=== PATIENT | male | born 1950 | race American Indian/Alaskan Native ===

== ENCOUNTER 2017-02-16 16:07 | Inpatient (IN) | payer MEDICARE ==
[2017-02-16] MEDS ORDERED: ADRENALIN ONE (16:11)
[2017-02-16] MEDS ORDERED: ADRENALINE P/F SUB-Q ONE (16:11)
[2017-02-16] MEDS ORDERED: PEPCID IV ONE (16:12)
--- NOTE | 2017-02-16 16:31 | Emergency Department Report ---
HPI - General Chief Complaint: Allergic Reaction Time Seen by Provider: 02/16/17 16:11 - HPI HPI: This is a 66-year-old Afro-[place] male presents the emergency department by EMS from home with complaint of swelling of the tongue and throat that occurred about 2 hours prior to presentation. He denies any swelling of the lips, trauma , shortness of breath, chest pain. However the patient is unable to swallow liquids or his secretions secondary to the symptoms. The patient is on lisinopril. He has never had this happen previously. He has a history of CHF, diabetes and hypertension. His primary care doctor is a Dr. Lao. He did not take anything prior to presentation but was given 125 mg of Solu-Medrol and 25 mg IV Benadryl in route by EMS. ED Past Medical Hx - Past Medical History Hx Hypertension: Yes Hx Congestive Heart Failure: Yes Hx Diabetes: Yes - Surgical History Additional Surgical History: "side surgery for infection" - Social History Smoking Status: Current Every Day Smoker Substance Use Type: Alcohol - Medications Home Medications: Home Medications Medication Instructions Recorded Confirmed Last Taken Type Ibuprofen [Advil 100 MG tab] 200 mg PO Q6H PRN 07/04/16 02/16/17 Unknown History Hydrochlorothiazide [HCTZ] 25 mg PO QDAY #60 tablet 08/13/16 02/16/17 Unknown Rx Lisinopril [Zestril TAB] 40 mg PO QDAY 02/16/17 02/16/17 Unknown History Metformin HCl [Metformin HCl ER] 500 mg PO ONCE 02/16/17 02/16/17 Unknown History Pantoprazole Sodium 40 tab PO ONCE 02/16/17 02/16/17 Unknown History ED Review of Systems ROS: Stated complaint: ANGIO EDEMA Other details as noted in HPI Comment: All other systems reviewed and negative Constitutional: denies: chills, fever Eyes: denies: eye pain, eye discharge, vision change ENT: other (swelling of throat and tongue). denies: ear pain Respiratory: denies: cough, shortness of breath, wheezing Cardiovascular: denies: chest pain, palpitations Gastrointestinal: denies: abdominal pain, nausea, diarrhea Genitourinary: denies: urgency, dysuria Musculoskeletal: denies: back pain, joint swelling, arthralgia Skin: denies: rash, lesions Neurological: denies: headache, weakness, paresthesias Physical Exam - Physical Exam Vital Signs: Vital Signs 02/16/17 16:10 Temperature 98.9 F Pulse Rate 72 Respiratory 20 Rate Blood Pressure 180/93 O2 Sat by Pulse 98 Oximetry Physical Exam: GENERAL: The patient is well-developed well-nourished. HEENT: Normocephalic. Atraumatic. Extraocular motions are intact. Patient has moist mucous membranes. Pupils equal reactive to light bilaterally. Patient has a mallempati of 4. Patient has a swollen tongue. No trismus. There is no active drooling but the patient sounds as if he is unable to swallow or pass his own secretions. NECK: Supple. Trachea is midline. CHEST/LUNGS: Clear to auscultation. There is no respiratory distress noted. HEART/CARDIOVASCULAR: Regular. There is no tachycardia. There is no gallop rub or murmur. ABDOMEN: Abdomen is soft, nontender. Patient has normal bowel sounds. There is no abdominal distention. Obese habitus. SKIN: Skin is warm and dry. NEURO: The patient is awake, alert, and oriented. The patient is cooperative. The patient has no focal neurologic deficits. Patient has muffled speech secondary to swelling in his throat and collection of his secretions in the back of the oropharynx but it does not appear to be slurred speech. MUSCULOSKELETAL: There is no tenderness or deformity. There is no limitation range of motion. There is no evidence of acute injury. ED Course Vital Signs 02/16/17 16:10 Temperature 98.9 F Pulse Rate 72 Respiratory 20 Rate Blood Pressure 180/93 O2 Sat by Pulse 98 Oximetry - Intubation Time Out Performed: Yes Sedative: Etomidate Mg Given: 20 Paralytic: Succinylcholine Mg Given: 120 Laryngoscope: fiberoptic video scope Size: 4 ET Tube Size: 7.5 Tube Secured Depth (cm): 25 Tube Secured Location: lips Tube Placement Confirmation: visualized tube passing t, equal breath sounds bilat, confirmation by capnometr Intubation Complications: difficult intubation, hypoxia (the patient had some transient hypoxia on pulse ox but it came back up with bag valve ventilation) Additional Comments: Patient was a difficult airway secondary to angioedema. An attempt was made with glydescope and the vocal cords were visible but it was hard to pass the ET tube secondary to swelling and secretions. Attempt was made with a 4 Mac blade but once again the intubation was difficult. Patient had some transient hypoxia or desaturation on pulse ox so attempt was stopped and patient recieved bag valve mask ventilation. Anesthesia came bedside and intubated the patient using glydescope. At this point patient had bilateral breath sounds, condensation in the tube and patient's pulse ox 98%. ED Medical Decision Making - Lab Data Result diagrams: 02/16/17 16:49 02/16/17 16:49 - EKG Data -: EKG Interpreted by Me EKG shows normal: sinus rhythm, axis, intervals, QRS complexes, ST-T waves ( Nonspecific ST-T waves) Rate: tachycardia (109 bpm) - EKG Data When compared to previous EKG there are: previous EKG unavailable Interpretation: other (sinus tachycardia, nonspecific ST-T changes) - Radiology Data Radiology results: image reviewed interpreted by me: Chest x-ray shows the ET tube just below the clavicular heads. No pneumothorax. No obvious pleural effusion or pneumonia. - Medical Decision Making 66-year-old male presents to the emergency department with angioedema of the tongue and feeling as if his throat is swollen. The patient is talking garbled secondary to a collection of secretions in the back of the throat. He already received Solu-Medrol and Benadryl in route. Patient was given Pepcid and epinephrine in the emergency department. Continued to watch him to see if he would improve but he did not. But the patient not handling his secretions and the complaint of tongue and throat swelling, there was concern for impending airway failure. I spoke with the patient in detail about the benefits and need for intubation as well as the risks of this procedure and he agreed to proceed. Patient was given etomidate and succinylcholine for RSI. The patient had appropriate sedation and paralysis, and attempt was made with the glydescope. The vocal cords were visible but due to the angioedema and swelling it was hard to pass the tube. When this did not work the patient received bag valve ventilation. An attempt was then made with a Mac 4 blade but there was too may secretions seen and no obvious visible cords. Patient started having some desaturation so this attempt was stopped and we did bag valve ventilation. With 2 failed attempts, I was preparing for possible surgical airway when anesthesia arrived and was able to do glydescope intubation. At this point there was condensation in the tube, bilateral breath sounds, no breath sounds over the abdomen and color change capnography. Oxygen saturation went back up to 100%. Chest x-ray postintubation shows ET tube in appropriate position, no pneumothorax and no other acute process seen in the chest. Patient's labs are mostly unremarkable the patient will remain sedated and comfortable while on the vent and he will go to the ICU where they will try to wean him back off. Accepted for admission by the hospitalist, Dr. Reyes. - Differential Diagnosis angioedema, complement deficiency, allergic reaction Critical Care Time: No Critical care attestation.: If time is entered above; I have spent that time in minutes in the direct care of this critically ill patient, excluding procedure time. ED Disposition Clinical Impression: Acute respiratory failure Qualifiers: Respiratory failure complication: unspecified whether with hypoxia or hypercapnia Qualified Code(s): J96.00 - Acute respiratory failure, unspecified whether with hypoxia or hypercapnia Angioedema Qualifiers: Encounter type: initial encounter Qualified Code(s): T78.3XXA - Angioneurotic edema, initial encounter Disposition: OP ADMITTED IP TO THIS HOSP Is pt being admited?: Yes Condition: Serious Time of Disposition: 22:23
[2017-02-16] MEDS ORDERED: AMIDATE IV ONE ×3 (16:44→17:05)
[2017-02-16] MEDS ORDERED: QUELICIN IV ONE ×2 (16:44→17:15)
[2017-02-16] MEDS ORDERED: VASELINE LIP THERAPY TP PRN (16:45)
[2017-02-16] MEDS ORDERED: ARTIFICIAL TEARS OPHTH OINT OU PRN (16:45)
[2017-02-16] MEDS ORDERED: QUELICIN ONE (17:05)
[2017-02-16] MEDS ORDERED: VERSED IV ONE (17:05)
[2017-02-16 17:11] LABS: Basophils % (Auto) 0.5 % (0.0-1.8); Eosinophils % (Auto) 1.4 % (0.0-4.3); Hematocrit 45.5 % (35.5-45.6); Hemoglobin 15.3 gm/dl (11.8-15.2); Mean Corpuscular HGB Conc 34 % (32-34); Mean Corpuscular Hemoglobin 32 pg (28-32); Mean Corpuscular Volume 94 fl (84-94); Platelet Count 154 K/mm3 (140-440); Red Blood Count 4.86 M/mm3 (3.65-5.03); Red Cell Distribution Width 14.2 % (13.2-15.2); White Blood Count 10.7 K/mm3 (4.5-11.0)
[2017-02-16] MEDS ORDERED: DIPRIVAN 10 MG/ML 1,000 MG/100 ML BOTTLE IV ONE (17:15)
[2017-02-16 17:23] LABS: BUN/Creatinine Ratio 11.25; Blood Urea Nitrogen 9 mg/dL (9-20); Calcium 9.2 mg/dL (8.4-10.2); Carbon Dioxide 24 mmol/L (22-30); Glucose 145 mg/dL (75-100)
[2017-02-16 17:24] LABS: Anion Gap 18 mmol/L; Chloride 97.8 mmol/L (98-107); Potassium 3.6 mmol/L (3.6-5.0); Sodium 136 mmol/L (137-145)
[2017-02-16] MEDS: DIPRIVAN 10 MG/ML 1,000 MG/100 ML BOTTLE IV SCH (17:27)
--- NOTE | 2017-02-16 17:29 | Admit Criteria Form ---
Admission Criteria Documentation: RESPIRATORY FAILURE GRG Clinical Indications for Admission to Inpatient Care (Place 'X' for any and all applicable criteria): Hospital admission is needed for appropriate care of the patient because of acute respiratory failure or insufficiency as indicated by ANY ONE of the following(1)(2)(3)(4)(5)(6)(7)(8): [X]I. Mechanical ventilation needed (acute invasive or noninvasive) [ ]II. Severe ventilation deficit as indicated by ANY ONE of the following (9) [ ]a) Respiratory acidosis (pH less than 7.32 and partial pressure of carbon dioxide greater than 40 mm Hg (5.3 kPa)) [ ]b) Partial pressure of carbon dioxide greater than 44 mm Hg (5.9 kPa ) (new) [ ]c) Airflow measurements less than 25% of predicted (eg, peak expiratory flow rate less than 100 L/minute) [ ]d) Forced vital capacity less than 15 mL/kg of ideal body weight, or 50% decrease in vital capacity from baseline [ ]III. Noncardiac pulmonary edema not resolving with rapid emergency treatment (8) [ ]IV. Severe respiratory distress as indicated by ANY ONE of the following: [ ]a) Severe tachypnea (respiratory rate greater than 30, greater than 45 for 6-month-old, greater than 60 for ) [ ]b) Severe hypoxemia (partial pressure of oxygen less than 50 mm Hg ( 6.7 kPa) on greater than 50% oxygen or partial pressure of oxygen to FIO2 ratio less than 200) [ ]c) Mental status deterioration from respiratory disease [X]V. Airway obstruction or inadequate protection [A](10)(11) The original [employer] content created by [employer] has been revised. The portions of the content which have been revised are identified through the use of italic text or in bold, and [facility] has neither reviewed nor approved the modified material. All other unmodified content is copyright [employer]. Please see references footnoted in the original [employer] edition 2016 Admission Criteria Met: Yes
--- NOTE | 2017-02-16 18:18 | History and Physical Report ---
History of Present Illness Chief complaint: tongue swelling History of present illness: 66 YO Male with HTN, CHF, DM, Nicotine Dependence, GERD presents to ED for evaluation. Pt has been experiencing swelling of the tongue and throat that began about 2 hours prior to presentation. Pt seen and evaluated in ED and was found to be unable to swallow liquids or control his secretions. Pt was drooling and unable to protect his airway. Pt intubated due to pending airway compromise. Past History Past Medical History: diabetes, heart failure, hypertension Past Surgical History: No surgical history, Other (reviewed) Social history: single. denies: smoking, alcohol abuse, prescription drug abuse Family history: diabetes, hypertension Medications and Allergies Allergies Allergy/AdvReac Type Severity Reaction Status Date / Time No Known Allergies Allergy Unverified 07/01/16 14:05 Home Medications Medication Instructions Recorded Confirmed Last Taken Type Ibuprofen [Advil 100 MG tab] 200 mg PO Q6H PRN 07/04/16 02/16/17 Unknown History Hydrochlorothiazide [HCTZ] 25 mg PO QDAY #60 tablet 08/13/16 02/16/17 Unknown Rx Lisinopril [Zestril TAB] 40 mg PO QDAY 02/16/17 02/16/17 Unknown History Metformin HCl [Metformin HCl ER] 500 mg PO ONCE 02/16/17 02/16/17 Unknown History Pantoprazole Sodium 40 tab PO ONCE 02/16/17 02/16/17 Unknown History Active Meds: Active Medications Hydrophilic Ointment (Vaseline Lip Therapy) 1 applic TP Q2HR PRN PRN Reason: Dry Lips Fentanyl Citrate (Fentanyl Drip Premix) 2,000 mcg in 100 mls @ 6.124 mls/hr IV TITR VENU; 1 MCG/KG/HR PRN Reason: Protocol Multi-Ingred Cream/Lotion/Oil/Oint (Artificial Tears Ophth Oint) 1 applic OU Q4HR PRN PRN Reason: Dry Eye(s) Review of Systems Constitutional: other (swelling) Exam - Constitutional Vitals: Temp Pulse Resp BP Pulse Ox 98.9 F 72 20 180/93 98 02/16/17 16:10 02/16/17 16:10 02/16/17 16:10 02/16/17 16:10 02/16/17 16:10 General appearance: Present: severe distress - Neck Neck: Present: supple - Respiratory Respiratory: bilateral: diminished - Cardiovascular Rhythm: regular Heart Sounds: Present: S1 & S2 - Extremities Extremities: no ischemia Extremity abnormal: edema Peripheral Pulses: within normal limits - Abdominal General gastrointestinal: Present: soft, non-tender, non-distended - Integumentary Integumentary: Present: clear, warm, dry - Psychiatric Psychiatric: no intact judgment & insight, no memory intact - Neurologic Neurologic: other (Intubated, Sedated, on vent) Results - Labs CBC & Chem 7: 02/16/17 16:49 02/16/17 16:49 Labs: Abnormal lab results 02/16/17 02/16/17 Range/Units 16:49 16:49 Hgb 15.3 H (11.8-15.2) gm/dl Seg Neutrophils % 76.8 H (40.0-70.0) % Seg Neutrophils # 8.2 H (1.8-7.7) K/mm3 Sodium 136 L (137-145) mmol/L Chloride 97.8 L (98-107) mmol/L Glucose 145 H (75-100) mg/dL Assessment and Plan - Patient Problems (1) Acute respiratory failure Current Visit: Yes Status: Acute Qualifiers: Respiratory failure complication: R Plan to address problem: Acute Respiratory Failure: Supplemental oxygen, nebs, wean vent as tolerated, Pulmonary consulted, SBT in AM. The high probability of a clinically significant, sudden or life threatening deterioration of the [Pulmonary,Cardiac] system(s) required my full and direct attention, intervention and personal management. The aggregate critical care time was [60] minutes. This time is in addition to time spent performing reported procedures but includes the following: [x] Data Review and interpretation [x] Patient assessment and monitoring of vital signs [x] Documentation [x] Medication orders and management (2) Angioedema Current Visit: Yes Status: Acute Qualifiers: Encounter type: E Plan to address problem: steroid therapy, supportive care (3) HTN (hypertension) Current Visit: Yes Status: Acute Qualifiers: Hypertension type: H Plan to address problem: monitor bp q shift, supportive care, hydralazine prn. (4) CHF (congestive heart failure) Current Visit: Yes Status: Chronic Qualifiers: Congestive heart failure type: C Congestive heart failure chronicity: C Plan to address problem: fluid restriction, supportive care, remote telemetry, (5) DVT prophylaxis Current Visit: Yes Status: Acute
[2017-02-16] MEDS: fentaNYL DRIP Premix 2,000 MCG/100 ML BAG IV SCH (18:38)
[2017-02-16] MEDS ORDERED: DUONEB 0.5 MG-3 MG/3 ML SOLN IH PRN (18:46)
[2017-02-16] MEDS ORDERED: DULCOLAX PR PRN (18:46)
[2017-02-16] MEDS ORDERED: ALUM-MAG HYDROX-SIMETH 200-200-20MG/5ML PO PRN (18:46)
[2017-02-16] MEDS ORDERED: MILK OF MAGNESIA PO PRN (18:46)
[2017-02-16] MEDS ORDERED: PROVENTIL IH PRN (18:52)
[2017-02-16 22:49] LABS: ISTAT Base Excess -3; ISTAT HCO3 23.7; ISTAT PCO2 46.8 (35-45); ISTAT PH 7.312 (7.35-7.45); ISTAT PO2 118 (80-105); ISTAT SO2 98; ISTAT TCO2 25
--- NOTE | 2017-02-17 07:18 | XRay Report ---
Single view chest: History: ET tube placement. Findings: Cardiomegaly. Trachea is midline. Tip of endotracheal tube in normal position. No acute consolidation, pneumothorax or pleural effusion. Impression: No acute cardiopulmonary findings.
[2017-02-17] MEDS: fentaNYL DRIP Premix 2,000 MCG/100 ML BAG IV SCH (08:37)
--- NOTE | 2017-02-17 08:38 | XRay Report ---
AP chest x-ray. History: Respiratory failure. Findings: There are no acute findings or interval changes since yesterday study on February 16. The endotracheal tube is in satisfactory position.
[2017-02-17 09:32] LABS: ISTAT Base Excess -1; ISTAT HCO3 23.9; ISTAT PCO2 40.9 (35-45); ISTAT PH 7.375 (7.35-7.45); ISTAT PO2 99 (80-105); ISTAT SO2 97; ISTAT TCO2 25
[2017-02-17] MEDS: DIPRIVAN 10 MG/ML 1,000 MG/100 ML BOTTLE IV SCH ×2 (09:41→16:09)
[2017-02-17] MEDS: PEPCID IV SCH ×2 (09:47→22:53)
[2017-02-17] MEDS: LOVENOX SUB-Q SCH (09:47)
--- NOTE | 2017-02-17 12:21 | Consultation ---
History of Present Illness Consult date: 02/17/17 Requesting physician: BLESSING CORDERO Reason for consult: other (angioedema, intubated for airway protection) History of present illness: 66 y/o male with known hypertension admitted with acute respiratory failure requiring mechanical ventilation secondary to angioedema thought secondary to GRACIE inhibitor therapy. currently patient is intubated and sedated. Stable. Past History Past Medical History: diabetes, heart failure, hypertension Past Surgical History: No surgical history, Other (reviewed) Social history: single. denies: smoking, alcohol abuse, prescription drug abuse Family history: diabetes, hypertension Medications and Allergies Allergies Allergy/AdvReac Type Severity Reaction Status Date / Time No Known Allergies Allergy Unverified 07/01/16 14:05 Home Medications Medication Instructions Recorded Confirmed Last Taken Type Ibuprofen [Advil 100 MG tab] 200 mg PO Q6H PRN 07/04/16 02/16/17 Unknown History Hydrochlorothiazide [HCTZ] 25 mg PO QDAY #60 tablet 08/13/16 02/16/17 Unknown Rx Lisinopril [Zestril TAB] 40 mg PO QDAY 02/16/17 02/16/17 Unknown History Metformin HCl [Metformin HCl ER] 500 mg PO ONCE 02/16/17 02/16/17 Unknown History Pantoprazole Sodium 40 tab PO ONCE 02/16/17 02/16/17 Unknown History Active Meds: Active Medications Al Hydrox/Mg Hydrox/Simethicone (Alum-Mag Hydrox-Simeth [id number]/5ml) 30 ml PO Q4H PRN PRN Reason: Indigestion Albuterol (Proventil) 2.5 mg IH Q6HRT PRN PRN Reason: Wheezing Bisacodyl (Dulcolax) 10 mg DE QDAY PRN PRN Reason: constipation unrelieved by MOM Diphenhydramine HCl (Benadryl) 25 mg IV Q6HR VENU Enoxaparin Sodium (Lovenox) 40 mg SUB-Q QDAY [facility] Last Admin: 02/17/17 09:47 Dose: 40 mg Famotidine (Pepcid) 20 mg IV BID [facility] Last Admin: 02/17/17 09:47 Dose: 20 mg Hydrophilic Ointment (Vaseline Lip Therapy) 1 applic TP Q2HR PRN PRN Reason: Dry Lips Fentanyl Citrate (Fentanyl Drip Premix) 2,000 mcg in 100 mls @ 6.124 mls/hr IV TITR VENU; 1 MCG/KG/HR PRN Reason: Protocol Last Admin: 02/17/17 08:37 Dose: 1 mcg/kg/hr, 6.124 mls/hr Propofol (Diprivan 10 Mg/Ml) 1,000 mg in 100 mls @ 3.674 mls/hr IV TITR VENU; 5 MCG/KG/MIN PRN Reason: Protocol Last Admin: 02/17/17 09:41 Dose: 30 mcg/kg/min, 22.045 mls/hr Magnesium Hydroxide (Milk Of Magnesia) 30 ml PO Q4H PRN PRN Reason: Constipation Methylprednisolone Sodium Succinate (Solu-Medrol) 60 mg IV Q8HR VENU Multi-Ingred Cream/Lotion/Oil/Oint (Artificial Tears Ophth Oint) 1 applic OU Q4HR PRN PRN Reason: Dry Eye(s) Review of Systems ROS unobtainable: due to endotracheal tube Physical Examination Vital signs: Vital Signs Temp Pulse Resp BP Pulse Ox 98.9 F 72 20 180/93 98 02/16/17 16:10 02/16/17 16:10 02/16/17 16:10 02/16/17 16:10 02/16/17 16:10 General appearance: no acute distress, alert Eyes: non-icteric ENT: other (orally intubated and sedated) Neck: supple Effort: normal Ascultation: Bilateral: clear Percussion: Bilateral: not dull Cardiovascular: regular rate and rhythm Gastrointestinal: normoactive bowel sounds, soft, non-tender Extremities: no cyanosis, no edema, pink and warm, pulses normal normal mental status, non-focal exam mood appropriate, affect normal Results - Laboratory Findings CBC and BMP: 02/16/17 16:49 02/16/17 16:49 ABG POC ABG pH 7.375 (7.35-7.45) 02/17/17 09:22 POC ABG pCO2 40.9 (35-45) 02/17/17 09:22 POC ABG pO2 99 (80-105) 02/17/17 09:22 POC ABG HCO3 23.9 02/17/17 09:22 POC ABG Total CO2 25 02/17/17 09:22 POC ABG O2 Sat 97 02/17/17 09:22 Abnormal lab findings: Abnormal Labs 02/16/17 02/17/17 22:16 07:35 POC ABG pH 7.312 L POC ABG pCO2 46.8 H POC ABG pO2 118 H POC Glucose 187 H Assessment and Plan 66 y/o male with acute respiratory failure secondary to angioedema thought secondary GRACIE inhibitor therapy. 1. Increase steroids to 60q8 2. Scheduled benadryl 3. Will need to increase frequency of fingersticks given increase in roids and diabetes 4. Daily cuff leak tests 5. BP control 6. Need to add gracie as allergy once family brings in remainder of medication list, to make sure this is the only medicine that could have resulted in this. CCT 31
[2017-02-17] MEDS: BENADRYL IV SCH (13:01)
--- NOTE | 2017-02-17 19:27 | Progress Note ---
Assessment and Plan Assessment and plan: 1. Acute respiratory failure Due to angioedema and inability to protect the airway Intubated Pulmonary following 2. Angioedema Likely secondary to lisinopril (which was recently started) Discontinued On IV corticosteroids, antihistamines Supportive care (intubated) 3. HTN Currently BP within normal limits on no medications ACEI discontinued due to angina edema If BP trends up, will start diuretic/BB?CCB 4. ? CHF Unsure abut diagnosis of CHF CXR showing cardiomegaly and vascular congestion On GRACIE inhibitor and HCTZ at home Will discuss with family to see if he is followed by a icing coater or had a recent echocardiogram GRACIE inhibitor discontinued due to angioedema Consider starting BB along with diuretic +/- CCB 5. DM At home on Metformin SSI based on accu-checks while he is on corticosteroids 6. DVT/GI prophylaxis History Interval history: intubated and sedated this morning, no events overnight family present, updated; stating that he was recently strated on Lisinopril, medications that most likely caused the angioedema Hospitalist Physical - Constitutional Vitals: Temp Pulse Resp BP Pulse Ox 98.3 F 59 L 20 132/70 98 02/17/17 16:00 02/17/17 17:17 02/17/17 16:40 02/17/17 16:40 02/17/17 16:40 General appearance: Present: no acute distress, obese - EENT Eyes: Present: PERRL - Neck Neck: Present: supple. Absent: enlarged thyroid, masses or JVD - Respiratory Respiratory effort: other (intubated) Respiratory: bilateral: CTA, negative: rhonchi, wheezing - Cardiovascular Rhythm: regular Heart Sounds: Present: S1 & S2. Absent: systolic murmur - Extremities Extremities: no ischemia - Abdominal General gastrointestinal: soft, non-tender, non-distended, normal bowel sounds - Psychiatric Psychiatric: other (sedated) - Neurologic Neurologic: other (unable to assess) Results - Labs CBC & Chem 7: 02/16/17 16:49 02/16/17 16:49 Labs: Laboratory Last Values WBC 10.7 K/mm3 (4.5-11.0) 02/16/17 16:49 RBC 4.86 M/mm3 (3.65-5.03) 02/16/17 16:49 Hgb 15.3 gm/dl (11.8-15.2) H 02/16/17 16:49 Hct 45.5 % (35.5-45.6) 02/16/17 16:49 MCV 94 fl (84-94) 02/16/17 16:49 MCH 32 pg (28-32) 02/16/17 16:49 MCHC 34 % (32-34) 02/16/17 16:49 RDW 14.2 % (13.2-15.2) 02/16/17 16:49 Plt Count 154 K/mm3 (140-440) 02/16/17 16:49 Lymph % (Auto) 15.2 % (13.4-35.0) 02/16/17 16:49 [place] % (Auto) 6.1 % (0.0-7.3) 02/16/17 16:49 Eos % (Auto) 1.4 % (0.0-4.3) 02/16/17 16:49 Baso % (Auto) 0.5 % (0.0-1.8) 02/16/17 16:49 Lymph # 1.6 K/mm3 (1.2-5.4) 02/16/17 16:49 [place] # 0.7 K/mm3 (0.0-0.8) 02/16/17 16:49 Eos # 0.2 K/mm3 (0.0-0.4) 02/16/17 16:49 Baso # 0.1 K/mm3 (0.0-0.1) 02/16/17 16:49 Seg Neutrophils % 76.8 % (40.0-70.0) H 02/16/17 16:49 Seg Neutrophils # 8.2 K/mm3 (1.8-7.7) H 02/16/17 16:49 POC ABG pH 7.375 (7.35-7.45) 02/17/17 09:22 POC ABG pCO2 40.9 (35-45) 02/17/17 09:22 POC ABG pO2 99 (80-105) 02/17/17 09:22 POC ABG HCO3 23.9 02/17/17 09:22 POC ABG Total CO2 25 02/17/17 09:22 POC ABG O2 Sat 97 02/17/17 09:22 POC ABG Base Excess -1 02/17/17 09:22 FiO2 40 % 02/17/17 09:22 Sodium 136 mmol/L (137-145) L 02/16/17 16:49 Potassium 3.6 mmol/L (3.6-5.0) 02/16/17 16:49 Chloride 97.8 mmol/L (98-107) L 02/16/17 16:49 Carbon Dioxide 24 mmol/L (22-30) 02/16/17 16:49 Anion Gap 18 mmol/L 02/16/17 16:49 BUN 9 mg/dL (9-20) 02/16/17 16:49 Creatinine 0.8 mg/dL (0.8-1.5) 02/16/17 16:49 Estimated GFR > 60 ml/min 02/16/17 16:49 BUN/Creatinine Ratio 11.25 % 02/16/17 16:49 Glucose 145 mg/dL (75-100) H 02/16/17 16:49 POC Glucose 184 (70-105) H 02/17/17 15:27 Calcium 9.2 mg/dL (8.4-10.2) 02/16/17 16:49 Troponin T < 0.010 ng/mL (0.00-0.029) 02/16/17 16:49
[2017-02-17] MEDS: NOVOLOG SUB-Q SCH (22:52)
[2017-02-18] MEDS: BENADRYL IV SCH ×5 (06:57→18:29)
[2017-02-18] MEDS: fentaNYL DRIP Premix 2,000 MCG/100 ML BAG IV SCH (06:58)
[2017-02-18 07:29] LABS: ISTAT Base Excess 4; ISTAT HCO3 28.6; ISTAT PCO2 43.2 (35-45); ISTAT PH 7.429 (7.35-7.45); ISTAT PO2 108 (80-105); ISTAT SO2 98; ISTAT TCO2 30
[2017-02-18] MEDS: NOVOLOG SUB-Q SCH ×6 (08:33→22:29)
[2017-02-18] MEDS: LOVENOX SUB-Q SCH (09:52)
[2017-02-18] MEDS: PEPCID IV SCH ×2 (09:53→22:27)
--- NOTE | 2017-02-18 09:57 | XRay Report ---
Single view chest: Compared to 02/17/17. History: Followup of respiratory failure. Findings: Cardiomegaly. Trachea is midline. Tip of endotracheal tube in normal position. No consolidation, pneumothorax or pleural effusion. Impression No acute cardiopulmonary findings.
--- NOTE | 2017-02-18 11:37 | Progress Note ---
Assessment and Plan 66 y/o male with acute respiratory failure secondary to angioedema thought secondary GRACIE inhibitor therapy. 1. Increase steroids to 125q8 2. Scheduled benadryl to continue 3. Continue q4hour fingersticks 4. Daily cuff leak tests 5. BP control 6. Need to add gracie as allergy once family brings in remainder of medication list, to make sure this is the only medicine that could have resulted in this. CCT 31 Subjective Date of service: 02/18/17 Interval history: No acute events. Still no air leak. Nursing was unable to pass DH on yesterday thought secondary to swelling. Unable to feed patient on yesterday. Objective Vital Signs - 12hr 02/17/17 02/17/17 02/18/17 23:40 23:50 00:00 Temperature 99.0 F Pulse Rate 59 L 64 67 Respiratory 20 20 20 Rate Blood Pressure 140/71 140/71 144/79 O2 Sat by Pulse 97 99 92 Oximetry 02/18/17 02/18/17 02/18/17 00:10 00:20 00:21 Temperature Pulse Rate 71 67 62 Respiratory 22 11 L Rate Blood Pressure 144/79 144/79 140/71 O2 Sat by Pulse 98 96 95 Oximetry 02/18/17 02/18/17 02/18/17 00:30 00:40 00:50 Temperature Pulse Rate 68 63 64 Respiratory 14 20 20 Rate Blood Pressure 144/79 144/79 144/79 O2 Sat by Pulse 97 97 96 Oximetry 02/18/17 02/18/17 02/18/17 01:00 01:10 01:20 Temperature Pulse Rate 63 63 60 Respiratory 20 20 20 Rate Blood Pressure 139/79 139/79 139/79 O2 Sat by Pulse 93 97 96 Oximetry 02/18/17 02/18/17 02/18/17 01:30 01:40 01:50 Temperature Pulse Rate 64 62 64 Respiratory 20 20 20 Rate Blood Pressure 139/79 139/79 139/79 O2 Sat by Pulse 97 97 97 Oximetry 02/18/17 02/18/17 02/18/17 02:00 02:10 02:20 Temperature Pulse Rate 60 59 L 59 L Respiratory 20 20 20 Rate Blood Pressure 136/78 136/78 136/78 O2 Sat by Pulse 92 97 97 Oximetry 02/18/17 02/18/17 02/18/17 02:30 02:40 02:50 Temperature Pulse Rate 59 L 61 65 Respiratory 20 20 18 Rate Blood Pressure 136/78 136/78 136/78 O2 Sat by Pulse 96 99 99 Oximetry 02/18/17 02/18/17 02/18/17 03:00 03:10 03:20 Temperature Pulse Rate 57 L 58 L 56 L Respiratory 20 20 20 Rate Blood Pressure 136/78 124/71 O2 Sat by Pulse 98 98 98 Oximetry 02/18/17 02/18/17 02/18/17 03:30 03:40 03:52 Temperature Pulse Rate 58 L 59 L 60 Respiratory 20 20 19 Rate Blood Pressure 124/71 124/71 124/71 O2 Sat by Pulse 98 98 97 Oximetry 02/18/17 02/18/17 02/18/17 04:00 04:10 04:20 Temperature 98.9 F Pulse Rate 57 L 64 58 L Respiratory 20 20 20 Rate Blood Pressure 124/71 129/71 129/71 O2 Sat by Pulse 97 96 98 Oximetry 02/18/17 02/18/17 02/18/17 04:30 04:40 04:50 Temperature Pulse Rate 65 65 60 Respiratory 17 20 20 Rate Blood Pressure 129/71 129/71 129/71 O2 Sat by Pulse 99 98 99 Oximetry 02/18/17 02/18/17 02/18/17 05:00 05:10 05:20 Temperature Pulse Rate 66 62 63 Respiratory 20 19 20 Rate Blood Pressure 136/78 136/78 136/78 O2 Sat by Pulse 92 97 97 Oximetry 02/18/17 02/18/17 02/18/17 05:30 05:40 05:50 Temperature Pulse Rate 67 66 63 Respiratory 20 17 20 Rate Blood Pressure 136/78 136/78 136/78 O2 Sat by Pulse 97 97 98 Oximetry 02/18/17 02/18/17 02/18/17 06:00 06:10 06:20 Temperature Pulse Rate 61 65 62 Respiratory 20 19 20 Rate Blood Pressure 136/78 140/74 140/74 O2 Sat by Pulse 96 97 95 Oximetry 02/18/17 02/18/17 02/18/17 06:30 06:40 06:50 Temperature Pulse Rate 62 62 61 Respiratory 20 19 20 Rate Blood Pressure 140/74 140/74 140/74 O2 Sat by Pulse 97 97 97 Oximetry 02/18/17 02/18/17 02/18/17 07:00 07:10 07:20 Temperature Pulse Rate 60 57 L 57 L Respiratory 20 20 20 Rate Blood Pressure 140/74 136/77 136/77 O2 Sat by Pulse 96 96 97 Oximetry 02/18/17 02/18/17 02/18/17 07:30 07:37 07:40 Temperature Pulse Rate 62 60 61 Respiratory 20 20 Rate Blood Pressure 136/77 136/77 136/77 O2 Sat by Pulse 98 97 97 Oximetry 02/18/17 02/18/17 02/18/17 07:45 07:50 08:00 Temperature 98.6 F Pulse Rate 75 61 Respiratory 20 20 Rate Blood Pressure 136/77 136/77 O2 Sat by Pulse 98 97 Oximetry 02/18/17 02/18/17 02/18/17 08:03 08:10 08:20 Temperature Pulse Rate 64 60 59 L Respiratory 20 20 Rate Blood Pressure 140/80 140/80 140/80 O2 Sat by Pulse 97 98 98 Oximetry 02/18/17 02/18/17 02/18/17 08:30 08:40 08:50 Temperature Pulse Rate 59 L 59 L 59 L Respiratory 20 20 20 Rate Blood Pressure 140/80 140/80 140/80 O2 Sat by Pulse 97 98 98 Oximetry 02/18/17 09:00 Temperature Pulse Rate 66 Respiratory 20 Rate Blood Pressure 140/80 O2 Sat by Pulse 96 Oximetry Constitutional: no acute distress, alert Eyes: non-icteric ENT: other (orally intubated and sedated) Neck: supple Effort: normal Ascultation: Bilateral: clear Percussion: Bilateral: not dull Cardiovascular: regular rate and rhythm Gastrointestinal: normoactive bowel sounds, soft, non-tender Extremities: no cyanosis, no edema, pink and warm, pulses normal Neurologic: normal mental status, non-focal exam Psychiatric: mood appropriate, affect normal CBC and BMP: 02/16/17 16:49 02/16/17 16:49 ABG, PT/INR, D-dimer: ABG POC ABG pH 7.429 (7.35-7.45) 02/18/17 04:35 POC ABG pCO2 43.2 (35-45) 02/18/17 04:35 POC ABG pO2 108 (80-105) H 02/18/17 04:35 POC ABG HCO3 28.6 02/18/17 04:35 POC ABG Total CO2 30 02/18/17 04:35 POC ABG O2 Sat 98 02/18/17 04:35 Abnormal lab findings: Abnormal Labs 02/16/17 02/17/17 02/17/17 22:16 07:35 12:05 POC ABG pH 7.312 L POC ABG pCO2 46.8 H POC ABG pO2 118 H POC Glucose 187 H 167 H 02/17/17 02/17/17 02/18/17 15:27 22:41 02:37 POC ABG pH POC ABG pCO2 POC ABG pO2 POC Glucose 184 H 187 H 156 H 02/18/17 02/18/17 02/18/17 04:35 05:41 07:32 POC ABG pH POC ABG pCO2 POC ABG pO2 108 H POC Glucose 144 H 149 H
--- NOTE | 2017-02-18 15:05 | XRay Report ---
KUB History: Dobbhoff placement. Findings: Tip of Dobbhoff feeding tube is noted in mid stomach. No bowel distention. Impression: Tip of Dobbhoff feeding tube in mid stomach.
--- NOTE | 2017-02-18 17:50 | Progress Note ---
Assessment and Plan Assessment and plan: 1. Acute respiratory failure Due to angioedema and inability to protect the airway Remains intubated Pulmonary following 2. Angioedema Likely secondary to lisinopril (which was recently started) Discontinued On IV corticosteroids (dose increased), antihistamines Supportive care (intubated) 3. HTN Currently BP within normal limits on no medications ACEI discontinued due to angina edema If BP trends up, will start diuretic/BB?CCB 4. ? CHF Unsure abut diagnosis of CHF CXR showing cardiomegaly and vascular congestion On GRACIE inhibitor and HCTZ at home Will discuss with family to see if he is followed by a offbearer or had a recent echocardiogram GRACIE inhibitor discontinued due to angioedema Consider starting BB along with diuretic +/- CCB 5. DM At home on Metformin SSI based on accu-checks while he is on corticosteroids 6. DVT/GI prophylaxis History Interval history: remains intubated (secondary to angioedema); having large amount of secretions Hospitalist Physical - Constitutional Vitals: Temp Pulse Resp BP Pulse Ox 99.3 F 58 L 20 141/75 99 02/18/17 16:00 02/18/17 16:00 02/18/17 16:00 02/18/17 16:00 02/18/17 16:00 General appearance: Present: no acute distress, obese - EENT Eyes: Present: PERRL - Neck Neck: Present: supple. Absent: enlarged thyroid, masses or JVD - Respiratory Respiratory effort: other (intubated) Respiratory: bilateral: CTA, negative: rhonchi, wheezing - Cardiovascular Rhythm: regular Heart Sounds: Present: S1 & S2. Absent: systolic murmur - Extremities Extremities: no ischemia - Abdominal General gastrointestinal: soft, non-tender, non-distended, normal bowel sounds - Psychiatric Psychiatric: other (sedated) - Neurologic Neurologic: other (unable to assess) Results - Labs CBC & Chem 7: 02/16/17 16:49 02/16/17 16:49 Labs: Laboratory Last Values WBC 10.7 K/mm3 (4.5-11.0) 02/16/17 16:49 RBC 4.86 M/mm3 (3.65-5.03) 02/16/17 16:49 Hgb 15.3 gm/dl (11.8-15.2) H 02/16/17 16:49 Hct 45.5 % (35.5-45.6) 02/16/17 16:49 MCV 94 fl (84-94) 02/16/17 16:49 MCH 32 pg (28-32) 02/16/17 16:49 MCHC 34 % (32-34) 02/16/17 16:49 RDW 14.2 % (13.2-15.2) 02/16/17 16:49 Plt Count 154 K/mm3 (140-440) 02/16/17 16:49 Lymph % (Auto) 15.2 % (13.4-35.0) 02/16/17 16:49 [place] % (Auto) 6.1 % (0.0-7.3) 02/16/17 16:49 Eos % (Auto) 1.4 % (0.0-4.3) 02/16/17 16:49 Baso % (Auto) 0.5 % (0.0-1.8) 02/16/17 16:49 Lymph # 1.6 K/mm3 (1.2-5.4) 02/16/17 16:49 [place] # 0.7 K/mm3 (0.0-0.8) 02/16/17 16:49 Eos # 0.2 K/mm3 (0.0-0.4) 02/16/17 16:49 Baso # 0.1 K/mm3 (0.0-0.1) 02/16/17 16:49 Seg Neutrophils % 76.8 % (40.0-70.0) H 02/16/17 16:49 Seg Neutrophils # 8.2 K/mm3 (1.8-7.7) H 02/16/17 16:49 POC ABG pH 7.429 (7.35-7.45) 02/18/17 04:35 POC ABG pCO2 43.2 (35-45) 02/18/17 04:35 POC ABG pO2 108 (80-105) H 02/18/17 04:35 POC ABG HCO3 28.6 02/18/17 04:35 POC ABG Total CO2 30 02/18/17 04:35 POC ABG O2 Sat 98 02/18/17 04:35 POC ABG Base Excess 4 02/18/17 04:35 FiO2 40 % 02/18/17 04:35 Sodium 136 mmol/L (137-145) L 02/16/17 16:49 Potassium 3.6 mmol/L (3.6-5.0) 02/16/17 16:49 Chloride 97.8 mmol/L (98-107) L 02/16/17 16:49 Carbon Dioxide 24 mmol/L (22-30) 02/16/17 16:49 Anion Gap 18 mmol/L 02/16/17 16:49 BUN 9 mg/dL (9-20) 02/16/17 16:49 Creatinine 0.8 mg/dL (0.8-1.5) 02/16/17 16:49 Estimated GFR > 60 ml/min 02/16/17 16:49 BUN/Creatinine Ratio 11.25 % 02/16/17 16:49 Glucose 145 mg/dL (75-100) H 02/16/17 16:49 POC Glucose 114 (70-105) H 02/18/17 11:56 Calcium 9.2 mg/dL (8.4-10.2) 02/16/17 16:49 Troponin T < 0.010 ng/mL (0.00-0.029) 02/16/17 16:49
[2017-02-19] MEDS: NOVOLOG SUB-Q SCH ×6 (02:30→21:55)
[2017-02-19] MEDS: BENADRYL IV SCH ×4 (02:32→18:32)
[2017-02-19 05:13] LABS: ISTAT Base Excess 4; ISTAT HCO3 26.9; ISTAT PCO2 34.5 (35-45); ISTAT PH 7.499 (7.35-7.45); ISTAT PO2 115 (80-105); ISTAT SO2 99; ISTAT TCO2 28
--- NOTE | 2017-02-19 08:12 | Progress Note ---
Assessment and Plan Assessment and plan: 66 YO Male with HTN, CHF, DM, Nicotine Dependence, GERD presents to ED for experiencing swelling of the tongue and throat that began about 2 hours prior to presentation. Pt seen and evaluated in ED and was found to be unable to swallow liquids or control his secretions and unable to protect his airway. Pt intubated due to pending airway compromise. Acute respiratory failure -Due to angioedema and inability to protect the airway - Remains intubated, Pulmonary following Angioedema -Likely secondary to lisinopril (which was recently started) -Discontinued -On IV corticosteroids (dose increased), antihistamines HTN, benign -Currently BP within normal limits on no medications -ACEI discontinued due to angina edema -If BP trends up, will start diuretic/BB?CCB ? CHF -Unsure abut diagnosis of CHF -CXR showing cardiomegaly and vascular congestion - On GRACIE inhibitor and HCTZ at home - GRACIE inhibitor discontinued due to angioedema - Consider starting BB along with diuretic +/- CCB - will get 2d echo DM type 2 -At home on Metformin - SSI based on accu-checks while he is on corticosteroids DVT/GI prophylaxis History Interval history: Patient seen and examined. Medical records and medication list reviewed. No acute event overnight noted by the RN. Patient remained intubated and sedated Discussed plan of care at bedside with patient's RN. Hospitalist Physical - Physical exam Narrative exam: General appearance: Present: no acute distress, obese - EENT Eyes: Present: PERRL - Neck Neck: Present: supple. Absent: enlarged thyroid, masses or JVD - Respiratory Respiratory effort: other (intubated) Respiratory: bilateral: CTA, negative: rhonchi, wheezing - Cardiovascular Rhythm: regular Heart Sounds: Present: S1 & S2. Absent: systolic murmur - Extremities Extremities: no ischemia - Abdominal General gastrointestinal: soft, non-tender, non-distended, normal bowel sounds - Psychiatric Psychiatric: not agitated - Neurologic Neurologic: minimally sedated, follows commend - Constitutional Vitals: Temp Pulse Resp BP Pulse Ox 98.7 F 61 20 140/79 90 02/19/17 04:00 02/19/17 06:00 02/19/17 06:00 02/19/17 06:00 02/19/17 06:00 General appearance: Present: no acute distress, obese Results - Labs CBC & Chem 7: 02/16/17 16:49 02/16/17 16:49 Labs: Laboratory Last Values WBC 10.7 K/mm3 (4.5-11.0) 02/16/17 16:49 RBC 4.86 M/mm3 (3.65-5.03) 02/16/17 16:49 Hgb 15.3 gm/dl (11.8-15.2) H 02/16/17 16:49 Hct 45.5 % (35.5-45.6) 02/16/17 16:49 MCV 94 fl (84-94) 02/16/17 16:49 MCH 32 pg (28-32) 02/16/17 16:49 MCHC 34 % (32-34) 02/16/17 16:49 RDW 14.2 % (13.2-15.2) 02/16/17 16:49 Plt Count 154 K/mm3 (140-440) 02/16/17 16:49 Lymph % (Auto) 15.2 % (13.4-35.0) 02/16/17 16:49 [place] % (Auto) 6.1 % (0.0-7.3) 02/16/17 16:49 Eos % (Auto) 1.4 % (0.0-4.3) 02/16/17 16:49 Baso % (Auto) 0.5 % (0.0-1.8) 02/16/17 16:49 Lymph # 1.6 K/mm3 (1.2-5.4) 02/16/17 16:49 [place] # 0.7 K/mm3 (0.0-0.8) 02/16/17 16:49 Eos # 0.2 K/mm3 (0.0-0.4) 02/16/17 16:49 Baso # 0.1 K/mm3 (0.0-0.1) 02/16/17 16:49 Seg Neutrophils % 76.8 % (40.0-70.0) H 02/16/17 16:49 Seg Neutrophils # 8.2 K/mm3 (1.8-7.7) H 02/16/17 16:49 POC ABG pH 7.499 (7.35-7.45) H 02/19/17 04:47 POC ABG pCO2 34.5 (35-45) L 02/19/17 04:47 POC ABG pO2 115 (80-105) H 02/19/17 04:47 POC ABG HCO3 26.9 02/19/17 04:47 POC ABG Total CO2 28 02/19/17 04:47 POC ABG O2 Sat 99 02/19/17 04:47 POC ABG Base Excess 4 02/19/17 04:47 FiO2 30 % 02/19/17 04:47 Sodium 136 mmol/L (137-145) L 02/16/17 16:49 Potassium 3.6 mmol/L (3.6-5.0) 02/16/17 16:49 Chloride 97.8 mmol/L (98-107) L 02/16/17 16:49 Carbon Dioxide 24 mmol/L (22-30) 02/16/17 16:49 Anion Gap 18 mmol/L 02/16/17 16:49 BUN 9 mg/dL (9-20) 02/16/17 16:49 Creatinine 0.8 mg/dL (0.8-1.5) 02/16/17 16:49 Estimated GFR > 60 ml/min 02/16/17 16:49 BUN/Creatinine Ratio 11.25 % 02/16/17 16:49 Glucose 145 mg/dL (75-100) H 02/16/17 16:49 POC Glucose 142 (70-105) H 02/19/17 05:28 Calcium 9.2 mg/dL (8.4-10.2) 02/16/17 16:49 Troponin T < 0.010 ng/mL (0.00-0.029) 02/16/17 16:49 - Imaging and Cardiology Chest x-ray: report reviewed
--- NOTE | 2017-02-19 09:59 | Progress Note ---
Assessment and Plan 66 y/o male with acute respiratory failure secondary to angioedema thought secondary GRACIE inhibitor therapy. 1. Keep steroids at 125q8. 2. Scheduled benadryl to continue 3. Continue q4hour fingersticks 4. Daily cuff leak tests, failed volumes today but audbile leak heard 5. BP control 6. Need to add gracie as allergy once family brings in remainder of medication list, to make sure this is the only medicine that could have resulted in this. 7. may consider FFP if not extubated by tomorrow. CCT 31 Subjective Date of service: 02/19/17 Interval history: Increased steroids yesterday to help with edema. Audible air leak but volumes did not consistently remain low. No family at bedside. Remainder is negative. Objective Vital Signs - 12hr 02/18/17 02/18/17 02/18/17 22:00 22:11 22:21 Temperature Pulse Rate 60 62 63 Respiratory 20 20 20 Rate Blood Pressure 147/83 147/83 147/83 O2 Sat by Pulse 91 99 98 Oximetry 02/18/17 02/18/17 02/18/17 22:23 22:31 22:41 Temperature Pulse Rate 62 60 60 Respiratory 20 20 Rate Blood Pressure 147/83 147/83 147/83 O2 Sat by Pulse 98 98 97 Oximetry 02/18/17 02/18/17 02/18/17 22:51 23:00 23:11 Temperature Pulse Rate 61 59 L 59 L Respiratory 20 20 20 Rate Blood Pressure 147/83 144/81 144/81 O2 Sat by Pulse 97 90 97 Oximetry 02/18/17 02/18/17 02/18/17 23:21 23:31 23:41 Temperature Pulse Rate 59 L 57 L 57 L Respiratory 20 20 20 Rate Blood Pressure 147/83 147/83 147/83 O2 Sat by Pulse 97 97 97 Oximetry 02/18/17 02/19/17 02/19/17 23:51 00:00 00:11 Temperature 98.2 F Pulse Rate 57 L 58 L 55 L Respiratory 20 20 20 Rate Blood Pressure 147/83 147/79 147/79 O2 Sat by Pulse 97 88 98 Oximetry 02/19/17 02/19/17 02/19/17 00:21 00:31 00:35 Temperature Pulse Rate 58 L 57 L 65 Respiratory 20 16 Rate Blood Pressure 147/79 147/79 O2 Sat by Pulse 98 98 97 Oximetry 02/19/17 02/19/17 02/19/17 00:41 00:51 01:00 Temperature Pulse Rate 58 L 56 L 56 L Respiratory 20 20 20 Rate Blood Pressure 147/79 147/79 150/80 O2 Sat by Pulse 98 98 89 Oximetry 02/19/17 02/19/17 02/19/17 01:11 01:21 01:31 Temperature Pulse Rate 56 L 56 L 56 L Respiratory 20 20 20 Rate Blood Pressure 150/80 150/80 150/80 O2 Sat by Pulse 98 98 98 Oximetry 02/19/17 02/19/17 02/19/17 01:41 01:51 02:00 Temperature Pulse Rate 57 L 56 L 56 L Respiratory 21 20 20 Rate Blood Pressure 150/80 150/80 145/82 O2 Sat by Pulse 98 97 92 Oximetry 02/19/17 02/19/17 02/19/17 02:11 02:21 02:31 Temperature Pulse Rate 56 L 60 56 L Respiratory 20 20 20 Rate Blood Pressure 145/82 145/82 145/82 O2 Sat by Pulse 97 97 97 Oximetry 02/19/17 02/19/17 02/19/17 02:41 02:51 03:01 Temperature Pulse Rate 55 L 59 L 55 L Respiratory 20 20 20 Rate Blood Pressure 145/82 145/82 146/78 O2 Sat by Pulse 97 97 91 Oximetry 02/19/17 02/19/17 02/19/17 03:11 03:21 03:31 Temperature Pulse Rate 55 L 56 L 57 L Respiratory 20 20 20 Rate Blood Pressure 146/78 146/78 146/78 O2 Sat by Pulse 97 97 96 Oximetry 02/19/17 02/19/17 02/19/17 03:41 03:51 04:00 Temperature 98.7 F Pulse Rate 58 L 58 L 56 L Respiratory 20 21 20 Rate Blood Pressure 146/78 146/78 141/81 O2 Sat by Pulse 98 98 93 Oximetry 02/19/17 02/19/17 02/19/17 04:11 04:21 04:31 Temperature Pulse Rate 59 L 61 60 Respiratory 20 19 18 Rate Blood Pressure 141/81 141/81 141/81 O2 Sat by Pulse 98 97 96 Oximetry 02/19/17 02/19/17 02/19/17 04:41 04:50 04:51 Temperature Pulse Rate 79 69 67 Respiratory 15 20 Rate Blood Pressure 141/81 141/81 141/81 O2 Sat by Pulse 97 99 98 Oximetry 02/19/17 02/19/17 02/19/17 05:00 05:11 05:21 Temperature Pulse Rate 66 62 75 Respiratory 19 20 15 Rate Blood Pressure 151/83 151/83 151/83 O2 Sat by Pulse 93 97 96 Oximetry 02/19/17 02/19/17 02/19/17 05:31 05:41 05:51 Temperature Pulse Rate 64 64 60 Respiratory 20 20 20 Rate Blood Pressure 151/83 151/83 151/83 O2 Sat by Pulse 96 96 96 Oximetry 02/19/17 02/19/17 02/19/17 06:00 06:11 06:21 Temperature Pulse Rate 61 61 60 Respiratory 20 16 19 Rate Blood Pressure 140/79 140/79 140/79 O2 Sat by Pulse 90 94 97 Oximetry 02/19/17 02/19/17 02/19/17 06:31 06:41 06:51 Temperature Pulse Rate 58 L 59 L 60 Respiratory 20 20 20 Rate Blood Pressure 140/79 140/79 140/79 O2 Sat by Pulse 97 96 96 Oximetry 02/19/17 02/19/17 02/19/17 07:01 07:11 07:21 Temperature Pulse Rate 59 L 59 L 58 L Respiratory 20 20 21 Rate Blood Pressure 153/88 153/88 153/88 O2 Sat by Pulse 88 97 95 Oximetry 02/19/17 02/19/17 02/19/17 07:31 07:41 07:51 Temperature Pulse Rate 56 L 61 60 Respiratory 20 17 20 Rate Blood Pressure 153/88 153/88 153/88 O2 Sat by Pulse 97 97 97 Oximetry 02/19/17 02/19/17 02/19/17 08:00 08:01 08:11 Temperature 98.5 F Pulse Rate 63 56 L Respiratory 20 20 Rate Blood Pressure 178/110 178/110 O2 Sat by Pulse 90 97 Oximetry 02/19/17 08:47 Temperature Pulse Rate 75 Respiratory Rate Blood Pressure 168/93 O2 Sat by Pulse 96 Oximetry Constitutional: no acute distress, alert Eyes: non-icteric ENT: other (orally intubated and sedated) Neck: supple Effort: normal Ascultation: Bilateral: clear Percussion: Bilateral: not dull Cardiovascular: regular rate and rhythm Gastrointestinal: normoactive bowel sounds, soft, non-tender Extremities: no cyanosis, no edema, pink and warm, pulses normal Neurologic: normal mental status, non-focal exam Psychiatric: mood appropriate, affect normal CBC and BMP: 02/16/17 16:49 02/16/17 16:49 ABG, PT/INR, D-dimer: ABG POC ABG pH 7.499 (7.35-7.45) H 02/19/17 04:47 POC ABG pCO2 34.5 (35-45) L 02/19/17 04:47 POC ABG pO2 115 (80-105) H 02/19/17 04:47 POC ABG HCO3 26.9 02/19/17 04:47 POC ABG Total CO2 28 02/19/17 04:47 POC ABG O2 Sat 99 02/19/17 04:47 Abnormal lab findings: Abnormal Labs 02/16/17 02/17/17 02/17/17 22:16 07:35 12:05 POC ABG pH 7.312 L POC ABG pCO2 46.8 H POC ABG pO2 118 H POC Glucose 187 H 167 H 02/17/17 02/17/17 02/18/17 15:27 22:41 02:37 POC ABG pH POC ABG pCO2 POC ABG pO2 POC Glucose 184 H 187 H 156 H 02/18/17 02/18/17 02/18/17 04:35 05:41 07:32 POC ABG pH POC ABG pCO2 POC ABG pO2 108 H POC Glucose 144 H 149 H 02/18/17 02/18/17 02/18/17 11:56 18:01 21:43 POC ABG pH POC ABG pCO2 POC ABG pO2 POC Glucose 114 H 184 H 179 H 02/19/17 02/19/17 02/19/17 02:19 04:47 05:28 POC ABG pH 7.499 H POC ABG pCO2 34.5 L POC ABG pO2 115 H POC Glucose 177 H 142 H 02/19/17 08:37 POC ABG pH POC ABG pCO2 POC ABG pO2 POC Glucose 149 H
[2017-02-19] MEDS ORDERED: SIMPLE SYRUP FEEDTUBE PRN ×2 (10:02)
[2017-02-19] MEDS ORDERED: SODIUM BICARBONATE FEEDTUBE PRN (10:02)
[2017-02-19] MEDS ORDERED: PANCREAZE DR 10,500 UNIT FEEDTUBE PRN (10:02)
[2017-02-19] MEDS: LOVENOX SUB-Q SCH (10:37)
[2017-02-19] MEDS: PEPCID IV SCH ×2 (10:37→21:44)
[2017-02-19] MEDS: HCTZ PO SCH (12:10)
[2017-02-19] MEDS: fentaNYL DRIP Premix 2,000 MCG/100 ML BAG IV SCH (12:10)
[2017-02-19] MEDS: APRESOLINE IV PRN (14:37)
[2017-02-20] MEDS: BENADRYL IV SCH ×4 (00:06→17:51)
[2017-02-20] MEDS: APRESOLINE IV PRN ×4 (01:22→22:35)
[2017-02-20] MEDS: NOVOLOG SUB-Q SCH ×6 (03:06→22:46)
[2017-02-20] MEDS: fentaNYL DRIP Premix 2,000 MCG/100 ML BAG IV SCH (03:37)
[2017-02-20 05:50] LABS: Hematocrit 48.7 % (35.5-45.6); Hemoglobin 16.2 gm/dl (11.8-15.2); Mean Corpuscular HGB Conc 33 % (32-34); Mean Corpuscular Hemoglobin 31 pg (28-32); Mean Corpuscular Volume 94 fl (84-94); Platelet Count 174 K/mm3 (140-440); Red Blood Count 5.18 M/mm3 (3.65-5.03)
[2017-02-20 06:40] LABS: Anion Gap 19 mmol/L; Blood Urea Nitrogen 18 mg/dL (9-20); Calcium 9.3 mg/dL (8.4-10.2); Carbon Dioxide 26 mmol/L (22-30); Chloride 97.2 mmol/L (98-107); Glucose 216 mg/dL (75-100); Potassium 3.2 mmol/L (3.6-5.0); Sodium 139 mmol/L (137-145)
[2017-02-20 08:04] LABS: Basophils % (Manual) 0 % (0.0-1.8); Blastocytes % (Manual) 0 %; Eosinophils % (Manual) 0 % (0.0-4.3)
[2017-02-20 08:05] LABS: Diff Status Complete; RBC Morphology Normal
[2017-02-20 09:48] LABS: ISTAT Base Excess 6; ISTAT HCO3 29.8; ISTAT PCO2 42.3 (35-45); ISTAT PH 7.456 (7.35-7.45); ISTAT PO2 67 (80-105); ISTAT SO2 94; ISTAT TCO2 31
[2017-02-20] MEDS ORDERED: KCL 10MEQ/100ML 10 MEQ/100 ML BAG IV SCH (10:00)
[2017-02-20] MEDS ORDERED: POTASSIUM CHLORIDE FEEDTUBE ONE (10:03)
[2017-02-20] MEDS: PEPCID IV SCH ×2 (10:49→22:35)
[2017-02-20] MEDS: LOVENOX SUB-Q SCH (10:50)
[2017-02-20] MEDS: HCTZ PO SCH (10:50)
[2017-02-20 11:08] LABS: ISTAT Base Excess 9; ISTAT HCO3 31.9; ISTAT PCO2 40.8 (35-45); ISTAT PO2 74 (80-105); ISTAT SO2 96; ISTAT TCO2 33
[2017-02-20] MEDS ORDERED: TYLENOL PO PRN (12:35)
--- NOTE | 2017-02-20 12:41 | Progress Note ---
Assessment and Plan 66 y/o male with acute respiratory failure secondary to angioedema thought secondary GRACIE inhibitor therapy. 1. Keep steroids at 125q8, decrease tomorrow 2. Scheduled benadryl to continue, will likely stop tomorrow 3. Continue q4hour fingersticks 4. Passed cuff leak test today. 5. BP control 6. Need to add gracie as allergy once family brings in remainder of medication list, to make sure this is the only medicine that could have resulted in this. 7. Will attempt extubation now. CCT 31 Subjective Date of service: 02/20/17 Interval history: Called RT this am around 8:30 to get update. Audible air leak and this am volumes dropped to 10cc's per report. No family at bedside. Patient complains of headache. Objective Vital Signs - 12hr 02/20/17 02/20/17 02/20/17 01:01 01:21 01:22 Temperature Pulse Rate 82 64 67 Respiratory 16 20 Rate Blood Pressure 151/80 193/100 193/100 O2 Sat by Pulse 93 97 Oximetry 02/20/17 02/20/17 02/20/17 02:01 03:00 03:10 Temperature Pulse Rate 79 96 H Respiratory 19 14 16 Rate Blood Pressure 166/80 183/87 O2 Sat by Pulse 88 86 Oximetry 02/20/17 02/20/17 02/20/17 04:00 04:01 05:00 Temperature 99.6 F Pulse Rate 74 79 Respiratory 20 20 Rate Blood Pressure 163/80 177/82 O2 Sat by Pulse 87 86 Oximetry 02/20/17 02/20/17 02/20/17 05:07 06:01 07:00 Temperature Pulse Rate 76 110 H 70 Respiratory 18 21 Rate Blood Pressure 177/82 194/106 160/92 O2 Sat by Pulse 94 89 92 Oximetry 02/20/17 02/20/17 02/20/17 08:00 08:21 09:01 Temperature 98.3 F Pulse Rate 66 74 103 H Respiratory 20 18 13 Rate Blood Pressure 157/87 157/87 189/114 O2 Sat by Pulse 88 98 86 Oximetry 02/20/17 02/20/17 02/20/17 10:00 10:01 10:50 Temperature Pulse Rate 74 72 78 Respiratory 18 20 Rate Blood Pressure 186/96 186/96 186/96 O2 Sat by Pulse 88 93 Oximetry 02/20/17 11:00 Temperature Pulse Rate 84 Respiratory 16 Rate Blood Pressure 194/83 O2 Sat by Pulse 95 Oximetry Constitutional: no acute distress, alert Eyes: non-icteric ENT: other (orally intubated and sedated) Neck: supple Effort: normal Ascultation: Bilateral: clear Percussion: Bilateral: not dull Cardiovascular: regular rate and rhythm Gastrointestinal: normoactive bowel sounds, soft, non-tender Extremities: no cyanosis, no edema, pink and warm, pulses normal Neurologic: normal mental status, non-focal exam Psychiatric: mood appropriate, affect normal CBC and BMP: 02/20/17 05:00 02/20/17 05:00 ABG, PT/INR, D-dimer: ABG POC ABG pH 7.500 (7.35-7.45) H 02/20/17 10:13 POC ABG pCO2 40.8 (35-45) 02/20/17 10:13 POC ABG pO2 74 (80-105) L 02/20/17 10:13 POC ABG HCO3 31.9 02/20/17 10:13 POC ABG Total CO2 33 02/20/17 10:13 POC ABG O2 Sat 96 02/20/17 10:13 Abnormal lab findings: Abnormal Labs 02/16/17 02/17/17 02/17/17 22:16 07:35 12:05 WBC RBC Hgb Hct Seg Neuts % (Manual) Lymphocytes % (Manual) Monocytes % (Manual) Seg Neutrophils # Man Lymphocytes # (Manual) Monocytes # (Manual) POC ABG pH 7.312 L POC ABG pCO2 46.8 H POC ABG pO2 118 H Potassium Chloride Glucose POC Glucose 187 H 167 H 02/17/17 02/17/17 02/18/17 15:27 22:41 02:37 WBC RBC Hgb Hct Seg Neuts % (Manual) Lymphocytes % (Manual) Monocytes % (Manual) Seg Neutrophils # Man Lymphocytes # (Manual) Monocytes # (Manual) POC ABG pH POC ABG pCO2 POC ABG pO2 Potassium Chloride Glucose POC Glucose 184 H 187 H 156 H 02/18/17 02/18/17 02/18/17 04:35 05:41 07:32 WBC RBC Hgb Hct Seg Neuts % (Manual) Lymphocytes % (Manual) Monocytes % (Manual) Seg Neutrophils # Man Lymphocytes # (Manual) Monocytes # (Manual) POC ABG pH POC ABG pCO2 POC ABG pO2 108 H Potassium Chloride Glucose POC Glucose 144 H 149 H 02/18/17 02/18/17 02/18/17 11:56 18:01 21:43 WBC RBC Hgb Hct Seg Neuts % (Manual) Lymphocytes % (Manual) Monocytes % (Manual) Seg Neutrophils # Man Lymphocytes # (Manual) Monocytes # (Manual) POC ABG pH POC ABG pCO2 POC ABG pO2 Potassium Chloride Glucose POC Glucose 114 H 184 H 179 H 02/19/17 02/19/17 02/19/17 02:19 04:47 05:28 WBC RBC Hgb Hct Seg Neuts % (Manual) Lymphocytes % (Manual) Monocytes % (Manual) Seg Neutrophils # Man Lymphocytes # (Manual) Monocytes # (Manual) POC ABG pH 7.499 H POC ABG pCO2 34.5 L POC ABG pO2 115 H Potassium Chloride Glucose POC Glucose 177 H 142 H 02/19/17 02/19/17 02/19/17 08:37 14:23 17:55 WBC RBC Hgb Hct Seg Neuts % (Manual) Lymphocytes % (Manual) Monocytes % (Manual) Seg Neutrophils # Man Lymphocytes # (Manual) Monocytes # (Manual) POC ABG pH POC ABG pCO2 POC ABG pO2 Potassium Chloride Glucose POC Glucose 149 H 203 H 191 H 02/19/17 02/20/17 02/20/17 21:46 02:53 05:00 WBC 17.0 H RBC 5.18 H Hgb 16.2 H Hct 48.7 H Seg Neuts % (Manual) 90.0 H Lymphocytes % (Manual) 1.0 L Monocytes % (Manual) 9.0 H Seg Neutrophils # Man 15.3 H Lymphocytes # (Manual) 0.2 L Monocytes # (Manual) 1.5 H POC ABG pH POC ABG pCO2 POC ABG pO2 Potassium Chloride Glucose POC Glucose 178 H 202 H 02/20/17 02/20/17 02/20/17 05:00 05:18 10:13 WBC RBC Hgb Hct Seg Neuts % (Manual) Lymphocytes % (Manual) Monocytes % (Manual) Seg Neutrophils # Man Lymphocytes # (Manual) Monocytes # (Manual) POC ABG pH 7.456 H 7.500 H POC ABG pCO2 POC ABG pO2 67 L 74 L Potassium 3.2 L Chloride 97.2 L Glucose 216 H POC Glucose
[2017-02-20] MEDS ORDERED: NORVASC PO SCH (13:00)
[2017-02-20] MEDS: APRESOLINE PO SCH ×3 (13:19→22:49)
[2017-02-20] MEDS ORDERED: NORMODYNE IV PRN (13:36)
--- NOTE | 2017-02-20 16:20 | Progress Note ---
Assessment and Plan 66 YO Male with HTN, CHF, DM, Nicotine Dependence, GERD presents to ED for experiencing swelling of the tongue and throat that began about 2 hours prior to presentation. Pt seen and evaluated in ED and was found to be unable to swallow liquids or control his secretions and unable to protect his airway. Pt intubated due to pending airway compromise. He is extubated this morning. Acute respiratory failure -Due to angioedema and inability to protect the airway - Pulmonary following, extubated - cont supportive care, supplimental O2, breathing treatment, Angioedema -Likely secondary to lisinopril (which was recently started) -Discontinued -On IV corticosteroids (dose decreased), antihistamines HTN, Accelerated -ACEI discontinued due to angina edema - will start CCB, hydralazine CHF -Unsure abut diagnosis of CHF -CXR showing cardiomegaly and vascular congestion - On GRACIE inhibitor and HCTZ at home - GRACIE inhibitor discontinued due to angioedema - will follow 2d echo DM type 2 -At home on Metformin - SSI based on accu-checks while he is on corticosteroids DVT/GI prophylaxis Subjective Date of service: 02/20/17 Interval history: Patient seen and examined. Medical records and medication list reviewed. No acute event overnight noted by the RN. Patient extubated this am, BP elevated, Discussed plan of care at bedside with patient's RN. Objective - Exam Narrative Exam: General appearance: Present: no acute distress, obese - EENT Eyes: Present: PERRL - Neck Neck: Present: supple. Absent: enlarged thyroid, masses or JVD - Respiratory Respiratory effort: normal Respiratory: bilateral: CTA, negative: rhonchi, wheezing - Cardiovascular Rhythm: regular Heart Sounds: Present: S1 & S2. Absent: systolic murmur - Extremities Extremities: no ischemia - Abdominal General gastrointestinal: soft, non-tender, non-distended, normal bowel sounds - Psychiatric Psychiatric: not agitated - Neurologic Neurologic: minimally sedated, follows commend - Constitutional Vitals: Vital Signs - 12hr 02/20/17 02/20/17 02/20/17 05:00 05:07 06:01 Temperature Pulse Rate 79 76 110 H Respiratory 20 18 Rate Blood Pressure 177/82 177/82 194/106 O2 Sat by Pulse 86 94 89 Oximetry 02/20/17 02/20/17 02/20/17 07:00 08:00 08:21 Temperature 98.3 F Pulse Rate 70 66 74 Respiratory 21 20 18 Rate Blood Pressure 160/92 157/87 157/87 O2 Sat by Pulse 92 88 98 Oximetry 02/20/17 02/20/17 02/20/17 09:01 10:00 10:01 Temperature Pulse Rate 103 H 74 72 Respiratory 13 18 20 Rate Blood Pressure 189/114 186/96 186/96 O2 Sat by Pulse 86 88 93 Oximetry 02/20/17 02/20/17 02/20/17 10:50 11:00 12:00 Temperature 99.1 F Pulse Rate 78 84 74 Respiratory 16 13 Rate Blood Pressure 186/96 194/83 176/81 O2 Sat by Pulse 95 96 Oximetry 02/20/17 02/20/17 02/20/17 12:59 13:00 13:18 Temperature Pulse Rate 83 93 H Respiratory 18 Rate Blood Pressure 192/91 198/92 O2 Sat by Pulse 94 97 Oximetry 02/20/17 02/20/17 02/20/17 13:19 14:00 15:47 Temperature Pulse Rate Respiratory Rate Blood Pressure 198/92 212/94 O2 Sat by Pulse 96 Oximetry - Labs CBC & Chem 7: 02/20/17 05:00 02/20/17 05:00 Labs: Abnormal lab results 02/19/17 02/19/17 02/19/17 Range/Units 14:23 17:55 21:46 WBC (4.5-11.0) K/mm3 RBC (3.65-5.03) M/mm3 Hgb (11.8-15.2) gm/dl Hct (35.5-45.6) % Seg Neuts % (Manual) (40.0-70.0) % Lymphocytes % (Manual) (13.4-35.0) % Monocytes % (Manual) (0.0-7.3) % Seg Neutrophils # Man (1.8-7.7) K/mm3 Lymphocytes # (Manual) (1.2-5.4) K/mm3 Monocytes # (Manual) (0.0-0.8) K/mm3 POC ABG pH (7.35-7.45) POC ABG pO2 (80-105) Potassium (3.6-5.0) mmol/L Chloride (98-107) mmol/L Glucose (75-100) mg/dL POC Glucose 203 H 191 H 178 H (70-105) 02/20/17 02/20/17 02/20/17 Range/Units 02:53 05:00 05:00 WBC 17.0 H (4.5-11.0) K/mm3 RBC 5.18 H (3.65-5.03) M/mm3 Hgb 16.2 H (11.8-15.2) gm/dl Hct 48.7 H (35.5-45.6) % Seg Neuts % (Manual) 90.0 H (40.0-70.0) % Lymphocytes % (Manual) 1.0 L (13.4-35.0) % Monocytes % (Manual) 9.0 H (0.0-7.3) % Seg Neutrophils # Man 15.3 H (1.8-7.7) K/mm3 Lymphocytes # (Manual) 0.2 L (1.2-5.4) K/mm3 Monocytes # (Manual) 1.5 H (0.0-0.8) K/mm3 POC ABG pH (7.35-7.45) POC ABG pO2 (80-105) Potassium 3.2 L (3.6-5.0) mmol/L Chloride 97.2 L (98-107) mmol/L Glucose 216 H (75-100) mg/dL POC Glucose 202 H (70-105) 02/20/17 02/20/17 Range/Units 05:18 10:13 WBC (4.5-11.0) K/mm3 RBC (3.65-5.03) M/mm3 Hgb (11.8-15.2) gm/dl Hct (35.5-45.6) % Seg Neuts % (Manual) (40.0-70.0) % Lymphocytes % (Manual) (13.4-35.0) % Monocytes % (Manual) (0.0-7.3) % Seg Neutrophils # Man (1.8-7.7) K/mm3 Lymphocytes # (Manual) (1.2-5.4) K/mm3 Monocytes # (Manual) (0.0-0.8) K/mm3 POC ABG pH 7.456 H 7.500 H (7.35-7.45) POC ABG pO2 67 L 74 L (80-105) Potassium (3.6-5.0) mmol/L Chloride (98-107) mmol/L Glucose (75-100) mg/dL POC Glucose (70-105)
[2017-02-20] MEDS: PROCARDIA XL PO SCH (22:47)
[2017-02-21] MEDS: BENADRYL IV SCH ×2 (00:06→06:10)
[2017-02-21] MEDS: APRESOLINE IV PRN ×2 (00:35→13:36)
[2017-02-21] MEDS: NOVOLOG SUB-Q SCH ×5 (02:46→18:32)
[2017-02-21] MEDS: APRESOLINE PO SCH ×2 (06:09→13:31)
[2017-02-21 09:03] LABS: Hemoglobin 17.2 gm/dl (11.8-15.2); Mean Corpuscular HGB Conc 33 % (32-34); Mean Corpuscular Hemoglobin 31 pg (28-32); Mean Corpuscular Volume 95 fl (84-94); Platelet Count 181 K/mm3 (140-440); Red Blood Count 5.48 M/mm3 (3.65-5.03); Red Cell Distribution Width 14.1 % (13.2-15.2)
[2017-02-21 09:18] LABS: Anion Gap 18 mmol/L; Blood Urea Nitrogen 20 mg/dL (9-20); Calcium 9.9 mg/dL (8.4-10.2); Carbon Dioxide 27 mmol/L (22-30); Chloride 97.1 mmol/L (98-107); Glucose 267 mg/dL (75-100); Potassium 3.7 mmol/L (3.6-5.0); Sodium 138 mmol/L (137-145)
[2017-02-21] MEDS: HCTZ PO SCH (09:38)
[2017-02-21] MEDS: PEPCID IV SCH (09:38)
[2017-02-21] MEDS: LOVENOX SUB-Q SCH (09:38)
[2017-02-21] MEDS: PROCARDIA XL PO SCH (09:38)
--- NOTE | 2017-02-21 10:35 | Progress Note ---
Assessment and Plan Acute respiratory failure. GRACIE related angioedema Obesity HTN Rec Can switch to PO Prednisone , 30 mg qd with 5 days taper Switch to [place] oxygen , monitor OOB as tolerated IF he remains OK on nasal cannula, could be transferred later today Subjective Date of service: 02/21/17 Principal diagnosis: angioedema Interval history: OOB taking a bath.No cough or expectoration. No SOB Objective Vital Signs - 12hr 02/20/17 02/20/17 02/21/17 22:35 23:01 00:00 Temperature 98.4 F Pulse Rate 70 89 Pulse Rate [ 83 From Monitor] Pulse Rate [ Right Radial] Respiratory 13 20 Rate Respiratory Rate [Right Leg ] Blood Pressure 173/91 173/91 O2 Sat by Pulse 95 98 Oximetry 02/21/17 02/21/17 02/21/17 00:01 00:03 00:35 Temperature Pulse Rate 85 102 H Pulse Rate [ From Monitor] Pulse Rate [ Right Radial] Respiratory 19 Rate Respiratory Rate [Right Leg ] Blood Pressure 180/83 180/83 O2 Sat by Pulse 87 97 Oximetry 02/21/17 02/21/17 02/21/17 00:55 01:00 01:01 Temperature Pulse Rate 104 H 86 85 Pulse Rate [ From Monitor] Pulse Rate [ Right Radial] Respiratory 20 16 13 Rate Respiratory Rate [Right Leg ] Blood Pressure 180/83 160/77 160/77 O2 Sat by Pulse 89 94 93 Oximetry 02/21/17 02/21/17 02/21/17 02:00 03:00 04:00 Temperature 98.2 F Pulse Rate 70 69 71 Pulse Rate [ From Monitor] Pulse Rate [ 71 Right Radial] Respiratory 16 14 15 Rate Respiratory Rate [Right Leg ] Blood Pressure 157/79 153/82 156/77 O2 Sat by Pulse 98 98 76 L Oximetry 02/21/17 02/21/17 02/21/17 05:00 06:00 06:09 Temperature Pulse Rate 70 70 72 Pulse Rate [ From Monitor] Pulse Rate [ Right Radial] Respiratory 13 13 Rate Respiratory Rate [Right Leg ] Blood Pressure 150/86 163/83 163/83 O2 Sat by Pulse 100 91 Oximetry 02/21/17 02/21/17 02/21/17 07:00 08:00 09:01 Temperature 98 F Pulse Rate 67 72 72 Pulse Rate [ From Monitor] Pulse Rate [ Right Radial] Respiratory 15 14 12 Rate Respiratory Rate [Right Leg ] Blood Pressure 167/94 177/96 177/96 O2 Sat by Pulse 92 92 92 Oximetry 02/21/17 02/21/17 02/21/17 09:24 09:41 10:00 Temperature Pulse Rate 72 70 Pulse Rate [ From Monitor] Pulse Rate [ Right Radial] Respiratory 16 Rate Respiratory 20 Rate [Right Leg ] Blood Pressure 156/81 O2 Sat by Pulse 94 94 Oximetry Constitutional: no acute distress, alert Eyes: non-icteric ENT: other (no stridor) Neck: supple Effort: normal Ascultation: Bilateral: clear Percussion: Bilateral: not dull Cardiovascular: regular rate and rhythm Gastrointestinal: normoactive bowel sounds, soft, non-tender Extremities: no cyanosis, no edema, pink and warm, pulses normal Neurologic: normal mental status, non-focal exam Psychiatric: mood appropriate, affect normal CBC and BMP: 02/21/17 08:50 02/21/17 08:50 ABG, PT/INR, D-dimer: ABG POC ABG pH 7.500 (7.35-7.45) H 02/20/17 10:13 POC ABG pCO2 40.8 (35-45) 02/20/17 10:13 POC ABG pO2 74 (80-105) L 02/20/17 10:13 POC ABG HCO3 31.9 02/20/17 10:13 POC ABG Total CO2 33 02/20/17 10:13 POC ABG O2 Sat 96 02/20/17 10:13 Abnormal lab findings: Abnormal Labs 02/16/17 02/17/17 02/17/17 22:16 07:35 12:05 WBC RBC Hgb Hct MCV Seg Neuts % (Manual) Lymphocytes % (Manual) Monocytes % (Manual) Seg Neutrophils # Man Lymphocytes # (Manual) Monocytes # (Manual) POC ABG pH 7.312 L POC ABG pCO2 46.8 H POC ABG pO2 118 H Potassium Chloride Glucose POC Glucose 187 H 167 H 02/17/17 02/17/17 02/18/17 15:27 22:41 02:37 WBC RBC Hgb Hct MCV Seg Neuts % (Manual) Lymphocytes % (Manual) Monocytes % (Manual) Seg Neutrophils # Man Lymphocytes # (Manual) Monocytes # (Manual) POC ABG pH POC ABG pCO2 POC ABG pO2 Potassium Chloride Glucose POC Glucose 184 H 187 H 156 H 02/18/17 02/18/17 02/18/17 04:35 05:41 07:32 WBC RBC Hgb Hct MCV Seg Neuts % (Manual) Lymphocytes % (Manual) Monocytes % (Manual) Seg Neutrophils # Man Lymphocytes # (Manual) Monocytes # (Manual) POC ABG pH POC ABG pCO2 POC ABG pO2 108 H Potassium Chloride Glucose POC Glucose 144 H 149 H 02/18/17 02/18/17 02/18/17 11:56 18:01 21:43 WBC RBC Hgb Hct MCV Seg Neuts % (Manual) Lymphocytes % (Manual) Monocytes % (Manual) Seg Neutrophils # Man Lymphocytes # (Manual) Monocytes # (Manual) POC ABG pH POC ABG pCO2 POC ABG pO2 Potassium Chloride Glucose POC Glucose 114 H 184 H 179 H 02/19/17 02/19/17 02/19/17 02:19 04:47 05:28 WBC RBC Hgb Hct MCV Seg Neuts % (Manual) Lymphocytes % (Manual) Monocytes % (Manual) Seg Neutrophils # Man Lymphocytes # (Manual) Monocytes # (Manual) POC ABG pH 7.499 H POC ABG pCO2 34.5 L POC ABG pO2 115 H Potassium Chloride Glucose POC Glucose 177 H 142 H 02/19/17 02/19/17 02/19/17 08:37 14:23 17:55 WBC RBC Hgb Hct MCV Seg Neuts % (Manual) Lymphocytes % (Manual) Monocytes % (Manual) Seg Neutrophils # Man Lymphocytes # (Manual) Monocytes # (Manual) POC ABG pH POC ABG pCO2 POC ABG pO2 Potassium Chloride Glucose POC Glucose 149 H 203 H 191 H 02/19/17 02/20/17 02/20/17 21:46 02:53 05:00 WBC 17.0 H RBC 5.18 H Hgb 16.2 H Hct 48.7 H MCV Seg Neuts % (Manual) 90.0 H Lymphocytes % (Manual) 1.0 L Monocytes % (Manual) 9.0 H Seg Neutrophils # Man 15.3 H Lymphocytes # (Manual) 0.2 L Monocytes # (Manual) 1.5 H POC ABG pH POC ABG pCO2 POC ABG pO2 Potassium Chloride Glucose POC Glucose 178 H 202 H 02/20/17 02/20/17 02/20/17 05:00 05:18 07:14 WBC RBC Hgb Hct MCV Seg Neuts % (Manual) Lymphocytes % (Manual) Monocytes % (Manual) Seg Neutrophils # Man Lymphocytes # (Manual) Monocytes # (Manual) POC ABG pH 7.456 H POC ABG pCO2 POC ABG pO2 67 L Potassium 3.2 L Chloride 97.2 L Glucose 216 H POC Glucose 180 H 02/20/17 02/20/17 02/20/17 10:13 10:35 13:40 WBC RBC Hgb Hct MCV Seg Neuts % (Manual) Lymphocytes % (Manual) Monocytes % (Manual) Seg Neutrophils # Man Lymphocytes # (Manual) Monocytes # (Manual) POC ABG pH 7.500 H POC ABG pCO2 POC ABG pO2 74 L Potassium Chloride Glucose POC Glucose 211 H 212 H 02/20/17 02/20/17 02/21/17 17:31 22:31 06:06 WBC RBC Hgb Hct MCV Seg Neuts % (Manual) Lymphocytes % (Manual) Monocytes % (Manual) Seg Neutrophils # Man Lymphocytes # (Manual) Monocytes # (Manual) POC ABG pH POC ABG pCO2 POC ABG pO2 Potassium Chloride Glucose POC Glucose 184 H 221 H 244 H 02/21/17 02/21/17 08:50 08:50 WBC 16.0 H RBC 5.48 H Hgb 17.2 H Hct 52.0 H MCV 95 H Seg Neuts % (Manual) Lymphocytes % (Manual) Monocytes % (Manual) Seg Neutrophils # Man Lymphocytes # (Manual) Monocytes # (Manual) POC ABG pH POC ABG pCO2 POC ABG pO2 Potassium Chloride 97.1 L Glucose 267 H POC Glucose Chest x-ray: report reviewed
[2017-02-21 11:36] LABS: Blastocytes % (Manual) 0 %; Eosinophils % (Manual) 0 % (0.0-4.3)
[2017-02-21 11:37] LABS: Diff Status Complete; RBC Morphology Normal
[2017-02-21] MEDS: GLUCOPHAGE PO SCH ×2 (13:35→17:16)
--- NOTE | 2017-02-21 15:58 | Progress Note ---
Assessment and Plan 66 YO Male with HTN, CHF, DM, Nicotine Dependence, GERD presents to ED for experiencing swelling of the tongue and throat that began about 2 hours prior to presentation. Pt seen and evaluated in ED and was found to be unable to swallow liquids or control his secretions and unable to protect his airway. Pt intubated due to pending airway compromise. He is extubated on 02/20/17 Acute respiratory failure - Resolved, Due to angioedema and inability to protect the airway - Pulmonary following, extubated - cont supportive care, supplimental O2, breathing treatment, Angioedema -Likely secondary to lisinopril (which was recently started) -Discontinued -On IV corticosteroids (dose decreased), antihistamines HTN, Accelerated -ACEI discontinued due to angina edema - will cont CCB, hydralazine CHF -Unsure about diagnosis of CHF -CXR showing cardiomegaly and vascular congestion - On GRACIE inhibitor and HCTZ at home - GRACIE inhibitor discontinued due to angioedema - 2d echo showed preserved EF DM type 2 -At home on Metformin - SSI based on accu-checks while he is on corticosteroids Leukocytosis, likely due to steroid, cont to monitor DVT/GI prophylaxis Subjective Principal diagnosis: angioedema Interval history: Patient seen and examined. Medical records and medication list reviewed. No acute event overnight noted by the RN. Patient BP still elevated, passed swallow study, transfer to telemetry Discussed plan of care at bedside with patient's RN. Objective - Exam Narrative Exam: General appearance: Present: no acute distress, obese - EENT Eyes: Present: PERRL - Neck Neck: Present: supple. Absent: enlarged thyroid, masses or JVD - Respiratory Respiratory effort: normal Respiratory: bilateral: CTA, negative: rhonchi, wheezing - Cardiovascular Rhythm: regular Heart Sounds: Present: S1 & S2. Absent: systolic murmur - Extremities Extremities: no ischemia - Abdominal General gastrointestinal: soft, non-tender, non-distended, normal bowel sounds - Psychiatric Psychiatric: not agitated - Neurologic Neurologic: follows commend - Constitutional Vitals: Vital Signs - 12hr 02/21/17 02/21/17 02/21/17 04:00 05:00 06:00 Temperature 98.2 F Pulse Rate 71 70 70 Pulse Rate [ 71 Right Radial] Respiratory 15 13 13 Rate Respiratory Rate [Right Leg ] Blood Pressure 156/77 150/86 163/83 O2 Sat by Pulse 76 L 100 91 Oximetry 02/21/17 02/21/17 02/21/17 06:09 07:00 08:00 Temperature 98 F Pulse Rate 72 67 72 Pulse Rate [ Right Radial] Respiratory 15 14 Rate Respiratory Rate [Right Leg ] Blood Pressure 163/83 167/94 177/96 O2 Sat by Pulse 92 92 Oximetry 02/21/17 02/21/17 02/21/17 09:01 09:24 09:41 Temperature Pulse Rate 72 72 Pulse Rate [ Right Radial] Respiratory 12 Rate Respiratory Rate [Right Leg ] Blood Pressure 177/96 O2 Sat by Pulse 92 94 Oximetry 02/21/17 02/21/17 02/21/17 10:00 12:00 13:31 Temperature 98.3 F Pulse Rate 70 95 H Pulse Rate [ Right Radial] Respiratory 16 Rate Respiratory 20 Rate [Right Leg ] Blood Pressure 156/81 164/96 O2 Sat by Pulse 94 Oximetry - Labs CBC & Chem 7: 02/21/17 08:50 02/21/17 08:50 Labs: Abnormal lab results 02/20/17 02/20/17 02/20/17 Range/Units 07:14 10:35 13:40 WBC (4.5-11.0) K/mm3 RBC (3.65-5.03) M/mm3 Hgb (11.8-15.2) gm/dl Hct (35.5-45.6) % MCV (84-94) fl Lymphocytes % (Manual) (13.4-35.0) % Seg Neutrophils # Man (1.8-7.7) K/mm3 Lymphocytes # (Manual) (1.2-5.4) K/mm3 Chloride (98-107) mmol/L Glucose (75-100) mg/dL POC Glucose 180 H 211 H 212 H (70-105) 02/20/17 02/20/17 02/21/17 Range/Units 17:31 22:31 06:06 WBC (4.5-11.0) K/mm3 RBC (3.65-5.03) M/mm3 Hgb (11.8-15.2) gm/dl Hct (35.5-45.6) % MCV (84-94) fl Lymphocytes % (Manual) (13.4-35.0) % Seg Neutrophils # Man (1.8-7.7) K/mm3 Lymphocytes # (Manual) (1.2-5.4) K/mm3 Chloride (98-107) mmol/L Glucose (75-100) mg/dL POC Glucose 184 H 221 H 244 H (70-105) 02/21/17 02/21/17 Range/Units 08:50 08:50 WBC 16.0 H (4.5-11.0) K/mm3 RBC 5.48 H (3.65-5.03) M/mm3 Hgb 17.2 H (11.8-15.2) gm/dl Hct 52.0 H (35.5-45.6) % MCV 95 H (84-94) fl Lymphocytes % (Manual) 2.0 L (13.4-35.0) % Seg Neutrophils # Man 15.5 H (1.8-7.7) K/mm3 Lymphocytes # (Manual) 0.3 L (1.2-5.4) K/mm3 Chloride 97.1 L (98-107) mmol/L Glucose 267 H (75-100) mg/dL POC Glucose (70-105)
[2017-02-22] MEDS: APRESOLINE PO SCH ×3 (00:51→14:13)
[2017-02-22] MEDS: PEPCID PO SCH ×2 (00:51→10:37)
[2017-02-22] MEDS: PROCARDIA XL PO SCH ×2 (00:59→10:37)
[2017-02-22] MEDS: NOVOLOG SUB-Q SCH ×5 (02:13→14:14)
[2017-02-22 06:21] VITALS: BP 142/80
[2017-02-22] MEDS: GLUCOPHAGE PO SCH (08:10)
--- NOTE | 2017-02-22 09:24 | Discharge Summary ---
Providers - Providers Date of Admission: 02/16/17 18:46 Date of discharge: 02/22/17 Attending physician: ADAN GASCA 02/17/17 14:55 Consult to Dietitian/Nutrition [CONS] Routine Physician Instructions: Reason For Exam: Reason for Consult: Pt needs oral supplement 02/21/17 09:28 Speech Therapy Evaluation and Treat [CONS] Stat Reason For Exam: post extubation 02/22/17 09:08 Physical Therapy Evaluation and Treat [CONS] Routine Comment: Reason For Exam: ambulation Primary care physician: [employer] Hospitalization Condition: Serious Hospital course: 66 YO Male with HTN, CHF, DM, Nicotine Dependence, GERD presents to ED for experiencing swelling of the tongue and throat that began about 2 hours prior to presentation. Pt seen and evaluated in ED and was found to be unable to swallow liquids or control his secretions and unable to protect his airway. Patient was intubated due to pending airway compromise. He is extubated on 02/20. Discharge Diagnosis and management: Acute respiratory failure - Resolved, Due to angioedema and inability to protect the airway - Pulmonary was following, extubated on 02/20/17 - continued on supportive care, supplimental O2, breathing treatment following extubation Angioedema -Likely secondary to lisinopril (which was recently started), Discontinued -placed On IV corticosteroids (dose decreased), antihistamines -Resolved HTN, Accelerated -ACEI discontinued due to angina edema - BP was better controlled with CCB, hydralazine CHF rulled out - Unsure about diagnosis of CHF - CXR showing cardiomegaly and vascular congestion - Was On GRACIE inhibitor and HCTZ at home - GRACIE inhibitor discontinued due to angioedema - 2d echo obtained and showed preserved EF DM type 2 -At home on Metformin - SSI based on accu-checks while he is on corticosteroids Leukocytosis, likely due to steroid, cont to monitor Disposition: DISCHARGED TO HOME OR SELFCARE Time spent for discharge: 32 minutes Core Measure Documentation - Palliative Care Palliative Care/ Comfort Measures: Not Applicable - Core Measures Any of the following diagnoses?: none Exam - Physical Exam Narrative exam: General appearance: Present: no acute distress, obese - EENT Eyes: Present: PERRL - Neck Neck: Present: supple. Absent: enlarged thyroid, masses or JVD - Respiratory Respiratory effort: normal Respiratory: bilateral: CTA, negative: rhonchi, wheezing - Cardiovascular Rhythm: regular Heart Sounds: Present: S1 & S2. Absent: systolic murmur - Extremities Extremities: no ischemia - Abdominal General gastrointestinal: soft, non-tender, non-distended, normal bowel sounds - Psychiatric Psychiatric: not agitated - Neurologic Neurologic: follows commend - Constitutional Vitals: Temp Pulse Resp BP Pulse Ox 98.3 F 88 18 142/80 95 02/21/17 12:00 02/22/17 06:20 02/21/17 16:01 02/22/17 06:20 02/21/17 21:25 Plan Activity: advance as tolerated Weight Bearing Status: Weight Bear as Tolerated Diet: low cholesterol, low salt Follow up with: PRIMARY CARE, [Primary Care Provider] - 3-5 Days Prescriptions: Aspirin EC [Aspirin Enteric Coated TAB] 81 mg PO QDAY #30 tablet. hydrALAZINE [Apresoline TAB] 50 mg PO Q8HR #90 tablet Hydrochlorothiazide [HCTZ] 25 mg PO QDAY #30 tablet metFORMIN [Glucophage] 500 mg PO BIDDIAB #60 tablet NIFEdipine XL [Procardia Xl] 60 mg PO Q12HR #60 tablet predniSONE [Deltasone] 20 mg PO QDAY #5 tab
[2017-02-22 09:55] LABS: Hematocrit 51.2 % (35.5-45.6); Hemoglobin 16.7 gm/dl (11.8-15.2); Mean Corpuscular HGB Conc 33 % (32-34); Mean Corpuscular Hemoglobin 31 pg (28-32); Mean Corpuscular Volume 95 fl (84-94); Platelet Count 174 K/mm3 (140-440); Red Cell Distribution Width 14.1 % (13.2-15.2); White Blood Count 15.8 K/mm3 (4.5-11.0)
[2017-02-22] MEDS: HCTZ PO SCH (10:37)
[2017-02-22] MEDS: LOVENOX SUB-Q SCH (10:39)
[2017-02-22 11:20] LABS: Basophils % (Manual) 0 % (0.0-1.8); Blastocytes % (Manual) 0 %; Diff Status Complete; Eosinophils % (Manual) 0 % (0.0-4.3); Platelet Estimate Cons; RBC Morphology Normal
--- NOTE | 2017-02-22 13:52 | Progress Note ---
Assessment and Plan Acute respiratory failure.Resolved GRACIE related angioedema.Resolved Obesity HTN Rec Can switch to PO Prednisone , 30 mg qd with 5 days taper OOB as tolerated Call if any other respiratory problems. Will sign off Subjective Date of service: 02/22/17 Principal diagnosis: angioedema,respiratory failure Interval history: No cough . No SOB.No dysphagia Objective Vital Signs - 12hr 02/22/17 02/22/17 06:20 10:00 Pulse Rate 88 Blood Pressure 142/80 O2 Sat by Pulse 95 Oximetry Constitutional: no acute distress, alert Eyes: non-icteric ENT: other (no stridor) Neck: supple Effort: normal Ascultation: Bilateral: clear Percussion: Bilateral: not dull Cardiovascular: regular rate and rhythm Gastrointestinal: normoactive bowel sounds, soft, non-tender Extremities: no cyanosis, no edema, pink and warm, pulses normal Neurologic: normal mental status, non-focal exam Psychiatric: mood appropriate, affect normal CBC and BMP: 02/22/17 09:14 02/21/17 08:50 ABG, PT/INR, D-dimer: ABG POC ABG pH 7.500 (7.35-7.45) H 02/20/17 10:13 POC ABG pCO2 40.8 (35-45) 02/20/17 10:13 POC ABG pO2 74 (80-105) L 02/20/17 10:13 POC ABG HCO3 31.9 02/20/17 10:13 POC ABG Total CO2 33 02/20/17 10:13 POC ABG O2 Sat 96 02/20/17 10:13 Abnormal lab findings: Abnormal Labs 02/16/17 02/17/17 02/17/17 22:16 07:35 12:05 WBC RBC Hgb Hct MCV Seg Neuts % (Manual) Lymphocytes % (Manual) Monocytes % (Manual) Seg Neutrophils # Man Lymphocytes # (Manual) Monocytes # (Manual) POC ABG pH 7.312 L POC ABG pCO2 46.8 H POC ABG pO2 118 H Potassium Chloride Glucose POC Glucose 187 H 167 H 02/17/17 02/17/17 02/18/17 15:27 22:41 02:37 WBC RBC Hgb Hct MCV Seg Neuts % (Manual) Lymphocytes % (Manual) Monocytes % (Manual) Seg Neutrophils # Man Lymphocytes # (Manual) Monocytes # (Manual) POC ABG pH POC ABG pCO2 POC ABG pO2 Potassium Chloride Glucose POC Glucose 184 H 187 H 156 H 02/18/17 02/18/17 02/18/17 04:35 05:41 07:32 WBC RBC Hgb Hct MCV Seg Neuts % (Manual) Lymphocytes % (Manual) Monocytes % (Manual) Seg Neutrophils # Man Lymphocytes # (Manual) Monocytes # (Manual) POC ABG pH POC ABG pCO2 POC ABG pO2 108 H Potassium Chloride Glucose POC Glucose 144 H 149 H 02/18/17 02/18/17 02/18/17 11:56 18:01 21:43 WBC RBC Hgb Hct MCV Seg Neuts % (Manual) Lymphocytes % (Manual) Monocytes % (Manual) Seg Neutrophils # Man Lymphocytes # (Manual) Monocytes # (Manual) POC ABG pH POC ABG pCO2 POC ABG pO2 Potassium Chloride Glucose POC Glucose 114 H 184 H 179 H 02/19/17 02/19/17 02/19/17 02:19 04:47 05:28 WBC RBC Hgb Hct MCV Seg Neuts % (Manual) Lymphocytes % (Manual) Monocytes % (Manual) Seg Neutrophils # Man Lymphocytes # (Manual) Monocytes # (Manual) POC ABG pH 7.499 H POC ABG pCO2 34.5 L POC ABG pO2 115 H Potassium Chloride Glucose POC Glucose 177 H 142 H 02/19/17 02/19/17 02/19/17 08:37 14:23 17:55 WBC RBC Hgb Hct MCV Seg Neuts % (Manual) Lymphocytes % (Manual) Monocytes % (Manual) Seg Neutrophils # Man Lymphocytes # (Manual) Monocytes # (Manual) POC ABG pH POC ABG pCO2 POC ABG pO2 Potassium Chloride Glucose POC Glucose 149 H 203 H 191 H 02/19/17 02/20/17 02/20/17 21:46 02:53 05:00 WBC 17.0 H RBC 5.18 H Hgb 16.2 H Hct 48.7 H MCV Seg Neuts % (Manual) 90.0 H Lymphocytes % (Manual) 1.0 L Monocytes % (Manual) 9.0 H Seg Neutrophils # Man 15.3 H Lymphocytes # (Manual) 0.2 L Monocytes # (Manual) 1.5 H POC ABG pH POC ABG pCO2 POC ABG pO2 Potassium Chloride Glucose POC Glucose 178 H 202 H 02/20/17 02/20/17 02/20/17 05:00 05:18 07:14 WBC RBC Hgb Hct MCV Seg Neuts % (Manual) Lymphocytes % (Manual) Monocytes % (Manual) Seg Neutrophils # Man Lymphocytes # (Manual) Monocytes # (Manual) POC ABG pH 7.456 H POC ABG pCO2 POC ABG pO2 67 L Potassium 3.2 L Chloride 97.2 L Glucose 216 H POC Glucose 180 H 02/20/17 02/20/17 02/20/17 10:13 10:35 13:40 WBC RBC Hgb Hct MCV Seg Neuts % (Manual) Lymphocytes % (Manual) Monocytes % (Manual) Seg Neutrophils # Man Lymphocytes # (Manual) Monocytes # (Manual) POC ABG pH 7.500 H POC ABG pCO2 POC ABG pO2 74 L Potassium Chloride Glucose POC Glucose 211 H 212 H 02/20/17 02/20/17 02/21/17 17:31 22:31 06:06 WBC RBC Hgb Hct MCV Seg Neuts % (Manual) Lymphocytes % (Manual) Monocytes % (Manual) Seg Neutrophils # Man Lymphocytes # (Manual) Monocytes # (Manual) POC ABG pH POC ABG pCO2 POC ABG pO2 Potassium Chloride Glucose POC Glucose 184 H 221 H 244 H 02/21/17 02/21/17 02/21/17 08:50 08:50 10:12 WBC 16.0 H RBC 5.48 H Hgb 17.2 H Hct 52.0 H MCV 95 H Seg Neuts % (Manual) Lymphocytes % (Manual) 2.0 L Monocytes % (Manual) Seg Neutrophils # Man 15.5 H Lymphocytes # (Manual) 0.3 L Monocytes # (Manual) POC ABG pH POC ABG pCO2 POC ABG pO2 Potassium Chloride 97.1 L Glucose 267 H POC Glucose 245 H 02/21/17 02/21/17 02/21/17 15:26 17:58 19:27 WBC RBC Hgb Hct MCV Seg Neuts % (Manual) Lymphocytes % (Manual) Monocytes % (Manual) Seg Neutrophils # Man Lymphocytes # (Manual) Monocytes # (Manual) POC ABG pH POC ABG pCO2 POC ABG pO2 Potassium Chloride Glucose POC Glucose 269 H 256 H 232 H 02/22/17 02/22/17 02/22/17 02:08 06:08 08:21 WBC RBC Hgb Hct MCV Seg Neuts % (Manual) Lymphocytes % (Manual) Monocytes % (Manual) Seg Neutrophils # Man Lymphocytes # (Manual) Monocytes # (Manual) POC ABG pH POC ABG pCO2 POC ABG pO2 Potassium Chloride Glucose POC Glucose 194 H 190 H 261 H 02/22/17 09:14 WBC 15.8 H RBC 5.40 H Hgb 16.7 H Hct 51.2 H MCV 95 H Seg Neuts % (Manual) 94.0 H Lymphocytes % (Manual) 2.0 L Monocytes % (Manual) Seg Neutrophils # Man 14.9 H Lymphocytes # (Manual) 0.3 L Monocytes # (Manual) POC ABG pH POC ABG pCO2 POC ABG pO2 Potassium Chloride Glucose POC Glucose
== END 2017-02-22 15:40 | disposition home health service (06) | DRG 207 ==
LOC: ED 16:07 → CC1 18:46 → CC2 02-21 17:08
PROVIDERS: ADMIT Internal Medicine; ATTEND Internal Medicine
PROC: 5A1955Z Respiratory Ventilation, Greater than 96 Consecutive Hours (ICD-10-PCS; principal; 2017-02-16)
PROC: 0BH17EZ Insertion of Endotracheal Airway into Trachea, Via Natural or Artificial Opening (ICD-10-PCS; 2017-02-16)
PROC: 4A033R1 Measurement of Arterial Saturation, Peripheral, Percutaneous Approach (ICD-10-PCS; 2017-02-16)
DX: J96.00 Acute respiratory failure, unspecified whether with hypoxia or hypercapnia (principal); T78.3XXA Angioneurotic edema, initial encounter; I11.0 Hypertensive heart disease with heart failure; E11.9 Type 2 diabetes mellitus without complications; F17.200 Nicotine dependence, unspecified, uncomplicated; K21.9 Gastro-esophageal reflux disease without esophagitis; E66.9 Obesity, unspecified; T46.4X5A Adverse effect of angiotensin-converting-enzyme inhibitors, initial encounter; D72.829 Elevated white blood cell count, unspecified; T38.0X5A Adverse effect of glucocorticoids and synthetic analogues, initial encounter; Y92.89 Other specified places as the place of occurrence of the external cause; Z68.36 Body mass index [BMI] 36.0-36.9, adult; Z88.8 Allergy status to other drugs, medicaments and biological substances; Z83.3 Family history of diabetes mellitus; Z82.49 Family history of ischemic heart disease and other diseases of the circulatory system
CPT/HCPCS: 36415; 36600; 71010; 74000; 80048; 82803; 82962; 84484; 85007; 85025; 87205; 93005; 93010; 93306; 94002; 94003; 94760; 96372; 96374; 99406; G8996-GN; G8997-GN; G8998-GN; J0171; J0330; J0360; J1200; J1650; J1815; J2250; J2704; J2920; J2930; J3010

== ENCOUNTER 2017-04-27 13:07 | Outpatient (CLI) | payer MEDICARE ==
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
== END 2017-04-27 13:08 | disposition home or self-care (01) ==
LOC: XRAY 13:07
PROVIDERS: ATTEND Nurse Practitioner
DX: M17.12 Unilateral primary osteoarthritis, left knee (principal); M25.862 Other specified joint disorders, left knee; S82.002D Unspecified fracture of left patella, subsequent encounter for closed fracture with routine healing; I11.0 Hypertensive heart disease with heart failure; I50.9 Heart failure, unspecified; J45.909 Unspecified asthma, uncomplicated; I25.10 Atherosclerotic heart disease of native coronary artery without angina pectoris; F17.200 Nicotine dependence, unspecified, uncomplicated; X58.XXXD Exposure to other specified factors, subsequent encounter

== ENCOUNTER 2020-06-24 18:08 | Inpatient (IN) | payer MEDICARE ==
[2020-06-24] MEDS ORDERED: FUROSEMIDE 40 MG/4 ML INJ IV ONE (18:50)
--- NOTE | 2020-06-24 18:59 | Emergency Department Report ---
ED General Adult HPI - General Chief complaint: Dyspnea/Respdistress Stated complaint: RIANA PNEUMONIA/HEART PROBLEM PUI?: Yes Time Seen by Provider: 06/24/20 18:44 Source: EMS Mode of arrival: Stretcher Limitations: Physical Limitation - History of Present Illness Initial comments: This is a 69-year-old male with history of hypertension, CHF, diabetes mellitus, GERD, COPD, dementia, pulmonary hypertension who presents from urgent care [facility] on [address] PCP referred patient to emergency department for acute respiratory failure bilateral pneumonia CHF. Upon patient's arrival to the medical office pulse oximetry 89% hypoxic. Patient received ceftriaxone, dexamethasone, furosemide at the medical clinic. Oxygen saturations now 97% on 2 LPM nasal cannula Patient went to the clinic today for generalized malaise, shortness of breath and mild nausea. He also has had lower extremity swelling bilateral which is improved. According to PCP documentation, patient had increasing shortness of breath for the past 2 weeks. He also has had a productive cough. -: Gradual, week(s) (2) Severity scale (0 -10): 0 Consistency: constant Improves with: none Worsens with: none Associated Symptoms: cough, shortness of breath - Related Data Home Medications Medication Instructions Recorded Confirmed Last Taken Pantoprazole Sodium 40 tab PO ONCE 02/16/17 06/25/20 Unknown Previous Rx's Medication Instructions Recorded Last Taken Type Aspirin EC [Halfprin EC] 81 mg PO QDAY #30 tablet. 02/22/17 Unknown Rx NIFEdipine XL [Procardia Xl] 60 mg PO Q12HR #60 tablet 02/22/17 Unknown Rx hydrALAZINE [Apresoline TAB] 50 mg PO Q8HR #90 tablet 02/22/17 Unknown Rx hydroCHLOROthiazide [HCTZ] 25 mg PO QDAY #30 tablet 02/22/17 Unknown Rx metFORMIN [Glucophage] 500 mg PO BIDDIAB #60 tablet 02/22/17 Unknown Rx predniSONE [Deltasone] 20 mg PO QDAY #5 tab 02/23/17 Unknown Rx Allergies Allergy/AdvReac Type Severity Reaction Status Date / Time lisinopril Allergy Angioedema Verified 02/17/17 12:30 ED Review of Systems ROS: Stated complaint: RIANA PNEUMONIA/HEART PROBLEM Other details as noted in HPI Comment: All other systems reviewed and negative Constitutional: malaise Respiratory: cough, shortness of breath Cardiovascular: denies: chest pain Gastrointestinal: denies: abdominal pain, nausea, vomiting ED Past Medical Hx - Past Medical History Previous Medical History?: Yes Hx Hypertension: Yes Hx Heart Attack/AMI: Yes Hx Congestive Heart Failure: Yes Hx Diabetes: Yes Hx Arthritis: Yes Hx Asthma: Yes Hx COPD: Yes Hx HIV: No Additional medical history: Diabetic ulcers - Surgical History Additional Surgical History: "side surgery for infection" - Social History Smoking Status: Former Smoker - Medications Home Medications: Home Medications Medication Instructions Recorded Confirmed Last Taken Type Pantoprazole Sodium 40 tab PO ONCE 02/16/17 06/25/20 Unknown History Aspirin EC [Halfprin EC] 81 mg PO QDAY #30 tablet. 02/22/17 06/25/20 Unknown R x NIFEdipine XL [Procardia Xl] 60 mg PO Q12HR #60 tablet 02/22/17 06/25/20 Unknown Rx hydrALAZINE [Apresoline TAB] 50 mg PO Q8HR #90 tablet 02/22/17 06/25/20 Unknown Rx hydroCHLOROthiazide [HCTZ] 25 mg PO QDAY #30 tablet 02/22/17 06/25/20 Unknown Rx metFORMIN [Glucophage] 500 mg PO BIDDIAB #60 tablet 02/22/17 06/25/20 Unknown Rx predniSONE [Deltasone] 20 mg PO QDAY #5 tab 02/23/17 06/25/20 Unknown Rx ED Physical Exam - General Limitations: Physical Limitation General appearance: alert, other (Speaking sentences with marked effort) - Head Head exam: Present: atraumatic, normocephalic - Eye Eye exam: Present: normal appearance - ENT ENT exam: Present: mucous membranes moist - Neck Neck exam: Present: normal inspection, full ROM - Respiratory Respiratory exam: Present: rales, decreased breath sounds, other (Mild work of breathing). Absent: wheezes, chest wall tenderness, accessory muscle use - Cardiovascular Cardiovascular Exam: Present: regular rate, normal rhythm, normal heart sounds. Absent: systolic murmur, diastolic murmur, rubs, gallop - GI/Abdominal GI/Abdominal exam: Present: soft, normal bowel sounds. Absent: distended, tenderness, guarding, rebound - Rectal Rectal exam: Present: deferred - Extremities Exam Extremities exam: Present: pedal edema, other (Venous stasis changes: Hyperpigmentation lower extremities, nonpitting edema in the lower extremities) - Neurological Exam Neurological exam: Present: alert, oriented X3 - Psychiatric Psychiatric exam: Present: normal affect, normal mood - Skin Skin exam: Present: warm, dry, intact, normal color. Absent: rash ED Course Vital Signs 06/24/20 06/24/20 06/24/20 18:28 18:34 20:34 Temperature 99.2 F Pulse Rate 96 H 76 Respiratory 20 20 25 H Rate Blood Pressure 132/71 Blood Pressure 132/71 [Right] O2 Sat by Pulse 90 91 Oximetry 06/24/20 06/24/20 06/24/20 21:01 21:05 21:31 Temperature Pulse Rate 79 77 73 Respiratory 29 H 26 H 26 H Rate Blood Pressure 137/83 137/83 137/83 Blood Pressure [Right] O2 Sat by Pulse 92 91 91 Oximetry 06/24/20 06/24/20 06/24/20 22:01 22:32 23:01 Temperature 98.9 F Pulse Rate 71 76 Respiratory 24 29 H Rate Blood Pressure 137/83 140/88 Blood Pressure [Right] O2 Sat by Pulse 90 90 Oximetry 06/25/20 06/25/20 06/25/20 00:01 01:01 02:01 Temperature Pulse Rate 74 77 74 Respiratory 22 22 26 H Rate Blood Pressure 140/88 140/88 140/88 Blood Pressure [Right] O2 Sat by Pulse 90 90 90 Oximetry 06/25/20 06/25/20 06/25/20 03:01 04:01 04:58 Temperature 97.8 F Pulse Rate 71 73 Respiratory 24 22 Rate Blood Pressure 141/83 154/83 Blood Pressure [Right] O2 Sat by Pulse 90 91 Oximetry 06/25/20 06/25/20 06/25/20 05:01 06:01 07:01 Temperature Pulse Rate 70 67 65 Respiratory 23 28 H 22 Rate Blood Pressure 122/65 133/86 140/80 Blood Pressure [Right] O2 Sat by Pulse 89 92 89 Oximetry 06/25/20 08:01 Temperature Pulse Rate 74 Respiratory 21 Rate Blood Pressure 154/95 Blood Pressure [Right] O2 Sat by Pulse 87 Oximetry ED Medical Decision Making - Lab Data Result diagrams: 06/25/20 03:07 06/25/20 03:07 - EKG Data -: EKG Interpreted by Al EKG shows normal: sinus rhythm, axis, QRS complexes, ST-T waves Rate: normal - EKG Data 06/24/20 19:36 Prolonged QTC 516 milliseconds EKG obtained 1930 - Radiology Data Radiology results: report reviewed, image reviewed - Medical Decision Making Acute respiratory failure hypoxia: I suspect COVID-19 pneumonia as the etiology of hypoxia, shortness of breath. Patient has diffuse diffuse patchy infiltrates in the periphery of the lungs on chest radiographs strongly suggestive of atypical pneumonia. Differential diagnosis also includes CHF. Appropriate droplet contact precautions instituted. Patient received antibio tics prior to arrival as well as IV steroids and Diuretic prior to arrival in the office of his [facility] PCP. Patient received additional furosemide here in the emergency department. Admitted to the hospital service for further treatment and evaluation. Critical care attestation.: If time is entered above; I have spent that time in minutes in the direct care of this critically ill patient, excluding procedure time. ED Disposition Clinical Impression: Acute respiratory failure with hypoxia, CHF (congestive heart failure), S uspected COVID-19 virus infection, Multifocal pneumonia Disposition: OP ADMIT IP TO THIS HOSP Is pt being admited?: Yes Does the pt Need Aspirin: No Condition: Stable
[2020-06-24 19:26] LABS: Hematocrit 41.4 % (35.5-45.6); Hemoglobin 14.6 gm/dl (11.8-15.2); Mean Corpuscular HGB Conc 35 % (32-34); Mean Corpuscular Volume 92 fl (84-94); Platelet Count 262 K/mm3 (140-440); Red Blood Count 4.48 M/mm3 (3.65-5.03); Red Cell Distribution Width 15.2 % (13.2-15.2)
[2020-06-24 19:35] LABS: Alanine Aminotransferase 63 units/L (7-56); Albumin 3.4 g/dL (3.9-5); BUN/Creatinine Ratio 21; Blood Urea Nitrogen 21 mg/dL (9-20); Calcium 9.5 mg/dL (8.4-10.2); Hemolysis Index 6
[2020-06-24 19:57] LABS: Basophils % (Manual) 0 % (0.0-1.8); Total Cells Counted 100
[2020-06-24 19:58] LABS: Band Neutrophils # (Manual) 0.1 K/mm3; Eosinophils % (Manual) 0 % (0.0-4.3); Platelet Estimate Consistent w Auto; RBC Morphology Normal
--- NOTE | 2020-06-24 19:58 | XRay Report ---
CHEST 1 VIEW INDICATION / CLINICAL INFORMATION: dyspnea. COMPARISON: 02/18/2017 FINDINGS: SUPPORT DEVICES: None. HEART / MEDIASTINUM: Enlarged, but similar to prior exam. LUNGS / PLEURA: Interval development of central pulmonary vascular congestion. Interval development o f fluffy opacities in the periphery of the right lung field. Additional opacities are noted within th e left lung base. No pneumothorax or pleural effusion. ADDITIONAL FINDINGS: No significant additional findings. IMPRESSION: 1. Interval development of opacities throughout the periphery of the right lung field and left lung b ase. Atypical versus viral infectious process leads the differential. 2. Findings consistent with congestive heart failure and mild central pulmonary vascular congestion. Signer Name: Irving Murphy MD Signed: 06/24/2020 7:54 PM Workstation Name: [id number]
[2020-06-24] MEDS ORDERED: AZITHROMYCIN 500 MG in SODIUM CHLORIDE 0.9% 250ML 250 ML IV ONE (22:19)
[2020-06-24] MEDS ORDERED: ONDANSETRON 4 MG/2 ML INJ IV PRN (23:05)
[2020-06-24] MEDS ORDERED: MAGNESIUM HYDROXIDE (MOM) ORAL LIQD UDC PO PRN (23:05)
[2020-06-24] MEDS ORDERED: DEXTROSE 50% IN WATER (25GM) 50 ML SYRINGE IV PRN (23:05)
[2020-06-24] MEDS ORDERED: ACETAMINOPHEN 325 MG TAB PO PRN (23:05)
--- NOTE | 2020-06-24 23:18 | History and Physical Report ---
History of Present Illness Date of examination: 06/24/20 Date of admission: 06/24/20 22:27 Chief complaint: Respiratory Distress History of present illness: 69-year-old -Citizen Of [place] male with known history of hypertension, CHF, diabetes mellitus, GERD, COPD, dementia, pulmonary hypertension presenting to the emergency room today [facility] with respiratory failure, pneumonia and possible CHF. Patient was said to be hypoxic with O2 saturation of about 89% upon arrival. Patient has been given Rocephin, dexamethasone and Lasix at the Medical clinic. Patient was placed on oxygen by nasal cannula upon arrival with oxygen saturation improving to about 97% on 2 L of oxygen. Patient has been having generalized malaise and shortness of breath. He has also had some mild nausea but no vomiting and no diarrhea. He has been having increasing shortness of breath and cough over the past 2 weeks. Cough is said to be productive with some yellowish sputum. Patient denies any sick contacts and no recent travel. Denies any contact with anyone with COVID-19. Work-up in the emergency room today reveals bilateral infiltrates on the chest x-ray. Patient has been placed on empiric IV antibiotics and also placed on iso lation precautions to rule out COVID-19. Past History Past Medical History: arthritis, COPD, diabetes, GERD, hypertension, other (Dementia, pulmonary hypertension) Past Surgical History: No surgical history Social history: smoking (Former Smoker) Family history: no significant family history Medications and Allergies Allergies Allergy/AdvReac Type Severity Reaction Status Date / Time lisinopril Allergy Angioedema Verified 02/17/17 12:30 Home Medications Medication Instructions Recorded Confirmed Last Taken Type Pantoprazole Sodium 40 tab PO ONCE 02/16/17 02/16/17 Unknown History Aspirin EC [Halfprin EC] 81 mg PO QDAY #30 tablet. 02/22/17 Unknown Rx NIFEdipine XL [Procardia Xl] 60 mg PO Q12HR #60 tablet 02/22/17 Unknown Rx hydrALAZINE [Apresoline TAB] 50 mg PO Q8HR #90 tablet 02/22/17 Unknown Rx hydroCHLOROthiazide [HCTZ] 25 mg PO QDAY #30 tablet 02/22/17 Unknown Rx metFORMIN [Glucophage] 500 mg PO BIDDIAB #60 tablet 02/22/17 Unknown Rx predniSONE [Deltasone] 20 mg PO QDAY #5 tab 02/23/17 Unknown Rx Active Meds: Active Medications Acetaminophen (Tylenol) 650 mg PO Q4H PRN PRN Reason: Pain MILD(1-3)/Fever >100.5/OLIVER Dextrose (D50w (25gm) Syringe) 50 ml IV Q30MIN PRN; Protocol PRN Reason: Hypoglycemia Dextrose (D50w (25gm) Syringe) 50 ml IV Q30MIN PRN; Protocol PRN Reason: Hypoglycemia Azithromycin 500 mg/ Sodium (Chloride) 250 mls @ 250 mls/hr IV ONCE ONE; Protocol Stop: 06/24/20 23:18 Last Admin: 06/24/20 22:40 Dose: 250 mls/hr Documented by: Ceftriaxone Sodium (Rocephin/Ns 2 Gm/100 Ml) 2 gm in 100 mls @ 200 mls/hr IV Q24HR VENU; Protocol Azithromycin 500 mg/ Sodium (Chloride) 250 mls @ 250 mls/hr IV Q24HR VENU; Protocol Insulin Human Lispro (Humalog) 0 unit SUB-Q ACHS VENU; Protocol Insulin Human Lispro (Humalog) 0 unit SUB-Q ACHS EVNU; Protocol Magnesium Hydroxide (Milk Of Magnesia) 30 ml PO Q4H PRN PRN Reason: Constipation Ondansetron HCl (Zofran) 4 mg IV Q8H PRN PRN Reason: Nausea And Vomiting Sodium Chloride (Sodium Chloride Flush Syringe 10 Ml) 10 ml IV BID VENU Sodium Chloride (Sodium Chloride Flush Syringe 10 Ml) 10 ml IV PRN PRN PRN Reason: LINE FLUSH Review of Systems Constitutional: no fever, no chills Ears, nose, mouth and throat: no nasal congestion, no sore throat Cardiovascular: no chest pain, no palpitations Respiratory: cough, shortness of breath Gastrointestinal: no abdominal pain, no nausea, no vomiting, no diarrhea Genitourinary Male: no dysuria, no hematuria, no flank pain Musculoskeletal: no neck pain, no low back pain Integumentary: no rash, no pruritis Neurological: no headaches, no confusion Psychiatric: no anxiety, no depression Exam - Constitutional Vitals: Temp Pulse Resp BP Pulse Ox 99.2 F 73 26 H 137/83 91 06/24/20 18:28 06/24/20 21:31 06/24/20 21:31 06/24/20 21:31 06/24/20 21:31 General appearance: Present: no acute distress, well-nourished - EENT Eyes: Present: PERRL, EOM intact. Absent: scleral icterus ENT: hearing intact, clear oral mucosa, dentition normal - Neck Neck: Present: supple, normal ROM - Respiratory Respiratory effort: normal Respiratory: bilateral: diminished - Cardiovascular Rhythm: regular Heart Sounds: Present: S1 & S2. Absent: gallop, systolic murmur, diastolic murmur, rub - Extremities Extremities: no ischemia, pulses intact, pulses symmetrical, No edema, Full ROM Peripheral Pulses: within normal limits - Abdominal General gastrointestinal: Present: soft, non-tender, non-distended, normal bowel sounds. Absent: mass - Integumentary Integumentary: Present: clear, warm, dry. Absent: rash - Musculoskeletal Musculoskeletal: strength equal bilaterally - Psychiatric Psychiatric: appropriate mood/affect, intact judgment & insight, memory intact, cooperative - Neurologic Neurologic: CNII-XII intact, no focal deficits, moves all extremities Results - Labs CBC & Chem 7: 06/25/20 03:07 06/25/20 03:07 Labs: Abnormal lab results 06/24/20 06/24/20 Range/Units 18:51 18:51 MCH 33 H (28-32) pg MCHC 35 H (32-34) % Seg Neuts % (Manual) 93.0 H (40.0-70.0) % Lymphocytes % (Manual) 1.0 L (13.4-35.0) % Lymphocytes # (Manual) 0.1 L (1.2-5.4) K/mm3 Sodium 135 L (137-145) mmol/L Potassium 3.5 L (3.6-5.0) mmol/L Chloride 90.5 L (98-107) mmol/L BUN 21 H (9-20) mg/dL Glucose 158 H (75-100) mg/dL Total Bilirubin 1.90 H (0.1-1.2) mg/dL AST 87 H (5-40) units/L ALT 63 H (7-56) units/L Total Protein 8.8 H (6.3-8.2) g/dL Albumin 3.4 L (3.9-5) g/dL Assessment and Plan - Patient Problems (1) Acute respiratory failure with hypoxia Current Visit: Yes Status: Acute Plan to address problem: Possibly secondary to underlying pneumonia. Patient placed on oxygen by nasal cannula and will keep O2 saturation greater or equal to 94%. (2) Multifocal pneumonia Current Visit: Yes Status: Acute Plan to address problem: He has been placed on empiric IV antibiotics. We will await blood culture results. (3) Suspected COVID-19 virus infection Current Visit: Yes Status: Acute Plan to address problem: Patient placed on isolation precautions. We will request infectious disease evaluation and recommendation. Meanwhile patient placed on IV steroid. (4) Diabetes mellitus Current Visit: Yes Status: Acute Plan to address problem: We will monitor Accu-Cheks and resume routine home medications once reconciled. (5) HTN (hypertension) Current Visit: No Status: Acute Plan to address problem: Blood pressure remained stable. We will monitor vital signs closely and resume routine home medications once reconciled.. (6) DVT prophylaxis Current Visit: No Status: Acute Plan to address problem: Patient placed on subcutaneous Lovenox. (7) Full code status Current Visit: Yes Status: Acute
[2020-06-25 01:54] LABS: C-Reactive Protein 10.6 mg/dL (0.00-1.30)
[2020-06-25 03:54] LABS: Basophils % (Auto) 0.6 % (0.0-1.8); Hematocrit 40.9 % (35.5-45.6); Hemoglobin 14.1 gm/dl (11.8-15.2); Lymphocytes # (Auto) 0.4 K/mm3 (1.2-5.4); Mean Corpuscular HGB Conc 35 % (32-34); Mean Corpuscular Volume 93 fl (84-94); Monocytes # (Auto) 0.7 K/mm3 (0.0-0.8); Monocytes % (Auto) 15.4 % (0.0-7.3); Platelet Count 241 K/mm3 (140-440); Red Blood Count 4.41 M/mm3 (3.65-5.03); Red Cell Distribution Width 15.1 % (13.2-15.2)
[2020-06-25 03:58] LABS: BUN/Creatinine Ratio 29; Blood Urea Nitrogen 26 mg/dL (9-20); Hemolysis Index 9
[2020-06-25 04:09] LABS: INR 1.07 (0.87-1.13)
[2020-06-25] MEDS ORDERED: INSULIN LISPRO 100 UNIT/ML VIAL 3 mL SUB-Q SCH (07:30)
[2020-06-25] MEDS: INSULIN LISPRO 100 UNIT/ML VIAL 3 mL SUB-Q SCH ×4 (07:30→23:13)
[2020-06-25] MEDS ORDERED: AZITHROMYCIN 500 MG in SODIUM CHLORIDE 0.9% 250ML 250 ML IV SCH (10:00)
[2020-06-25] MEDS ORDERED: dexAMETHasone 4 MG/ML VIAL IV SCH (10:00)
[2020-06-25] MEDS: cefTRIAXone/NS 2 GM/100 ML 2 GM/100 ML BAG IV SCH (13:04)
--- NOTE | 2020-06-25 14:22 | Consultation ---
History of Present Illness - Reason for Consult Consult date: 06/25/20 Pneumonia, COVID rule out Requesting physician: STARR MALAGON - History of Present Illness The patient is a 69-year-old male with hypertension, CHF, diabetes, dementia, COPD admitted to the hospital with generalized malaise, shortness of breath, cough over the last 2 weeks. He went to an urgent care and was found to be hypoxic and sent here. Chest x-ray showed bilateral infiltrates. Started on empiric antibiotics and steroids. COVID test is pending. Current oxygen requirements are 4 to 5 L by nasal cannula. Procalcitonin 0.07, ferritin 3640, CRP 10.6, LDH 388, d-dimer 539.5 Review of Systems: reviewed in the chart, unable to obtain directly due to PPE shortage and preservation Past History Past Medical History: arthritis, COPD, diabetes, GERD, hypertension, other (Dementia, pulmonary hypertension) Past Surgical History: No surgical history Social history: smoking (Former Smoker) Family history: no significant family history Medications and Allergies Allergies Allergy/AdvReac Type Severity Reaction Status Date / Time lisinopril Allergy Angioedema Verified 02/17/17 12:30 Home Medications Medication Instructions Recorded Confirmed Last Taken Type Pantoprazole Sodium 40 tab PO ONCE 02/16/17 02/16/17 Unknown History Aspirin EC [Halfprin EC] 81 mg PO QDAY #30 tablet. 02/22/17 Unknown Rx NIFEdipine XL [Procardia Xl] 60 mg PO Q12HR #60 tablet 02/22/17 Unknown Rx hydrALAZINE [Apresoline TAB] 50 mg PO Q8HR #90 tablet 02/22/17 Unknown Rx hydroCHLOROthiazide [HCTZ] 25 mg PO QDAY #30 tablet 02/22/17 Unknown Rx metFORMIN [Glucophage] 500 mg PO BIDDIAB #60 tablet 02/22/17 Unknown Rx predniSONE [Deltasone] 20 mg PO QDAY #5 tab 02/23/17 Unknown Rx Active Meds: Active Medications Acetaminophen (Tylenol) 650 mg PO Q4H PRN PRN Reason: Pain MILD(1-3)/Fever >100.5/OLIVER Azithromycin (Zithromax) 500 mg PO QDAY VENU Stop: 06/28/20 10:01 Dexamethasone (Decadron) 6 mg PO DAILY VENU Stop: 07/04/20 10:01 Dextrose (D50w (25gm) Syringe) 50 ml IV Q30MIN PRN; Protocol PRN Reason: Hypoglycemia Enoxaparin Sodium (Enoxaparin) 40 mg SUB-Q QDAY@2200 VENU Ceftriaxone Sodium (Rocephin/Ns 2 Gm/100 Ml) 2 gm in 100 mls @ 200 mls/hr IV Q24HR VENU; Protocol Last Admin: 06/25/20 13:04 Dose: 200 mls/hr Documented by: Azithromycin 500 mg/ Sodium (Chloride) 250 mls @ 250 mls/hr IV Q24HR VENU; Protocol Stop: 06/25/20 15:00 Last Admin: 06/25/20 11:26 Dose: 250 mls/hr Documented by: Insulin Human Lispro (Humalog) 0 unit SUB-Q ACHS [facility]; Protocol Last Admin: 06/25/20 13:04 Dose: 4 unit Documented by: Magnesium Hydroxide (Milk Of Magnesia) 30 ml PO Q4H PRN PRN Reason: Constipation Ondansetron HCl (Zofran) 4 mg IV Q8H PRN PRN Reason: Nausea And Vomiting Sodium Chloride (Sodium Chloride Flush Syringe 10 Ml) 10 ml IV BID [facility] Last Admin: 06/25/20 11:27 Dose: 10 ml Documented by: Sodium Chloride (Sodium Chloride Flush Syringe 10 Ml) 10 ml IV PRN PRN PRN Reason: LINE FLUSH Physical Examination - Physical Exam Narrative exam: Physical Exam (reviewed in chart due to PPE conservation) Constitutional: limited due to PPE conservation strategy Head, Ears, Nose: limited due to PPE conservation strategy Eyes: limited due to PPE conservation strategy Neck: limited due to PPE conservation strategy Oral: limited due to PPE conservation strategy Cardiovascular: limited due to PPE conservation strategy Respiratory: limited due to PPE conservation strategy GI: limited due to PPE conservation strategy Musculoskeletal: limited due to PPE conservation strategy Skin: limited due to PPE conservation strategy Hem/Lymphatic: limited due to PPE conservation strategy Psych: limited due to PPE conservation strategy Neurological: limited due to PPE conservation strategy - Constitutional Vitals: Vital Signs Temp Pulse Resp BP Pulse Ox 97.7 F 82 19 138/86 92 06/25/20 12:33 06/25/20 12:33 06/25/20 12:33 06/25/20 12:33 06/25/20 12:33 Temperature -Last 24 Hours Temperature 97.7 F Temperature 97.8 F Temperature 98.9 F Temperature 99.2 F Temperature 99.2 F Results - Labs CBC & Chem 7: 06/25/20 03:07 06/25/20 03:07 Labs: Abnormal lab results 06/24/20 06/24/20 06/24/20 Range/Units 18:51 18:51 23:49 WBC (4.5-11.0) K/mm3 MCH 33 H (28-32) pg MCHC 35 H (32-34) % Lymph % (Auto) (13.4-35.0) % [place] % (Auto) (0.0-7.3) % Lymph # (1.2-5.4) K/mm3 Seg Neutrophils % (40.0-70.0) % Seg Neuts % (Manual) 93.0 H (40.0-70.0) % Lymphocytes % (Manual) 1.0 L (13.4-35.0) % Lymphocytes # (Manual) 0.1 L (1.2-5.4) K/mm3 D-Dimer 539.51 H (0-234) ng/mlDDU Sodium 135 L (137-145) mmol/L Potassium 3.5 L (3.6-5.0) mmol/L Chloride 90.5 L (98-107) mmol/L BUN 21 H (9-20) mg/dL Glucose 158 H (75-100) mg/dL POC Glucose (70-105) Ferritin (30.0-300.0) ng/mL Total Bilirubin 1.90 H (0.1-1.2) mg/dL AST 87 H (5-40) units/L ALT 63 H (7-56) units/L Lactate Dehydrogenase (91-180) units/L C-Reactive Protein (0.00-1.30) mg/dL Total Protein 8.8 H (6.3-8.2) g/dL Albumin 3.4 L (3.9-5) g/dL 06/24/20 06/24/20 06/25/20 Range/Units 23:49 23:49 03:07 WBC 4.3 L (4.5-11.0) K/mm3 MCH (28-32) pg MCHC 35 H (32-34) % Lymph % (Auto) 10.0 L (13.4-35.0) % [place] % (Auto) 15.4 H (0.0-7.3) % Lymph # 0.4 L (1.2-5.4) K/mm3 Seg Neutrophils % 74.0 H (40.0-70.0) % Seg Neuts % (Manual) (40.0-70.0) % Lymphocytes % (Manual) (13.4-35.0) % Lymphocytes # (Manual) (1.2-5.4) K/mm3 D-Dimer (0-234) ng/mlDDU Sodium (137-145) mmol/L Potassium (3.6-5.0) mmol/L Chloride (98-107) mmol/L BUN (9-20) mg/dL Glucose 195 H (75-100) mg/dL POC Glucose (70-105) Ferritin 3640.0 H (30.0-300.0) ng/mL Total Bilirubin (0.1-1.2) mg/dL AST (5-40) units/L ALT (7-56) units/L Lactate Dehydrogenase 388 H (91-180) units/L C-Reactive Protein 10.60 H (0.00-1.30) mg/dL Total Protein (6.3-8.2) g/dL Albumin (3.9-5) g/dL 06/25/20 06/25/20 Range/Units 03:07 10:05 WBC (4.5-11.0) K/mm3 MCH (28-32) pg MCHC (32-34) % Lymph % (Auto) (13.4-35.0) % [place] % (Auto) (0.0-7.3) % Lymph # (1.2-5.4) K/mm3 Seg Neutrophils % (40.0-70.0) % Seg Neuts % (Manual) (40.0-70.0) % Lymphocytes % (Manual) (13.4-35.0) % Lymphocytes # (Manual) (1.2-5.4) K/mm3 D-Dimer (0-234) ng/mlDDU Sodium 134 L (137-145) mmol/L Potassium 3.4 L (3.6-5.0) mmol/L Chloride 90.4 L (98-107) mmol/L BUN 26 H (9-20) mg/dL Glucose 282 H (75-100) mg/dL POC Glucose 280 H (70-105) Ferritin (30.0-300.0) ng/mL Total Bilirubin (0.1-1.2) mg/dL AST (5-40) units/L ALT (7-56) units/L Lactate Dehydrogenase (91-180) units/L C-Reactive Protein (0.00-1.30) mg/dL Total Protein (6.3-8.2) g/dL Albumin (3.9-5) g/dL - Imaging and Cardiology Chest x-ray: report reviewed, image reviewed (patchy peripheral opacities) Assessment and Plan Cultures: Coronavirus PCR: pending Blood culture: in process A/P: 69-year-old male with hypertension, CHF, diabetes, dementia, COPD admitted to the hospital with generalized malaise, shortness of breath, cough over the last 2 weeks: #Bilateral pneumonia: likely secondary to COVID-19, test pending, but high suspicion given elevated markers. #Acute hypoxic respiratory failure: on 4-5 lit/min NC. #DM: maintain glycemic control. #Leucopenia Recs: IV/PO Dexamethasone 6 mg daily x 10 days IV Remdesivir into 5 days, if COVID-19 PCR is positive prophylactic anticoagulation based on d-dimer trend ferritin, LDH, d-dimer, CRP every 2-3 days for risk stratification and to assess disease progression Procalcitonin is low, antibiotics discontinued Vesta Tinsley MD, FACP [facility] ([facility] C: [phone] O: [phone] F: [phone]
--- NOTE | 2020-06-25 16:51 | Progress Note ---
Assessment and Plan - Patient Problems (1) Acute respiratory failure with hypoxia Current Visit: Yes Status: Acute Plan to address problem: Patient acute hypoxemic respiratory failure most likely secondary to Kovic pneumonia given positivity of inflammatory markers. Patient also procalcitonin levels not consistent with pneumonia. Patient to be treated with oxygen supportive care. Also dexamethasone and antiretroviral to be started for Kovic pneumonia. Continue respiratory isolation oxygen fluid supplementation. (2) Diabetes mellitus Current Visit: Yes Status: Acute (3) Full code status Current Visit: Yes Status: Acute (4) Multifocal pneumonia Current Visit: Yes Status: Acute Plan to address problem: Secondary to Kovic. Start patient on dexamethasone with remdesivir (5) Suspected COVID-19 virus infection Current Visit: Yes Status: Acute Plan to address problem: Patient positive for COVID-19 pneumonia. (6) CHF (congestive heart failure) Current Visit: Yes Status: Chronic Plan to address problem: At present seems to be fairly well compensated heart failure. Continue beta- natividad diuretic as tolerated. (7) HTN (hypertension) Current Visit: No Status: Acute Plan to address problem: fair control Subjective Date of service: 06/25/20 Principal diagnosis: Acute respiratory failure Interval history: Patient 69-year-old male with a history of hypertension, congestive heart failure, diabetes, COPD, GERD and pulmonary hypertension presents with acute respiratory failure work-up revealed congestive heart failure versus pneumonia. Patient had persistent cough shortness of breath and generalized malaise on presentation. Patient found to be hypoxemic at 89 upon presentation. Objective - Constitutional Vitals: Vital Signs - 12hr 06/25/20 06/25/20 06/25/20 04:58 05:01 06:01 Temperature 97.8 F Pulse Rate 70 67 Respiratory 23 28 H Rate Blood Pressure 122/65 133/86 O2 Sat by Pulse 89 92 Oximetry 06/25/20 06/25/20 06/25/20 07:01 08:01 12:33 Temperature 97.7 F Pulse Rate 65 74 82 Respiratory 22 21 19 Rate Blood Pressure 140/80 154/95 138/86 O2 Sat by Pulse 89 87 92 Oximetry General appearance: Present: no acute distress, well-nourished - EENT Eyes: PERRL, EOM intact ENT: hearing intact, clear oral mucosa Ears: bilateral: normal - Neck Neck: supple, normal ROM - Respiratory Respiratory effort: normal Respiratory: bilateral: diminished - Breasts Breasts: normal - Cardiovascular Rhythm: regular Heart Sounds: Present: S1 & S2. Absent: gallop, rub Extremities: pulses intact, No edema, normal color, Full ROM - Gastrointestinal General gastrointestinal: Present: soft, non-tender, non-distended, normal bowel sounds - Genitourinary Male genitourinary: normal - Integumentary Integumentary: clear, warm, dry - Musculoskeletal Musculoskeletal: 1, strength equal bilaterally - Neurologic Neurologic: moves all extremities - Psychiatric Psychiatric: memory intact, appropriate mood/affect, intact judgment & insight - Labs CBC & Chem 7: 06/25/20 03:07 06/25/20 03:07 Labs: Abnormal lab results 06/24/20 06/24/20 06/24/20 Range/Units 18:51 18:51 23:49 WBC (4.5-11.0) K/mm3 MCH 33 H (28-32) pg MCHC 35 H (32-34) % Lymph % (Auto) (13.4-35.0) % [place] % (Auto) (0.0-7.3) % Lymph # (1.2-5.4) K/mm3 Seg Neutrophils % (40.0-70.0) % Seg Neuts % (Manual) 93.0 H (40.0-70.0) % Lymphocytes % (Manual) 1.0 L (13.4-35.0) % Lymphocytes # (Manual) 0.1 L (1.2-5.4) K/mm3 D-Dimer 539.51 H (0-234) ng/mlDDU Sodium 135 L (137-145) mmol/L Potassium 3.5 L (3.6-5.0) mmol/L Chloride 90.5 L (98-107) mmol/L BUN 21 H (9-20) mg/dL Glucose 158 H (75-100) mg/dL POC Glucose (70-105) Ferritin (30.0-300.0) ng/mL Total Bilirubin 1.90 H (0.1-1.2) mg/dL AST 87 H (5-40) units/L ALT 63 H (7-56) units/L Lactate Dehydrogenase (91-180) units/L C-Reactive Protein (0.00-1.30) mg/dL Total Protein 8.8 H (6.3-8.2) g/dL Albumin 3.4 L (3.9-5) g/dL Coronavirus (PCR) (Negative) 06/24/20 06/24/20 06/24/20 Range/Units 23:49 23:49 Unknown WBC (4.5-11.0) K/mm3 MCH (28-32) pg MCHC (32-34) % Lymph % (Auto) (13.4-35.0) % [place] % (Auto) (0.0-7.3) % Lymph # (1.2-5.4) K/mm3 Seg Neutrophils % (40.0-70.0) % Seg Neuts % (Manual) (40.0-70.0) % Lymphocytes % (Manual) (13.4-35.0) % Lymphocytes # (Manual) (1.2-5.4) K/mm3 D-Dimer (0-234) ng/mlDDU Sodium (137-145) mmol/L Potassium (3.6-5.0) mmol/L Chloride (98-107) mmol/L BUN (9-20) mg/dL Glucose 195 H (75-100) mg/dL POC Glucose (70-105) Ferritin 3640.0 H (30.0-300.0) ng/mL Total Bilirubin (0.1-1.2) mg/dL AST (5-40) units/L ALT (7-56) units/L Lactate Dehydrogenase 388 H (91-180) units/L C-Reactive Protein 10.60 H (0.00-1.30) mg/dL Total Protein (6.3-8.2) g/dL Albumin (3.9-5) g/dL Coronavirus (PCR) Positive A (Negative) 06/25/20 06/25/20 06/25/20 Range/Units 03:07 03:07 10:05 WBC 4.3 L (4.5-11.0) K/mm3 MCH (28-32) pg MCHC 35 H (32-34) % Lymph % (Auto) 10.0 L (13.4-35.0) % [place] % (Auto) 15.4 H (0.0-7.3) % Lymph # 0.4 L (1.2-5.4) K/mm3 Seg Neutrophils % 74.0 H (40.0-70.0) % Seg Neuts % (Manual) (40.0-70.0) % Lymphocytes % (Manual) (13.4-35.0) % Lymphocytes # (Manual) (1.2-5.4) K/mm3 D-Dimer (0-234) ng/mlDDU Sodium 134 L (137-145) mmol/L Potassium 3.4 L (3.6-5.0) mmol/L Chloride 90.4 L (98-107) mmol/L BUN 26 H (9-20) mg/dL Glucose 282 H (75-100) mg/dL POC Glucose 280 H (70-105) Ferritin (30.0-300.0) ng/mL Total Bilirubin (0.1-1.2) mg/dL AST (5-40) units/L ALT (7-56) units/L Lactate Dehydrogenase (91-180) units/L C-Reactive Protein (0.00-1.30) mg/dL Total Protein (6.3-8.2) g/dL Albumin (3.9-5) g/dL Coronavirus (PCR) (Negative)
[2020-06-25] MEDS ORDERED: REMDESIVIR 200 MG in SODIUM CHLORIDE 0.9% 250ML 250 ML IV ONE (18:00)
[2020-06-25] MEDS ORDERED: REMDESIVIR 100 MG VIAL IV ONE (18:00)
[2020-06-25] MEDS ORDERED: SODIUM CHLORIDE 0.9% 50 ML IVPB IV SCH (18:00)
[2020-06-25] MEDS ORDERED: REMDESIVIR 100 MG in SODIUM CHLORIDE 0.9% 250ML 250 ML IV SCH (21:00)
[2020-06-25] MEDS: ENOXAPARIN 40 MG/0.4 ML INJ SUB-Q SCH (23:12)
[2020-06-26 07:23] LABS: Basophils % (Auto) 0.3 % (0.0-1.8); Hematocrit 43.2 % (35.5-45.6); Hemoglobin 14.7 gm/dl (11.8-15.2); Lymphocytes # (Auto) 0.7 K/mm3 (1.2-5.4); Lymphocytes % (Auto) 7.9 % (13.4-35.0); Mean Corpuscular HGB Conc 34 % (32-34); Mean Corpuscular Volume 94 fl (84-94); Monocytes # (Auto) 1.2 K/mm3 (0.0-0.8); Monocytes % (Auto) 12.5 % (0.0-7.3); Platelet Count 321 K/mm3 (140-440); Red Blood Count 4.62 M/mm3 (3.65-5.03); Red Cell Distribution Width 15.2 % (13.2-15.2)
[2020-06-26] MEDS: INSULIN LISPRO 100 UNIT/ML VIAL 3 mL SUB-Q SCH ×4 (07:30→22:31)
--- NOTE | 2020-06-26 08:39 | Progress Note ---
Assessment and Plan Assessment and plan: Acute respiratory failure with hypoxia Patient acute hypoxemic respiratory failure secondary to COVID pneumonia. Continue respiratory isolation oxygen fluid supplementation. Diabetes mellitus Accuchecks, SSRI Multifocal pneumonia Secondary to COVID. Start patient on dexamethasone with remdesivir COVID-19 virus infection Patient positive for COVID-19 pneumonia.06/24/20 Remdesivir completes 06/29 CHF (congestive heart failure) At present seems to be fairly well compensated heart failure. Continue beta- natividad diuretic as tolerated. HTN (hypertension) BP meds History Interval history: No new issues Hospitalist Physical - Constitutional Vitals: Temp Pulse Resp BP Pulse Ox 97.7 F 67 20 142/90 95 06/26/20 05:31 06/26/20 05:31 06/26/20 05:31 06/26/20 05:31 06/26/20 05:31 General appearance: Present: no acute distress, well-nourished - EENT Eyes: Present: PERRL, EOM intact ENT: hearing intact, clear oral mucosa, dentition normal - Neck Neck: Present: supple, normal ROM - Respiratory Respiratory effort: normal Respiratory: bilateral: CTA - Cardiovascular Rhythm: regular Heart Sounds: Present: S1 & S2. Absent: gallop, rub - Extremities Extremities: no ischemia, No edema, Full ROM - Abdominal General gastrointestinal: soft, non-tender, non-distended, normal bowel sounds - Integumentary Integumentary: Present: clear, warm, dry - Neurologic Neurologic: CNII-XII intact, moves all extremities Results - Labs CBC & Chem 7: 06/26/20 07:06 06/25/20 03:07 Labs: Laboratory Last Values WBC 9.3 K/mm3 (4.5-11.0) 06/26/20 07:06 RBC 4.62 M/mm3 (3.65-5.03) 06/26/20 07:06 Hgb 14.7 gm/dl (11.8-15.2) 06/26/20 07:06 Hct 43.2 % (35.5-45.6) 06/26/20 07:06 MCV 94 fl (84-94) 06/26/20 07:06 MCH 32 pg (28-32) 06/26/20 07:06 MCHC 34 % (32-34) 06/26/20 07:06 RDW 15.2 % (13.2-15.2) 06/26/20 07:06 Plt Count 321 K/mm3 (140-440) 06/26/20 07:06 Lymph % (Auto) 7.9 % (13.4-35.0) L 06/26/20 07:06 [place] % (Auto) 12.5 % (0.0-7.3) H 06/26/20 07:06 Eos % (Auto) 0.0 % (0.0-4.3) 06/26/20 07:06 Baso % (Auto) 0.3 % (0.0-1.8) 06/26/20 07:06 Lymph # 0.7 K/mm3 (1.2-5.4) L 06/26/20 07:06 [place] # 1.2 K/mm3 (0.0-0.8) H 06/26/20 07:06 Eos # 0.0 K/mm3 (0.0-0.4) 06/26/20 07:06 Baso # 0.0 K/mm3 (0.0-0.1) 06/26/20 07:06 Add Manual Diff Complete 06/24/20 18:51 Total Counted 100 06/24/20 18:51 Seg Neutrophils % 79.3 % (40.0-70.0) H 06/26/20 07:06 Seg Neuts % (Manual) 93.0 % (40.0-70.0) H 06/24/20 18:51 Band Neutrophils % 1.0 % 06/24/20 18:51 Lymphocytes % (Manual) 1.0 % (13.4-35.0) L 06/24/20 18:51 Reactive Lymphs % (Man) 0 % 06/24/20 18:51 Monocytes % (Manual) 2.0 % (0.0-7.3) 06/24/20 18:51 Eosinophils % (Manual) 0 % (0.0-4.3) 06/24/20 18:51 Basophils % (Manual) 0 % (0.0-1.8) 06/24/20 18:51 Metamyelocytes % 3.0 % 06/24/20 18:51 Myelocytes % 0 % 06/24/20 18:51 Promyelocytes % 0 % 06/24/20 18:51 Blast Cells % 0 % 06/24/20 18:51 Nucleated RBC % Not Reportable 06/24/20 18:51 Seg Neutrophils # 7.3 K/mm3 (1.8-7.7) 06/26/20 07:06 Seg Neutrophils # Man 7.0 K/mm3 (1.8-7.7) 18 18:51 Band Neutrophils # 0.1 K/mm3 06/24/20 18:51 Lymphocytes # (Manual) 0.1 K/mm3 (1.2-5.4) L 18 18:51 Abs React Lymphs (Man) 0.0 K/mm3 06/24/20 18:51 Monocytes # (Manual) 0.2 K/mm3 (0.0-0.8) 06/24/20 18:51 Eosinophils # (Manual) 0.0 K/mm3 (0.0-0.4) 06/24/20 18:51 Basophils # (Manual) 0.0 K/mm3 (0.0-0.1) 06/24/20 18:51 Metamyelocytes # 0.2 K/mm3 06/24/20 18:51 Myelocytes # 0.0 K/mm3 06/24/20 18:51 Promyelocytes # 0.0 K/mm3 06/24/20 18:51 Blast Cells # 0.0 K/mm3 06/24/20 18:51 WBC Morphology Not Reportable 06/24/20 18:51 Hypersegmented Neuts Not Reportable 06/24/20 18:51 Hyposegmented Neuts Not Reportable 06/24/20 18:51 Hypogranular Neuts Not Reportable 06/24/20 18:51 Smudge Cells Not Reportable 06/24/20 18:51 Toxic Granulation Not Reportable 06/24/20 18:51 Toxic Vacuolation Not Reportable 06/24/20 18:51 Dohle Bodies Not Reportable 06/24/20 18:51 Pelger-Huet Anomaly Not Reportable 06/24/20 18:51 Anna Rods Not Reportable 06/24/20 18:51 Platelet Estimate Consistent w auto 06/24/20 18:51 Clumped Platelets Not Reportable 06/24/20 18:51 Plt Clumps, EDTA Not Reportable 06/24/20 18:51 Large Platelets Not Reportable 06/24/20 18:51 Giant Platelets Not Reportable 06/24/20 18:51 Platelet Satelliting Not Reportable 06/24/20 18:51 Plt Morphology Comment Not Reportable 06/24/20 18:51 RBC Morphology Normal 06/24/20 18:51 Dimorphic RBCs Not Reportable 06/24/20 18:51 Polychromasia Not Reportable 06/24/20 18:51 Hypochromasia Not Reportable 06/24/20 18:51 Poikilocytosis Not Reportable 06/24/20 18:51 Anisocytosis Not Reportable 06/24/20 18:51 Microcytosis Not Reportable 06/24/20 18:51 Macrocytosis Not Reportable 06/24/20 18:51 Spherocytes Not Reportable 06/24/20 18:51 Pappenheimer Bodies Not Reportable 06/24/20 18:51 Sickle Cells Not Reportable 06/24/20 18:51 Target Cells Not Reportable 06/24/20 18:51 Tear Drop Cells Not Reportable 06/24/20 18:51 Ovalocytes Not Reportable 06/24/20 18:51 Helmet Cells Not Reportable 06/24/20 18:51 [place] Bodies Not Reportable 06/24/20 18:51 [place] Rings Not Reportable 06/24/20 18:51 Rohit Cells Not Reportable 06/24/20 18:51 Bite Cells Not Reportable 06/24/20 18:51 Crenated Cell Not Reportable 06/24/20 18:51 Elliptocytes Not Reportable 06/24/20 18:51 Acanthocytes (Spur) Not Reportable 06/24/20 18:51 Rouleaux Not Reportable 06/24/20 18:51 Hemoglobin C Crystals Not Reportable 06/24/20 18:51 Schistocytes Not Reportable 06/24/20 18:51 Malaria parasites Not Reportable 06/24/20 18:51 Compa Bodies Not Reportable 06/24/20 18:51 Hem Pathologist Commnt No 06/24/20 18:51 PT 14.0 Sec. (12.2-14.9) 06/25/20 03:07 INR 1.07 (0.87-1.13) 06/25/20 03:07 D-Dimer 539.51 ng/mlDDU (0-234) H 06/24/20 23:49 Sodium 134 mmol/L (137-145) L 06/25/20 03:07 Potassium 3.4 mmol/L (3.6-5.0) L 06/25/20 03:07 Chloride 90.4 mmol/L (98-107) L 06/25/20 03:07 Carbon Dioxide 26 mmol/L (22-30) 06/25/20 03:07 Anion Gap 21 mmol/L 06/25/20 03:07 BUN 26 mg/dL (9-20) H 06/25/20 03:07 Creatinine 0.9 mg/dL (0.8-1.3) 06/25/20 03:07 Estimated GFR > 60 ml/min 06/25/20 03:07 BUN/Creatinine Ratio 29 % 06/25/20 03:07 Glucose 282 mg/dL (75-100) H 06/25/20 03:07 POC Glucose 285 (70-105) H 06/25/20 22:45 Calcium 9.0 mg/dL (8.4-10.2) 06/25/20 03:07 Ferritin 3640.0 ng/mL (30.0-300.0) H 06/24/20 23:49 Total Bilirubin 1.90 mg/dL (0.1-1.2) H 06/24/20 18:51 AST 87 units/L (5-40) H 06/24/20 18:51 ALT 63 units/L (7-56) H 06/24/20 18:51 Alkaline Phosphatase 53 units/L (35-129) 06/24/20 18:51 Lactate Dehydrogenase 388 units/L (91-180) H 06/24/20 23:49 C-Reactive Protein 10.60 mg/dL (0.00-1.30) H 06/24/20 23:49 NT-Pro-B Natriuret Pep 40.72 pg/mL (0-900) 06/24/20 18:57 Total Protein 8.8 g/dL (6.3-8.2) H 06/24/20 18:51 Albumin 3.4 g/dL (3.9-5) L 06/24/20 18:51 Albumin/Globulin Ratio 0.6 % 06/24/20 18:51 Procalcitonin 0.07 ng/mL (<0.15) 06/24/20 23:49 Coronavirus (PCR) Positive (Negative) A 06/24/20 Unknown Microbiology: Microbiology 06/24/20 19:10 Peripheral/Venous Blood Culture - Preliminary NO GROWTH AFTER 24 HOURS 06/24/20 19:06 Peripheral/Venous Blood Culture - Preliminary NO GROWTH AFTER 24 HOURS Breaux/IV: Voiding Method Urinal IV Catheter Type [Right INT / Saline Lock Forearm] Active Medications - Current Medications Current Medications: Generic Name Dose Route Start Last Admin Trade Name Freq PRN Reason Stop Dose Admin Acetaminophen 650 mg 06/24/20 23:05 Tylenol PO Q4H PRN Pain MILD(1-3)/Fever >100.5/OLIVER Azithromycin 500 mg 06/26/20 10:00 Zithromax PO 06/28/20 10:01 QDAY VENU Dexamethasone 6 mg 06/26/20 10:00 Decadron PO 07/04/20 10:01 DAILY [facility] Dextrose 50 ml 06/24/20 23:05 D50w (25gm) Syringe IV Q30MIN PRN Hypoglycemia Protocol Enoxaparin Sodium 40 mg 06/25/20 22:00 06/25/20 23:12 Enoxaparin SUB-Q 40 mg QDAY@2200 VENU Administration Ceftriaxone Sodium 2 gm in 100 mls @ 200 mls/hr 06/25/20 10:00 06/25/20 13:04 Rocephin/Ns 2 Gm/100 Ml IV 200 mls/hr Q24HR VENU Administration Protocol REMDESIVIR 100 mg/ Sodium 250 mls @ 500 mls/hr 06/26/20 21:00 Chloride IV 06/29/20 21:29 Q24HR@2100 [facility] Insulin Human Lispro 0 unit 06/25/20 07:30 06/25/20 23:13 Humalog SUB-Q 4 unit ACHS [facility] Administration Protocol Magnesium Hydroxide 30 ml 06/24/20 23:05 Milk Of Magnesia PO Q4H PRN Constipation Ondansetron HCl 4 mg 06/24/20 23:05 Zofran IV Q8H PRN Nausea And Vomiting Sodium Chloride 10 ml 06/25/20 10:00 06/25/20 23:14 Sodium Chloride Flush Syringe 10 Ml IV 10 ml BID VENU Administration Sodium Chloride 10 ml 06/24/20 23:05 Sodium Chloride Flush Syringe 10 Ml IV PRN PRN LINE FLUSH Sodium Chloride 50 ml 06/25/20 18:00 06/25/20 18:30 Nacl 0.9% IV 06/29/20 18:01 50 ml Q24H VENU Administration Nutrition/Malnutrition Assess - Dietary Evaluation Nutrition/Malnutrition Findings: Nutrition Notes Start: 06/25/20 15:25 Freq: Status: Active Protocol: Document 06/25/20 15:25 LM (Rec: 06/25/20 15:28 LM [id number]) Nutrition Notes Need for Assessment generated from: MD Order,Education Initial or Follow up Brief Note Subjective/Other Information MD consult for diet education. Pt stated he was eating well [employer] and now. Pt stated that he weighed 264 lb a "while back" . Provided pt with DM diet education to pt. Discussed CHO sources, portions, and the plate method. #1 Nutrition Diagnosis Food and nutrition-related knowledge deficit Etiology No prior DM diet education As Evidenced by Signs and Symptoms BG 282, pt wanting education Nutrition Intervention Teaching Recipient Patient Learning Readiness Fair Teaching Methods Discussion Response to Teaching Verbalize understanding, Reinforcement needed Barriers to Learning Age related RD phone number provided Yes Patient aware of follow up options Yes Revisit per MD consult or patient Sign Off request:
[2020-06-26] MEDS: cefTRIAXone/NS 2 GM/100 ML 2 GM/100 ML BAG IV SCH (09:57)
[2020-06-26] MEDS: DEXAMETHASONE 4 MG TAB PO SCH (09:58)
[2020-06-26] MEDS ORDERED: AZITHROMYCIN 250 MG TAB PO SCH (10:00)
--- NOTE | 2020-06-26 12:21 | Progress Note ---
Assessment and Plan Cultures: Coronavirus PCR: positive Blood culture: no growth thus far A/P: 69-year-old male with hypertension, CHF, diabetes, dementia, COPD admitted to the hospital with generalized malaise, shortness of breath, cough over the last 2 weeks: #Bilateral pneumonia: secondary to COVID-19, test positive, elevated markers. #Acute hypoxic respiratory failure: on 4-5 lit/min NC. #DM: maintain glycemic control. #Leucopenia Recs: IV/PO Dexamethasone 6 mg daily x 10 days, D2 IV Remdesivir Day 2 of 5 prophylactic anticoagulation based on d-dimer trend ferritin, LDH, d-dimer, CRP every 2-3 days for risk stratification and to assess disease progression Vesta Tinsley MD, FACP [facility] C: [phone] O: [phone] F: [phone] Subjective Date of service: 06/26/20 Principal diagnosis: Acute respiratory failure Interval history: No fever. Remains on oxygen. COVID +. Started on Remdesivir last evening. Objective - Exam Narrative Exam: Physical Exam (reviewed in chart due to PPE conservation) Constitutional: limited due to PPE conservation strategy Head, Ears, Nose: limited due to PPE conservation strategy Eyes: limited due to PPE conservation strategy Neck: limited due to PPE conservation strategy Oral: limited due to PPE conservation strategy Cardiovascular: limited due to PPE conservation strategy Respiratory: limited due to PPE conservation strategy GI: limited due to PPE conservation strategy Musculoskeletal: limited due to PPE conservation strategy Skin: limited due to PPE conservation strategy Hem/Lymphatic: limited due to PPE conservation strategy Psych: limited due to PPE conservation strategy Neurological: limited due to PPE conservation strategy - Constitutional Vitals: Vital Signs Temp Pulse Resp BP Pulse Ox 97.7 F 67 20 142/90 95 06/26/20 05:31 06/26/20 05:31 06/26/20 05:31 06/26/20 05:31 06/26/20 05:31 Temperature -Last 24 Hours Temperature 97.7 F Temperature 98.2 F Temperature 98.2 F Temperature 97.7 F - Labs CBC & Chem 7: 06/26/20 07:06 06/25/20 03:07 Labs: Abnormal lab results 06/24/20 06/25/20 06/25/20 Range/Units Unknown 17:03 22:04 Lymph % (Auto) (13.4-35.0) % Gregory % (Auto) (0.0-7.3) % Lymph # (1.2-5.4) K/mm3 Gregory # (0.0-0.8) K/mm3 Seg Neutrophils % (40.0-70.0) % POC Glucose 329 H 262 H (70-105) Coronavirus (PCR) Positive A (Negative) 06/25/20 06/26/20 06/26/20 Range/Units 22:45 07:06 08:32 Lymph % (Auto) 7.9 L (13.4-35.0) % Gregory % (Auto) 12.5 H (0.0-7.3) % Lymph # 0.7 L (1.2-5.4) K/mm3 Gregory # 1.2 H (0.0-0.8) K/mm3 Seg Neutrophils % 79.3 H (40.0-70.0) % POC Glucose 285 H 254 H (70-105) Coronavirus (PCR) (Negative)
[2020-06-26] MEDS: ENOXAPARIN 40 MG/0.4 ML INJ SUB-Q SCH (21:08)
[2020-06-26] MEDS: REMDESIVIR 100 MG in SODIUM CHLORIDE 0.9% 250ML 250 ML IV SCH (21:08)
[2020-06-26] MEDS: SODIUM CHLORIDE 0.9% 50 ML IVPB IV SCH (21:09)
[2020-06-27 06:32] LABS: Basophils % (Auto) 0.1 % (0.0-1.8); Eosinophils % (Auto) 0.1 % (0.0-4.3); Hematocrit 40.7 % (35.5-45.6); Hemoglobin 13.9 gm/dl (11.8-15.2); Lymphocytes # (Auto) 0.8 K/mm3 (1.2-5.4); Lymphocytes % (Auto) 7.3 % (13.4-35.0); Mean Corpuscular HGB Conc 34 % (32-34); Mean Corpuscular Volume 92 fl (84-94); Monocytes # (Auto) 1.5 K/mm3 (0.0-0.8); Monocytes % (Auto) 13.4 % (0.0-7.3); Platelet Count 333 K/mm3 (140-440); Red Blood Count 4.41 M/mm3 (3.65-5.03); Red Cell Distribution Width 14.8 % (13.2-15.2)
[2020-06-27 06:48] LABS: Blood Urea Nitrogen 18 mg/dL (9-20); Calcium 9.6 mg/dL (8.4-10.2); Hemolysis Index 20
[2020-06-27 06:52] LABS: BUN/Creatinine Ratio 26
[2020-06-27] MEDS: INSULIN LISPRO 100 UNIT/ML VIAL 3 mL SUB-Q SCH ×4 (08:27→23:11)
[2020-06-27] MEDS: DEXAMETHASONE 4 MG TAB PO SCH (09:48)
--- NOTE | 2020-06-27 14:49 | Progress Note ---
Assessment and Plan - Patient Problems (1) Pneumonia due to COVID-19 virus Current Visit: Yes Status: Acute Plan to address problem: - 06/24 COVID PCR (+) - Dexamethasone PO (06/25-07/05) - IV Remdesivir (06/24-06/29) - ID consulted - Trend LDH, d-dimer, CRP - Supplemental oxygenation as needed - OOB 3 times daily and as needed - Droplet/contact precautions - Pulmonary hygiene (2) Acute respiratory failure with hypoxia Current Visit: Yes Status: Acute Plan to address problem: -Patient was hypoxic on presentation -PO dexamethasone -Supplemental oxygenation as needed -Continuous SPO2 monitoring -Pulmonary toileting (3) Diabetes mellitus Current Visit: Yes Status: Chronic Plan to address problem: - SSI - CC diet - ACCU cheks ACHS - Hypoglycemia protocol (4) CHF (congestive heart failure) Current Visit: Yes Status: Chronic Plan to address problem: -Restarted aspirin, hydrochlorothiazide, Procardia (at lower doses) - At present seems to be fairly well compensated heart failure (5) HTN (hypertension) Current Visit: No Status: Chronic Plan to address problem: -Restarted hydrochlorothiazide, Procardia -Blood pressure monitor per -IV hydralazine PRN (6) DVT prophylaxis Current Visit: No Status: Acute Plan to address problem: - SCDs while in bed - Lovenox subq History Interval history: 69-year-old male with a hypertension, congestive heart failure, diabetes, COPD, GERD, dementia and pulmonary hypertension presents with acute respiratory failure, generalized malaise, and SOB. Work-up revealed congestive heart failure versus pneumonia. Patient found to be hypoxemic at 89 upon presentation and CXR showed bilateral infiltrates. ID consulted and he is now on remdesivir. He remains on supplemental oxygen but states he feels much better. He still has a cough. 06/25: COVID 19 PCR (+), dexamethasone PO, Remdesivir started Hospitalist Physical - Constitutional Vitals: Temp Pulse Resp BP Pulse Ox 97.3 F L 57 L 22 148/88 92 06/27/20 12:00 06/27/20 12:00 06/27/20 12:00 06/27/20 12:00 06/27/20 12:00 General appearance: Present: no acute distress, well-nourished - EENT Eyes: Present: PERRL ENT: hearing decreased - Neck Neck: Present: normal ROM - Respiratory Respiratory effort: normal Respiratory: bilateral: diminished - Cardiovascular Rhythm: regular Heart Sounds: Present: S1 & S2. Absent: systolic murmur, diastolic murmur - Extremities Extremities: no ischemia, pulses intact, pulses symmetrical, No edema, normal temperature, normal color, Full ROM Peripheral Pulses: within normal limits - Abdominal General gastrointestinal: soft, non-tender, non-distended, normal bowel sounds - Integumentary Integumentary: Present: clear, warm, dry - Psychiatric Psychiatric: appropriate mood/affect, cooperative - Neurologic Neurologic: CNII-XII intact, no focal deficits, moves all extremities - Allied Health Allied health notes reviewed: nursing, social work, case management Results - Labs CBC & Chem 7: 06/27/20 04:23 06/27/20 04:23 Labs: Laboratory Last Values WBC 10.9 K/mm3 (4.5-11.0) 06/27/20 04:23 RBC 4.41 M/mm3 (3.65-5.03) 06/27/20 04:23 Hgb 13.9 gm/dl (11.8-15.2) 06/27/20 04:23 Hct 40.7 % (35.5-45.6) 06/27/20 04:23 MCV 92 fl (84-94) 06/27/20 04:23 MCH 32 pg (28-32) 06/27/20 04:23 MCHC 34 % (32-34) 06/27/20 04:23 RDW 14.8 % (13.2-15.2) 06/27/20 04:23 Plt Count 333 K/mm3 (140-440) 06/27/20 04:23 Lymph % (Auto) 7.3 % (13.4-35.0) L 06/27/20 04:23 [place] % (Auto) 13.4 % (0.0-7.3) H 06/27/20 04:23 Eos % (Auto) 0.1 % (0.0-4.3) 06/27/20 04:23 Baso % (Auto) 0.1 % (0.0-1.8) 06/27/20 04:23 Lymph # 0.8 K/mm3 (1.2-5.4) L 06/27/20 04:23 [place] # 1.5 K/mm3 (0.0-0.8) H 06/27/20 04:23 Eos # 0.0 K/mm3 (0.0-0.4) 06/27/20 04:23 Baso # 0.0 K/mm3 (0.0-0.1) 06/27/20 04:23 Add Manual Diff Complete 06/24/20 18:51 Total Counted 100 06/24/20 18:51 Seg Neutrophils % 79.1 % (40.0-70.0) H 06/27/20 04:23 Seg Neuts % (Manual) 93.0 % (40.0-70.0) H 06/24/20 18:51 Band Neutrophils % 1.0 % 06/24/20 18:51 Lymphocytes % (Manual) 1.0 % (13.4-35.0) L 06/24/20 18:51 Reactive Lymphs % (Man) 0 % 06/24/20 18:51 Monocytes % (Manual) 2.0 % (0.0-7.3) 06/24/20 18:51 Eosinophils % (Manual) 0 % (0.0-4.3) 06/24/20 18:51 Basophils % (Manual) 0 % (0.0-1.8) 06/24/20 18:51 Metamyelocytes % 3.0 % 18 18:51 Myelocytes % 0 % 06/24/20 18:51 Promyelocytes % 0 % 06/24/20 18:51 Blast Cells % 0 % 06/24/20 18:51 Nucleated RBC % Not Reportable 06/24/20 18:51 Seg Neutrophils # 8.6 K/mm3 (1.8-7.7) H 06/27/20 04:23 Seg Neutrophils # Man 7.0 K/mm3 (1.8-7.7) 06/24/20 18:51 Band Neutrophils # 0.1 K/mm3 06/24/20 18:51 Lymphocytes # (Manual) 0.1 K/mm3 (1.2-5.4) L 18 18:51 Abs React Lymphs (Man) 0.0 K/mm3 18 18:51 Monocytes # (Manual) 0.2 K/mm3 (0.0-0.8) 06/24/20 18:51 Eosinophils # (Manual) 0.0 K/mm3 (0.0-0.4) 06/24/20 18:51 Basophils # (Manual) 0.0 K/mm3 (0.0-0.1) 06/24/20 18:51 Metamyelocytes # 0.2 K/mm3 06/24/20 18:51 Myelocytes # 0.0 K/mm3 06/24/20 18:51 Promyelocytes # 0.0 K/mm3 06/24/20 18:51 Blast Cells # 0.0 K/mm3 06/24/20 18:51 WBC Morphology Not Reportable 06/24/20 18:51 Hypersegmented Neuts Not Reportable 06/24/20 18:51 Hyposegmented Neuts Not Reportable 06/24/20 18:51 Hypogranular Neuts Not Reportable 06/24/20 18:51 Smudge Cells Not Reportable 06/24/20 18:51 Toxic Granulation Not Reportable 06/24/20 18:51 Toxic Vacuolation Not Reportable 06/24/20 18:51 Dohle Bodies Not Reportable 06/24/20 18:51 Pelger-Huet Anomaly Not Reportable 06/24/20 18:51 Anna Rods Not Reportable 06/24/20 18:51 Platelet Estimate Consistent w auto 06/24/20 18:51 Clumped Platelets Not Reportable 06/24/20 18:51 Plt Clumps, EDTA Not Reportable 06/24/20 18:51 Large Platelets Not Reportable 06/24/20 18:51 Giant Platelets Not Reportable 06/24/20 18:51 Platelet Satelliting Not Reportable 06/24/20 18:51 Plt Morphology Comment Not Reportable 06/24/20 18:51 RBC Morphology Normal 06/24/20 18:51 Dimorphic RBCs Not Reportable 06/24/20 18:51 Polychromasia Not Reportable 06/24/20 18:51 Hypochromasia Not Reportable 06/24/20 18:51 Poikilocytosis Not Reportable 06/24/20 18:51 Anisocytosis Not Reportable 06/24/20 18:51 Microcytosis Not Reportable 06/24/20 18:51 Macrocytosis Not Reportable 06/24/20 18:51 Spherocytes Not Reportable 06/24/20 18:51 Pappenheimer Bodies Not Reportable 06/24/20 18:51 Sickle Cells Not Reportable 06/24/20 18:51 Target Cells Not Reportable 06/24/20 18:51 Tear Drop Cells Not Reportable 06/24/20 18:51 Ovalocytes Not Reportable 06/24/20 18:51 Helmet Cells Not Reportable 06/24/20 18:51 [place] Bodies Not Reportable 06/24/20 18:51 Winston Rings Not Reportable 06/24/20 18:51 [place] Cells Not Reportable 06/24/20 18:51 Bite Cells Not Reportable 06/24/20 18:51 Crenated Cell Not Reportable 06/24/20 18:51 Elliptocytes Not Reportable 06/24/20 18:51 Acanthocytes (Spur) Not Reportable 06/24/20 18:51 Rouleaux Not Reportable 06/24/20 18:51 Hemoglobin C Crystals Not Reportable 06/24/20 18:51 Schistocytes Not Reportable 06/24/20 18:51 Malaria parasites Not Reportable 06/24/20 18:51 Compa Bodies Not Reportable 06/24/20 18:51 Hem Pathologist Commnt No 06/24/20 18:51 PT 14.0 Sec. (12.2-14.9) 06/25/20 03:07 INR 1.07 (0.87-1.13) 06/25/20 03:07 D-Dimer 539.51 ng/mlDDU (0-234) H 06/24/20 23:49 Sodium 137 mmol/L (137-145) 06/27/20 04:23 Potassium 4.1 mmol/L (3.6-5.0) D 06/27/20 04:23 Chloride 95.6 mmol/L (98-107) L 06/27/20 04:23 Carbon Dioxide 27 mmol/L (22-30) 06/27/20 04:23 Anion Gap 19 mmol/L 06/27/20 04:23 BUN 18 mg/dL (9-20) 06/27/20 04:23 Creatinine 0.7 mg/dL (0.8-1.3) L 06/27/20 04:23 Estimated GFR > 60 ml/min 06/27/20 04:23 BUN/Creatinine Ratio 26 % 06/27/20 04:23 Glucose 276 mg/dL (75-100) H 06/27/20 04:23 POC Glucose 239 (70-105) H 06/27/20 12:25 Calcium 9.6 mg/dL (8.4-10.2) 06/27/20 04:23 Ferritin 3640.0 ng/mL (30.0-300.0) H 06/24/20 23:49 Total Bilirubin 1.90 mg/dL (0.1-1.2) H 06/24/20 18:51 AST 87 units/L (5-40) H 06/24/20 18:51 ALT 63 units/L (7-56) H 06/24/20 18:51 Alkaline Phosphatase 53 units/L (35-129) 06/24/20 18:51 Lactate Dehydrogenase 388 units/L (91-180) H 06/24/20 23:49 C-Reactive Protein 10.60 mg/dL (0.00-1.30) H 06/24/20 23:49 NT-Pro-B Natriuret Pep 40.72 pg/mL (0-900) 06/24/20 18:57 Total Protein 8.8 g/dL (6.3-8.2) H 06/24/20 18:51 Albumin 3.4 g/dL (3.9-5) L 06/24/20 18:51 Albumin/Globulin Ratio 0.6 % 06/24/20 18:51 Procalcitonin 0.07 ng/mL (<0.15) 06/24/20 23:49 Coronavirus (PCR) Positive (Negative) A 06/24/20 Unknown Microbiology: Microbiology 06/24/20 19:06 Peripheral/Venous Blood Culture - Preliminary NO GROWTH AFTER 48 HOURS 06/24/20 19:10 Peripheral/Venous Blood Culture - Preliminary NO GROWTH AFTER 48 HOURS Breaux/IV: Voiding Method Urinal IV Catheter Type [Right INT / Saline Lock Forearm] Active Medications - Current Medications Current Medications: Generic Name Dose Route Start Last Admin Trade Name Freq PRN Reason Stop Dose Admin Acetaminophen 650 mg 06/24/20 23:05 Tylenol PO Q4H PRN Pain MILD(1-3)/Fever >100.5/OLIVER Dexamethasone 6 mg 06/26/20 10:00 06/27/20 09:48 Decadron PO 07/04/20 10:01 6 mg DAILY VENU Administration Dextrose 50 ml 06/24/20 23:05 D50w (25gm) Syringe IV Q30MIN PRN Hypoglycemia Protocol Enoxaparin Sodium 40 mg 06/25/20 22:00 06/26/20 21:08 Enoxaparin SUB-Q 40 mg QDAY@2200 VENU Administration REMDESIVIR 100 mg/ Sodium 250 mls @ 500 mls/hr 06/26/20 21:00 06/26/20 21:08 Chloride IV 06/29/20 21:29 500 mls/hr Q24HR@2100 VENU Administration Insulin Human Lispro 0 unit 06/25/20 07:30 06/27/20 12:20 Humalog SUB-Q 3 unit ACHS VENU Administration Protocol Magnesium Hydroxide 30 ml 06/24/20 23:05 Milk Of Magnesia PO Q4H PRN Constipation Ondansetron HCl 4 mg 06/24/20 23:05 Zofran IV Q8H PRN Nausea And Vomiting Sodium Chloride 10 ml 06/25/20 10:00 06/27/20 09:48 Sodium Chloride Flush Syringe 10 Ml IV 10 ml BID VENU Administration Sodium Chloride 10 ml 06/24/20 23:05 Sodium Chloride Flush Syringe 10 Ml IV PRN PRN LINE FLUSH Sodium Chloride 50 ml 06/26/20 21:00 06/26/20 21:09 Nacl 0.9% IV 06/29/20 21:01 50 ml Q24HR@2100 VENU Administration Nutrition/Malnutrition Assess - Dietary Evaluation Nutrition/Malnutrition Findings: Nutrition Notes Start: 06/25/20 15:25 Freq: Status: Active Protocol: Document 06/25/20 15:25 LM (Rec: 06/25/20 15:28 LM [id number]) Nutrition Notes Need for Assessment generated from: MD Order,Education Initial or Follow up Brief Note Subjective/Other Information MD consult for diet education. Pt stated he was eating well [employer] and now. Pt stated that he weighed 264 lb a "while back" . Provided pt with DM diet education to pt. Discussed CHO sources, portions, and the plate method. #1 Nutrition Diagnosis Food and nutrition-related knowledge deficit Etiology No prior DM diet education As Evidenced by Signs and Symptoms BG 282, pt wanting education Nutrition Intervention Teaching Recipient Patient Learning Readiness Fair Teaching Methods Discussion Response to Teaching Verbalize understanding, Reinforcement needed Barriers to Learning Age related RD phone number provided Yes Patient aware of follow up options Yes Revisit per MD consult or patient Sign Off request:
--- NOTE | 2020-06-27 14:52 | Progress Note ---
Assessment and Plan Cultures: Coronavirus PCR: positive Blood culture: no growth thus far A/P: 69-year-old male with hypertension, CHF, diabetes, dementia, COPD admitted to the hospital with generalized malaise, shortness of breath, cough over the last 2 weeks: #Bilateral pneumonia: secondary to COVID-19, test positive, elevated markers. #Acute hypoxic respiratory failure: on 2 lit/min NC. #DM: maintain glycemic control. #Leucopenia: likely from COVID-19. Resolved. Recs: IV/PO Dexamethasone 6 mg daily x 10 days, D3 IV Remdesivir Day 3 of 5 prophylactic anticoagulation based on d-dimer trend ferritin, LDH, d-dimer, CRP every 2-3 days for risk stratification and to assess disease progression Vesta Tinsley MD, FACP [facility] ([facility] C: [phone] O: [phone] F: [phone] Subjective Date of service: 06/27/20 Principal diagnosis: Acute respiratory failure Interval history: No fever. On 2 liters NC. Objective - Exam Narrative Exam: Physical Exam (reviewed in chart due to PPE conservation) Constitutional: limited due to PPE conservation strategy Head, Ears, Nose: limited due to PPE conservation strategy Eyes: limited due to PPE conservation strategy Neck: limited due to PPE conservation strategy Oral: limited due to PPE conservation strategy Cardiovascular: limited due to PPE conservation strategy Respiratory: limited due to PPE conservation strategy GI: limited due to PPE conservation strategy Musculoskeletal: limited due to PPE conservation strategy Skin: limited due to PPE conservation strategy Hem/Lymphatic: limited due to PPE conservation strategy Psych: limited due to PPE conservation strategy Neurological: limited due to PPE conservation strategy - Constitutional Vitals: Vital Signs Temp Pulse Resp BP Pulse Ox 97.3 F L 57 L 22 148/88 92 06/27/20 12:00 06/27/20 12:00 06/27/20 12:00 06/27/20 12:00 06/27/20 12:00 Temperature -Last 24 Hours Temperature 97.3 F Temperature 97.4 F Temperature 97.5 F Temperature 97.9 F - Labs CBC & Chem 7: 06/27/20 04:23 06/27/20 04:23 Labs: Abnormal lab results 06/26/20 06/26/20 06/27/20 Range/Units 17:47 21:56 04:23 Lymph % (Auto) 7.3 L (13.4-35.0) % [place] % (Auto) 13.4 H (0.0-7.3) % Lymph # 0.8 L (1.2-5.4) K/mm3 [place] # 1.5 H (0.0-0.8) K/mm3 Seg Neutrophils % 79.1 H (40.0-70.0) % Seg Neutrophils # 8.6 H (1.8-7.7) K/mm3 Chloride (98-107) mmol/L Creatinine (0.8-1.3) mg/dL Glucose (75-100) mg/dL POC Glucose 250 H 265 H (70-105) 06/27/20 06/27/20 06/27/20 Range/Units 04:23 08:12 12:25 Lymph % (Auto) (13.4-35.0) % [place] % (Auto) (0.0-7.3) % Lymph # (1.2-5.4) K/mm3 [place] # (0.0-0.8) K/mm3 Seg Neutrophils % (40.0-70.0) % Seg Neutrophils # (1.8-7.7) K/mm3 Chloride 95.6 L (98-107) mmol/L Creatinine 0.7 L (0.8-1.3) mg/dL Glucose 276 H (75-100) mg/dL POC Glucose 225 H 239 H (70-105)
[2020-06-27] MEDS ORDERED: PANTOPRAZOLE SODIUM PO SCH (15:15)
[2020-06-27] MEDS ORDERED: hydrALAZINE 20 MG/1 ML INJ IV PRN (15:15)
[2020-06-27] MEDS ORDERED: NIFEdipine XL 60 MG TAB PO SCH (22:00)
[2020-06-27] MEDS: SODIUM CHLORIDE 0.9% 50 ML IVPB IV SCH (23:10)
[2020-06-27] MEDS: REMDESIVIR 100 MG in SODIUM CHLORIDE 0.9% 250ML 250 ML IV SCH (23:10)
[2020-06-27] MEDS: ENOXAPARIN 40 MG/0.4 ML INJ SUB-Q SCH (23:11)
--- NOTE | 2020-06-28 09:42 | Progress Note ---
Assessment and Plan Assessment and Plan - Patient Problems (1) Pneumonia due to COVID-19 virus Current Visit: Yes Status: Acute Plan to address problem: Continue Dexamethasone PO (06/25-07/05) Continue IV Remdesivir (06/24-06/29) ID consulted-following Trend inflammatory makers LDH, d-dimer, CRP Supplemental oxygenation as needed OOB 3 times daily and as needed continue Droplet/contact precautions Respiratory care/Pulmonary hygiene (2) Acute respiratory failure with hypoxia Current Visit: Yes Status: Acute Plan to address problem: Patient was hypoxic on presentation respiratory care with oxygen supplement (3) Diabetes mellitus Current Visit: Yes Status: Chronic Plan to address problem: Monitor blood sugar with SSI Discussed diabetic diet-including avoidance of foods rich in concentrated sweetners (4) CHF (congestive heart failure) Current Visit: Yes Status: Chronic Plan to address problem: Continue cardioprotective measure-ASA, Diuretic and statin At present seems to be fairly well compensated heart failure (5) HTN (hypertension) Current Visit: No Status: Chronic Plan to address problem: Continue antihypertensive-hydrochlorothiazide, Procardia Monitor Blood pressure monitor per IV hydralazine PRN (6) DVT prophylaxis Current Visit: No Status: Acute Plan to address problem: - SCDs while in bed - Lovenox subq Subjective Date of service: 06/28/20 Principal diagnosis: Acute respiratory failure Interval history: Patient seen at bedside sitting at bedside. patient on oxygen supplement-2l N/C reviewed lab, mar, and v/s. he reports he is feeling better but feels tired on exertion. Will continue covid protocol Will check home oxygen eval. for d/c Objective - Constitutional Vitals: Vital Signs - 12hr 06/28/20 03:50 Temperature 97.9 F Pulse Rate 56 L Respiratory 20 Rate Blood Pressure 159/91 O2 Sat by Pulse 89 Oximetry General appearance: Present: no acute distress, well-nourished - EENT Eyes: PERRL, EOM intact ENT: hearing intact, clear oral mucosa Ears: bilateral: normal - Neck Neck: supple, normal ROM - Respiratory Respiratory effort: normal, other (on oxygen supplement) Respiratory: bilateral: CTA, diminished (admits tobacco use but quit 5 years ago) - Breasts Breasts: normal - Cardiovascular Rhythm: regular Heart Sounds: Present: S1 & S2. Absent: gallop, rub Extremities: pulses intact, No edema, normal color, Full ROM - Gastrointestinal General gastrointestinal: Present: soft, non-tender, non-distended, normal bowel sounds - Genitourinary Male genitourinary: normal - Integumentary Integumentary: clear, warm, dry - Musculoskeletal Musculoskeletal: 1, strength equal bilaterally - Neurologic Neurologic: moves all extremities - Psychiatric Psychiatric: memory intact, appropriate mood/affect, intact judgment & insight - Labs CBC & Chem 7: 06/27/20 04:23 06/27/20 04:23 Labs: Abnormal lab results 06/27/20 06/27/20 06/28/20 Range/Units 12:25 17:29 08:14 POC Glucose 239 H 323 H 219 H (70-105)
[2020-06-28] MEDS: NIFEdipine XL 30 MG TAB PO SCH (09:56)
[2020-06-28] MEDS: INSULIN LISPRO 100 UNIT/ML VIAL 3 mL SUB-Q SCH ×4 (09:56→22:02)
[2020-06-28] MEDS: DEXAMETHASONE 4 MG TAB PO SCH (09:56)
[2020-06-28] MEDS: ASPIRIN EC 81 MG TAB PO SCH (09:56)
[2020-06-28] MEDS: hydroCHLOROthiazide 25 MG TAB PO SCH (09:56)
[2020-06-28] MEDS: PANTOPRAZOLE 40 MG TAB PO SCH (09:57)
--- NOTE | 2020-06-28 10:56 | Progress Note ---
Assessment and Plan Cultures: Coronavirus PCR: positive Blood culture: no growth thus far A/P: 69-year-old male with hypertension, CHF, diabetes, dementia, COPD admitted to the hospital with generalized malaise, shortness of breath, cough over the last 2 weeks: #Bilateral pneumonia: secondary to COVID-19, test positive, elevated markers. #Acute hypoxic respiratory failure: on 5 lit/min NC. #DM: maintain glycemic control. #Leucopenia: likely from COVID-19. Resolved. Recs: IV/PO Dexamethasone 6 mg daily x 10 days, D4 IV Remdesivir Day 4 of 5 prophylactic anticoagulation based on d-dimer trend ferritin, LDH, d-dimer, CRP every 2 days for risk stratification and to assess disease progression Vesta Tinsley MD, FACP [facility] C: [phone] O: [phone] F: [phone] Subjective Date of service: 06/28/20 Principal diagnosis: Acute respiratory failure Interval history: No fever. oxygen requirements up to 5 liters NC. Objective - Exam Narrative Exam: Physical Exam (reviewed in chart due to PPE conservation) Constitutional: limited due to PPE conservation strategy Head, Ears, Nose: limited due to PPE conservation strategy Eyes: limited due to PPE conservation strategy Neck: limited due to PPE conservation strategy Oral: limited due to PPE conservation strategy Cardiovascular: limited due to PPE conservation strategy Respiratory: limited due to PPE conservation strategy GI: limited due to PPE conservation strategy Musculoskeletal: limited due to PPE conservation strategy Skin: limited due to PPE conservation strategy Hem/Lymphatic: limited due to PPE conservation strategy Psych: limited due to PPE conservation strategy Neurological: limited due to PPE conservation strategy - Constitutional Vitals: Vital Signs Temp Pulse Resp BP Pulse Ox 97.9 F 56 L 20 159/91 89 06/28/20 03:50 06/28/20 03:50 06/28/20 03:50 06/28/20 03:50 06/28/20 03:50 Temperature -Last 24 Hours Temperature 97.9 F Temperature 97.8 F Temperature 97.3 F - Labs CBC & Chem 7: 06/27/20 04:23 06/27/20 04:23 Labs: Abnormal lab results 06/27/20 06/27/20 06/28/20 Range/Units 12:25 17:29 08:14 POC Glucose 239 H 323 H 219 H (70-105)
[2020-06-28] MEDS: ENOXAPARIN 40 MG/0.4 ML INJ SUB-Q SCH (22:01)
[2020-06-28] MEDS: REMDESIVIR 100 MG in SODIUM CHLORIDE 0.9% 250ML 250 ML IV SCH (22:02)
[2020-06-28] MEDS: SODIUM CHLORIDE 0.9% 50 ML IVPB IV SCH (22:03)
[2020-06-29 08:21] LABS: C-Reactive Protein 3.8 mg/dL (0.00-1.30)
[2020-06-29] MEDS: INSULIN LISPRO 100 UNIT/ML VIAL 3 mL SUB-Q SCH ×4 (08:45→21:39)
--- NOTE | 2020-06-29 10:47 | Progress Note ---
Assessment and Plan Assessment and Plan - Patient Problems (1) Pneumonia due to COVID-19 virus Current Visit: Yes Status: Acute Plan to address problem: Continue Dexamethasone PO (06/25-07/05) Continue IV Remdesivir (06/24-06/29)-complete dose today ID consulted-following Trend inflammatory makers LDH, d-dimer, CRP Supplemental oxygenation as needed OOB 3 times daily and as needed continue Droplet/contact precautions Respiratory care/Pulmonary hygiene (2) Acute respiratory failure with hypoxia Current Visit: Yes Status: Acute Plan to address problem: Patient was hypoxic on presentation respiratory care with oxygen supplement (3) Diabetes mellitus Current Visit: Yes Status: Chronic Plan to address problem: Monitor blood sugar with SSI Discussed diabetic diet-including avoidance of foods rich in concentrated sweetners (4) CHF (congestive heart failure)-stable Current Visit: Yes Status: Chronic Plan to address problem: Continue cardioprotective measure-ASA, Diuretic and statin At present seems to be fairly well compensated heart failure (5) HTN (hypertension)-stable BP 127/78 today Current Visit: No Status: Chronic Plan to address problem: Continue antihypertensive-hydrochlorothiazide, Procardia Monitor Blood pressure monitor per IV hydralazine PRN (6) DVT prophylaxis Current Visit: No Status: Acute Plan to address problem: - SCDs while in bed - Lovenox subq Elevated d-dimer -May need low dose eliquis 2.5 mg bid for 30 days at d/c Subjective Principal diagnosis: Acute respiratory failure Interval history: Patient seen at bedside sitting at bedside. patient on oxygen supplement-2l N/C Patient reports he has mild sob with activity reviewed lab, mar, and v/s. Elevated d-dimer greater than 600 CT of the chest ordered with contrast-r/o PE Reviewed ID note and reces Will continue covid protocol Will check home oxygen eval. for d/c Reviewed SW note-d/c patient home with family assist when stable Will d/c patient when cleared by ID Will complete Remdesivir today Objective - Constitutional Vitals: Vital Signs - 12hr 06/29/20 06:18 Temperature 98.1 F Pulse Rate 60 Respiratory 16 Rate Blood Pressure 127/78 O2 Sat by Pulse 93 Oximetry General appearance: Present: no acute distress, other (frail appearing patient not in acute distress) - EENT Eyes: PERRL, EOM intact ENT: hearing intact, clear oral mucosa Ears: bilateral: normal - Neck Neck: supple, normal ROM - Respiratory Respiratory effort: other (On oxygen per N/C. Report tobacco use but quit 5 years ago) Respiratory: bilateral: CTA - Breasts Breasts: normal - Cardiovascular Heart rate: 79 Rhythm: regular Heart Sounds: Present: S1 & S2. Absent: gallop, rub Extremities: pulses intact, No edema, normal color, Full ROM - Gastrointestinal General gastrointestinal: Present: soft, non-tender, non-distended, normal bowel sounds - Genitourinary Male genitourinary: normal - Integumentary Integumentary: clear, warm, dry - Musculoskeletal Musculoskeletal: 1, strength equal bilaterally - Neurologic Neurologic: moves all extremities - Psychiatric Psychiatric: memory intact, appropriate mood/affect, intact judgment & insight - Labs CBC & Chem 7: 06/27/20 04:23 06/29/20 07:29 Labs: Abnormal lab results 06/28/20 06/28/20 06/28/20 Range/Units 11:23 11:23 11:35 D-Dimer 649.98 H (0-234) ng/mlDDU Glucose (75-100) mg/dL POC Glucose 247 H (70-105) Ferritin (30.0-300.0) ng/mL Lactate Dehydrogenase 279 H (91-180) units/L C-Reactive Protein 2.00 H (0.00-1.30) mg/dL 06/28/20 06/28/20 06/29/20 Range/Units 18:08 22:08 07:29 D-Dimer 608.02 H (0-234) ng/mlDDU Glucose (75-100) mg/dL POC Glucose 382 H 321 H (70-105) Ferritin (30.0-300.0) ng/mL Lactate Dehydrogenase (91-180) units/L C-Reactive Protein (0.00-1.30) mg/dL 06/29/20 06/29/20 06/29/20 Range/Units 07:29 07:29 08:03 D-Dimer (0-234) ng/mlDDU Glucose 243 H (75-100) mg/dL POC Glucose 253 H (70-105) Ferritin 2195.0 H (30.0-300.0) ng/mL Lactate Dehydrogenase 276 H (91-180) units/L C-Reactive Protein 3.80 H (0.00-1.30) mg/dL
[2020-06-29] MEDS: DEXAMETHASONE 4 MG TAB PO SCH (11:04)
[2020-06-29] MEDS: NIFEdipine XL 30 MG TAB PO SCH (11:05)
[2020-06-29] MEDS: hydroCHLOROthiazide 25 MG TAB PO SCH (11:05)
[2020-06-29] MEDS: PANTOPRAZOLE 40 MG TAB PO SCH (11:05)
[2020-06-29] MEDS: ASPIRIN EC 81 MG TAB PO SCH (11:05)
--- NOTE | 2020-06-29 13:18 | Progress Note ---
Assessment and Plan Cultures: Coronavirus PCR: positive Blood culture: no growth thus far A/P: 69-year-old male with hypertension, CHF, diabetes, dementia, COPD admitted to the hospital with generalized malaise, shortness of breath, cough over the last 2 weeks: #Bilateral pneumonia: secondary to COVID-19, test positive, elevated markers. #Acute hypoxic respiratory failure: improving. now on 2 lit/min NC. #DM: maintain glycemic control. #Leucopenia: likely from COVID-19. Resolved. Recs: IV/PO Dexamethasone 6 mg daily x 10 days, D5 IV Remdesivir Day 5 of 5 prophylactic anticoagulation based on d-dimer trend ferritin, LDH, d-dimer, CRP every 2 days for risk stratification and to assess disease progression ambulatory sats prior to discharge, hopefully tomorrow Vesta Tinsley MD, FACP [facility] C: [phone] O: [phone] F: [phone] Subjective Date of service: 06/29/20 Principal diagnosis: Acute respiratory failure Interval history: No fever. Oxygen slowly being weaned to 2 liters/min. Objective - Exam Narrative Exam: Physical Exam (reviewed in chart due to PPE conservation) Constitutional: limited due to PPE conservation strategy Head, Ears, Nose: limited due to PPE conservation strategy Eyes: limited due to PPE conservation strategy Neck: limited due to PPE conservation strategy Oral: limited due to PPE conservation strategy Cardiovascular: limited due to PPE conservation strategy Respiratory: limited due to PPE conservation strategy GI: limited due to PPE conservation strategy Musculoskeletal: limited due to PPE conservation strategy Skin: limited due to PPE conservation strategy Hem/Lymphatic: limited due to PPE conservation strategy Psych: limited due to PPE conservation strategy Neurological: limited due to PPE conservation strategy - Constitutional Vitals: Vital Signs Temp Pulse Resp BP Pulse Ox 98.1 F 60 16 127/78 93 06/29/20 06:18 06/29/20 06:18 06/29/20 06:18 06/29/20 06:18 06/29/20 06:18 Temperature -Last 24 Hours Temperature 98.1 F Temperature 97.7 F Temperature 97.7 F - Labs CBC & Chem 7: 06/27/20 04:23 06/29/20 07:29 Labs: Abnormal lab results 06/28/20 06/28/20 06/29/20 Range/Units 18:08 22:08 07:29 D-Dimer 608.02 H (0-234) ng/mlDDU Glucose (75-100) mg/dL POC Glucose 382 H 321 H (70-105) Ferritin (30.0-300.0) ng/mL Lactate Dehydrogenase (91-180) units/L C-Reactive Protein (0.00-1.30) mg/dL 06/29/20 06/29/20 06/29/20 Range/Units 07:29 07:29 08:03 D-Dimer (0-234) ng/mlDDU Glucose 243 H (75-100) mg/dL POC Glucose 253 H (70-105) Ferritin 2195.0 H (30.0-300.0) ng/mL Lactate Dehydrogenase 276 H (91-180) units/L C-Reactive Protein 3.80 H (0.00-1.30) mg/dL 06/29/20 Range/Units 12:07 D-Dimer (0-234) ng/mlDDU Glucose (75-100) mg/dL POC Glucose 257 H (70-105) Ferritin (30.0-300.0) ng/mL Lactate Dehydrogenase (91-180) units/L C-Reactive Protein (0.00-1.30) mg/dL
--- NOTE | 2020-06-29 18:29 | Cat Scan Report ---
CTA CHEST WITH IV CONTRAST INDICATION: Shortness of breath. TECHNIQUE: Axial CT images were obtained through the chest after injection of IV contrast. 3 plane MIP reconstru ctions were produced. All CT scans at this location are performed using CT dose reduction for ALARA b y means of automated exposure control. COMPARISON: None available. FINDINGS: Pulmonary Arteries: No pulmonary emboli. Thoracic Aorta: No acute abnormality. Heart: Heart size is normal. Advanced coronary artery calcification is noted. Lungs: There are patchy, predominantly peripheral consolidative and groundglass opacities bilaterally . Pleura: No pleural effusion. No pneumothorax. Lymph Nodes: 2.1 cm anterior mediastinal nodule concerning for pathologic lymph node. Additional Findings: None. Upper Abdomen: No acute findings. Skeletal Structures: No significant osseous abnormality. IMPRESSION: 1. No CT evidence for pulmonary embolism. 2. Bilateral pulmonary findings are concerning for atypical/viral infection. 3. 2.1 cm anterior mediastinal nodule is nonspecific but could be a reactive lymph node node. Follow- up is recommended. Signer Name: Hubert Long MD Signed: 06/29/2020 6:25 PM Workstation Name: [id number]
[2020-06-29] MEDS: REMDESIVIR 100 MG in SODIUM CHLORIDE 0.9% 250ML 250 ML IV SCH (21:38)
[2020-06-29] MEDS: SODIUM CHLORIDE 0.9% 50 ML IVPB IV SCH (21:38)
[2020-06-29] MEDS: ENOXAPARIN 40 MG/0.4 ML INJ SUB-Q SCH (21:40)
[2020-06-30] MEDS: INSULIN LISPRO 100 UNIT/ML VIAL 3 mL SUB-Q SCH ×3 (08:29→17:57)
[2020-06-30] MEDS: ASPIRIN EC 81 MG TAB PO SCH (10:10)
[2020-06-30] MEDS: hydroCHLOROthiazide 25 MG TAB PO SCH (10:10)
[2020-06-30] MEDS: PANTOPRAZOLE 40 MG TAB PO SCH (10:10)
[2020-06-30] MEDS: NIFEdipine XL 30 MG TAB PO SCH (10:10)
[2020-06-30] MEDS: DEXAMETHASONE 4 MG TAB PO SCH (10:10)
--- NOTE | 2020-06-30 12:56 | Discharge Summary ---
Providers - Providers Date of Admission: 06/25/20 13:17 Attending physician: LAUREN MCGUIRE 06/24/20 23:05 Consult to Dietitian/Nutrition [CONS] Routine Physician Instructions: Reason For Exam: Reason for Consult: Diet education 06/24/20 23:10 Consult to Physician [CONS] Routine Comment: Consulting Provider: AMANDO BAUTISTA Physician Instructions: Reason For Exam: PNEUMONIA R/O COVID 19 Primary care physician: [facility] [employer] [facility] Hospitalization Condition: Stable Procedures: 06/29: CT chest w/ contrast: 1. No CT evidence for pulmonary embolism. 2. Bilateral pulmonary findings are concerning for atypical/viral infection. 3. 2.1 cm anterior mediastinal nodule is nonspecific but could be a reactive lymph node node. 06/24: CXR 1. Interval development of opacities throughout the periphery of the right lung field and left lung base. Atypical versus viral infectious process leads the differential. 2. Findings consistent with congestive heart failure and mild central pulmonary vascular congestion. Hospital course: 69-year-old male with a hypertension, congestive heart failure, diabetes, COPD, GERD, dementia and pulmonary hypertension presents with acute respiratory failure, generalized malaise, and SOB. Work-up revealed congestive heart failure versus pneumonia. Patient found to be hypoxemic at 89 upon presentation and CXR showed bilateral infiltrates. He was COVID (+) on 06/25. He has completed IV remdesivir (06/24-06/29). He will be discharged to complete his course of dexmethasone till 07/05 and with Eliquis for 1 month and with home oxygen. Please followup with you primary care physician within 2 weeks of discharge for oxygenation weaning. (1) Pneumonia due to COVID-19 virus Current Visit: Yes Status: Acute Plan to address problem: Continue Dexamethasone PO (06/25-07/05) and Eliqus PO for 1 month S/P IV Remdesivir (06/24-06/29) Home oxygenation, follow up with you primary care physician after discharge for evaluation of supplemental oxygen need CT of the chest with contrast negative for pulmonary embolism (2) Acute respiratory failure with hypoxia Current Visit: Yes Status: Acute Plan to address problem: Discharged on PO dexamethasone and with supplemental oxygen (3) Diabetes mellitus Current Visit: Yes Status: Chronic Plan to address problem: Continue with home management Check your blood glucose as instructed by your primary care physician (4) CHF (congestive heart failure)-stable Current Visit: Yes Status: Chronic Plan to address problem: Continue cardioprotective measure-ASA, Diuretic and statin (5) HTN (hypertension) Current Visit: No Status: Chronic Plan to address problem: Continue home management with antihypertensive-hydrochlorothiazide, Procardia Monitor Blood pressure daily at home (6) DVT prophylaxis Current Visit: No Status: Acute Plan to address problem: -Elevated d-dimer, Eliquis 2.5 mg bid for 30 days Disposition: DC- TO HOME OR SELFCARE Core Measure Documentation - Palliative Care Palliative Care/ Comfort Measures: Not Applicable - Core Measures Any of the following diagnoses?: history only Exam - Constitutional Vitals: Temp Pulse Resp BP Pulse Ox 98.3 F 73 20 119/69 94 06/30/20 11:29 06/30/20 11:29 06/30/20 11:29 06/30/20 11:29 06/30/20 11:29 General appearance: Present: no acute distress - EENT Eyes: Present: PERRL ENT: hearing intact - Neck Neck: Present: normal ROM - Respiratory Respiratory effort: normal Respiratory: bilateral: diminished - Cardiovascular Rhythm: regular Heart Sounds: Present: S1 & S2. Absent: systolic murmur, diastolic murmur - Extremities Extremities: no ischemia, pulses intact, pulses symmetrical, No edema, normal temperature, normal color, Full ROM Peripheral Pulses: within normal limits - Abdominal General gastrointestinal: Present: soft, non-tender, non-distended, normal bowel sounds - Integumentary Integumentary: Present: clear, warm, dry - Musculoskeletal Musculoskeletal: strength equal bilaterally - Psychiatric Psychiatric: appropriate mood/affect, cooperative - Neurologic Neurologic: CNII-XII intact, no focal deficits, moves all extremities - Allied Health Allied health notes reviewed: nursing, social work, case management Plan Activity: advance as tolerated Diet: low fat, low cholesterol, low salt, diabetic Special Instructions: record daily BP diary, record blood sugar diary, home oxygen via Durable Medical Equipment Needed Upon Discharge: Oxygen Additional Instructions: Report to your nearest ED or call you PCP with worsening symptoms. Please follow COVID-19 guidelines from the CDC and the booklet your nurse will provide you. Please followup wth you PCP for evaluation of continuing oxygen needs. Follow up with: PRIMARY CAREMD [Primary Care Provider] - 7 Days Prescriptions: Dexamethasone [Decadron] 6 mg PO DAILY #4 tablet Apixaban [Eliquis] 2.5 mg PO BID 30 Days #60 tablet NIFEdipine XL [Procardia Xl] 30 mg PO DAILY #30 tablet
--- NOTE | 2020-06-30 13:19 | Progress Note ---
Assessment and Plan Cultures: Coronavirus PCR: positive Blood culture: no growth thus far A/P: 69-year-old male with hypertension, CHF, diabetes, dementia, COPD admitted to the hospital with generalized malaise, shortness of breath, cough over the last 2 weeks: #Bilateral pneumonia: secondary to COVID-19, test positive, elevated markers. Completed Remdesivir. On steroids. #Acute hypoxic respiratory failure: remains on oxygen. #DM: maintain glycemic control. #Leucopenia: likely from COVID-19. Resolved. Recs: IV/PO Dexamethasone 6 mg daily x 10 days, D6 Remdesivir completed noted plans for discharge on home oxygen. please ensure patient has pulm clinic or PCP follow up for oxygen weaning Vesta Tinsley MD, FACP [facility] C: [phone] O: [phone] F: [phone] Subjective Date of service: 06/30/20 Principal diagnosis: Acute respiratory failure Interval history: No fever. Remains on oxygen by nasal cannula. Objective - Exam Narrative Exam: Physical Exam (reviewed in chart due to PPE conservation) Constitutional: limited due to PPE conservation strategy Head, Ears, Nose: limited due to PPE conservation strategy Eyes: limited due to PPE conservation strategy Neck: limited due to PPE conservation strategy Oral: limited due to PPE conservation strategy Cardiovascular: limited due to PPE conservation strategy Respiratory: limited due to PPE conservation strategy GI: limited due to PPE conservation strategy Musculoskeletal: limited due to PPE conservation strategy Skin: limited due to PPE conservation strategy Hem/Lymphatic: limited due to PPE conservation strategy Psych: limited due to PPE conservation strategy Neurological: limited due to PPE conservation strategy - Constitutional Vitals: Vital Signs Temp Pulse Resp BP Pulse Ox 98.3 F 73 20 119/69 94 06/30/20 11:29 06/30/20 11:29 06/30/20 11:29 06/30/20 11:29 06/30/20 11:29 Temperature -Last 24 Hours Temperature 98.3 F Temperature 98.7 F Temperature 97.6 F Temperature 97.8 F - Labs CBC & Chem 7: 06/27/20 04:23 06/29/20 07:29 Labs: Abnormal lab results 06/29/20 06/29/20 06/30/20 Range/Units 16:20 21:51 08:14 POC Glucose 343 H 300 H 252 H (70-105)
[2020-06-30 16:42] VITALS: BP 137/83
== END 2020-06-30 18:28 | disposition home or self-care (01) | DRG 177 ==
LOC: ED 18:08 → 4A 22:27 → 3A 23:28 → OBSVTOIN 06-25 13:17
PROVIDERS: ADMIT Internal Medicine Geriatric Medicine; ATTEND Hospitalist
PROC: XW033E5 Introduction of Remdesivir Anti-infective into Peripheral Vein, Percutaneous Approach, New Technology Group 5 (ICD-10-PCS; principal; 2020-06-25)
PROC: XW033E5 Introduction of Remdesivir Anti-infective into Peripheral Vein, Percutaneous Approach, New Technology Group 5 (ICD-10-PCS; 2020-06-26)
DX: U07.1 COVID-19 (principal); J96.01 Acute respiratory failure with hypoxia; J12.89 Other viral pneumonia; I50.9 Heart failure, unspecified; I11.0 Hypertensive heart disease with heart failure; E11.9 Type 2 diabetes mellitus without complications; J44.9 Chronic obstructive pulmonary disease, unspecified; K21.9 Gastro-esophageal reflux disease without esophagitis; F03.90 Unspecified dementia, unspecified severity, without behavioral disturbance, psychotic disturbance, mood disturbance, and anxiety; I27.20 Pulmonary hypertension, unspecified; D72.819 Decreased white blood cell count, unspecified; M19.90 Unspecified osteoarthritis, unspecified site; Z87.891 Personal history of nicotine dependence; Z88.8 Allergy status to other drugs, medicaments and biological substances
CPT/HCPCS: 36415; 71045; 71275; 80048; 80053; 82728; 82947; 82962; 83615; 83880; 84145; 85007; 85025; 85379; 85610; 86140; 87040; 93005; 94760; G0378; J0456; J0696; J1100; J1650; J1940; J7050; J8540; Q9967; U0003-CS